=== PATIENT | male | born 1955 | race Caucasian/White ===

== ENCOUNTER 2020-06-18 03:25 | Inpatient (IN) | payer OTHER, MEDICAID, SELFPAY ==
[2020-06-18] VITALS (28 sets, daily range): BP systolic 90–148; BP diastolic 54–86; PULSE 90–121; RESP 13–34; TEMP 36.1–38.8; O2SAT 92–100; BMI 22.6; BMI 20.6
--- NOTE | 2020-06-18 | DI.RAD.S_ITS ---
PROCEDURE: XR HIP W PEL IF DONE RT 2V INDICATIONS: RIGHT ORIF FEMUR NAIL TECHNIQUE: 4 intraoperative views of the hip were acquired. COMPARISON: Located Within [facility], CR, XR HIP W PEL IF DONE RT 2V, 06/18/2020, 3:47. FINDINGS: Right hip intramedullary vivian and dynamic hip screws. Hardware is in the expected position. Right hip intertrochanteric fracture. No dislocation. IMPRESSION: Intraoperative image guidance provided. Dictated by: Aristeo Lam M.D. on 06/18/2020 at 22:13 Approved by: Aristeo Lam M.D. on 06/18/2020 at 22:15
--- NOTE | 2020-06-18 03:39 | DI.RAD.S_ITS ---
PROCEDURE: XR HIP W PEL IF DONE RT 2V INDICATIONS: fall, hip fracture on exam TECHNIQUE: AP pelvis with lateral view(s) of the right hip(s). COMPARISON: None. FINDINGS: Bones: Comminuted, intertrochanteric proximal right femur fracture which is in varus angulation. Postsurgical changes compatible with ORIF left femur fracture. Soft tissues: The visualized bowel gas pattern is normal. No suspicious soft tissue calcifications. IMPRESSION: Acute, comminuted, intertrochanteric right femur fracture. Dictated by: Galilea Patterson MD, PhD on 06/18/2020 at 8:44 Approved by: Galilea Patterson MD, PhD on 06/18/2020 at 8:45
--- NOTE | 2020-06-18 03:57 | ED.LOWEXIN ---
HPI - Extremity Injury (Lower) General Chief Complaint: Extremity Injury, Lower Stated Complaint: Right hip pain Time Seen by Provider: 06/18/20 03:25 Source: patient, family and EMS Mode of arrival: EMS Limitations: no limitations History of Present Illness HPI Narrative: 65M smoker with history of alcohol abuse presents by EMS from [facility] for evaluation of hip injury. He states he fell a few days ago and has had terrible hip pain ever since. He doesn't think he hurt anything else and doesn't really know the specifics. He was in his chair and slid to the ground and has been there for an undetermined length of time. [facility] evaluated him and found him to be hemodynamically stable, but with fever, elevated HR, and Lactate 2.2 He complains of severe right hip pain and denies any other symptoms. He denies any headache, head injury or neck pain. He denies runny nose, sore throat or cough. He denies any chest pain or shortness of breath. He has no abdominal pain, nausea, vomiting or diarrhea. Denies any dysuria, frequency or urgency. He admits to significant right hip pain but denies any numbness, tingling or weakness. MD complaint: hip injury Onset (ago): unknown Injury: Right: hip Place: home Severity: severe Relieving factors: immobilization Exacerbating factors: weight bearing and movement Context: fall Associated symptoms: snap/pop sensation Other symptoms: none Related Data Previous Rx's Medication Instructions Recorded vitamin B complex-folic acid 0.4 mg PO QDAY #120 tab 06/10/16 [Complex B-100] acetaminophen 0 mg PO Q4HP PRN #30 09/07/17 chlordiazepoxide HCl 50 mg PO QID #30 cap 09/07/17 levofloxacin [Levaquin] 500 mg PO 1400 #5 tab 09/07/17 nicotine 7 mg TOPICAL QDAY #30 patch 09/07/17 Review of Systems Constitutional Constitutional: Denies chills, Denies fatigue, Denies fever(s), Denies frequent falls, Denies lethargy and Denies weakness Eyes Eyes: Denies change in vision, Denies eye discharge, Denies irritation and Denies loss of vision ENT Ears, Nose, Mouth, and Throat: Denies change in voice, Denies dizziness, Denies neck pain, Denies sore throat and Denies throat swelling Cardiovascular Cardiovascular: Denies chest pain, Denies irregular heart rhythm, Denies lightheadedness, Denies palpitations, Denies dyspnea, Denies dyspnea on exertion and Denies orthopnea Respiratory Respiratory: Denies cough, Denies dyspnea, Denies dyspnea on exertion and Denies wheezing Gastrointestinal Gastrointestinal: Denies abdominal pain, Denies change in bowel habits, Denies diarrhea, Denies nausea and Denies vomiting Musculoskeletal Musculoskeletal: Reports deformity, Reports arthralgias, Reports joint swelling, Reports limited range of motion, Denies neck pain and Denies numbness Integumentary/Breasts Skin/Breast: Denies pruritus, Denies erythema, Denies rash and Denies wounds Neurologic Neurologic: Denies behavioral changes, Denies confusion, Denies dizziness, Denies frequent falls, Denies loss of vision, Denies numbness and Denies weakness Psychiatric Psychiatric: Denies anxiety, Denies behavioral changes, Denies confusion, Denies depression, Denies homicidal ideation and Denies suicidal ideation Endocrine Endocrine: Denies fatigue, Denies flushing and Denies palpitations Hematologic/Lymphatic Hematologic/Lymphatic: Denies easy bruising Allergic/Immunologic Allergic/Immunologic: Denies urticaria, Denies throat swelling and Denies wheezing Patient History Social History Smoking Status: Current every day smoker Smoking Status: Current every day smoker Substance Use Type: does not use Exam Narrative Exam Narrative: GENERAL: [65] year old patient appears older than stated age. GCS 15. In obvious distress. Smells of urine HEAD: Atraumatic. Normocephalic. Temporal wasting. EYES: Pupils equal round and reactive. Extraocular motions intact. No scleral icterus. No injection or drainage. ENT: Nose without bleeding, purulent drainage. Throat without erythema, tonsillar hypertrophy or exudate. Airway patent. NECK: Trachea midline. Non tender CARDIOVASCULAR: Tachycardic but regular rhythm without murmurs, gallops, or rubs. RESPIRATORY: Clear to auscultation. Breath sounds equal bilaterally. No wheezes, rales, or rhonchi. GASTROINTESTINAL: Abdomen soft, non-tender, nondistended. EXTREMITIES: Significant right hip pain with shortening external rotation. There is a large purple with yellowing area of ecchymosis on the right medial thigh BACK: Nontender without deformity or crepitance. No flank tenderness. NEURO: AOx3. SKIN: No rash or erythema of visible areas Initial Vital Signs Initial Vital Signs: Vital Signs Pulse Rate 118 H 06/18/20 03:33 Blood Pressure 116/69 06/18/20 03:33 Pulse Oximetry 96 06/18/20 03:33 Course Orders Ordered: ED Orders 06/18/20 03:39 XR hip w pel if done RT 2V Stat 06/18/20 04:04 CT cervical spine wo con Stat CT chest abd pel w con Stat CT head/brain wo con Stat 06/18/20 04:06 C-Reactive Protein Quant Stat COVID19 Stat Complete Blood Count AUTO DIFF Stat Comprehensive Metabolic Panel Stat D Dimer Stat Ethanol (ETOH) Stat Ferritin Stat Lactate (Lactic Acid) Stat Lactate Dehydrogenase Stat Procalcitonin Stat Prothrombin Time INR Stat Troponin & CK Cardiac Panel Stat 06/18/20 04:17 Blood Culture Stat 06/18/20 05:15 Urinalysis and Microscopic Stat 06/18/20 06:31 Education, smoking cessation ONGOING 06/18/20 06:37 Phosphorous Stat 06/18/20 06:39 Consult to Dietitian, Adult Routine Consult to Discharge Planning Routine Lactated Ringer's (Lactated Ringers) 1,000 mls @ 100 mls/hr IV CONT SAGRARIO Metoclopramide HCl (Metoclopramide 10 Mg/2 Ml Inj) 10 mg IV Q6H PRN PRN Reason: Nausea Naloxone HCl (Naloxone 0.4 Mg/Ml Vial) 0.2 mg IV Q2MIN PRN PRN Reason: Opiate Reversal Discontinued Medications Hydromorphone HCl (Hydromorphone 0.5 Mg Inj) 0.5 mg IV NOW ONE Stop: 06/18/20 06:36 Last Admin: 06/18/20 06:38 Dose: 0.5 mg Documented by: KEVIN Levofloxacin (Levaquin) 750 mg in 150 mls @ 100 mls/hr IV NOW ONE Stop: 06/18/20 05:08 Last Admin: 06/18/20 04:42 Dose: Not Given Documented by: KEVIN Lactated Ringer's (Lactated Ringers) 1,908 mls @ 636 mls/hr 30 ml/kg infuse over 3 hr (1908 ml) IV NOW ONE Stop: 06/18/20 06:41 Last Admin: 06/18/20 04:55 Dose: 636 mls/hr Documented by: KEVIN Piperacillin Sod/Tazobactam (Sod 4.5 gm/ Sodium Chloride) 100 mls @ 200 mls/hr IV NOW ONE Stop: 06/18/20 04:24 Last Infusion: 06/18/20 05:32 Dose: 0 mls/hr Documented by: Admin: 06/18/20 04:56 Dose: 200 mls/hr Documented by: KEVIN Vancomycin HCl (Vancomycin) 1,250 mg in 250 mls @ 250 mls/hr IV NOW ONE Stop: 06/18/20 05:23 Last Infusion: 06/18/20 06:35 Dose: 0 mls/hr Documented by: Admin: 06/18/20 05:35 Dose: 250 mls/hr Documented by: KEVIN Consultations Consultation #1: Discussion with on-call Orthopedics, he is aware of the case but given the infected tissue in the region of the repair it is likely going to be a surgical debridement by General surgery 1st. Consultation #2: Call to General surgery. We discussed the case and sure the opinion based on the presentation, the exam, the labs and imaging that this is unlikely to be necrotizing fasciitis, she will see the patient early in the morning Consultation #3: Hospitalist to the bedside to perform independent history and physical exam. He will bring the patient on his service and help coordinate consultations appropriately Vital Signs Vital signs: Vital Signs - 8 hr 06/18/20 03:33 06/18/20 03:34 06/18/20 03:46 Temperature 102 F H Pulse Rate 118 H 120 H 118 H Respiratory Rate 20 Blood Pressure 116/69 116/69 122/74 Pulse Oximetry 96 97 98 06/18/20 04:00 06/18/20 04:30 06/18/20 04:32 Temperature Pulse Rate 121 H 119 H 118 H Respiratory Rate 23 Blood Pressure 141/86 H Pulse Oximetry 97 98 98 06/18/20 05:00 06/18/20 05:30 06/18/20 06:00 Temperature Pulse Rate 118 H 111 H 111 H Respiratory Rate 34 H 21 22 Blood Pressure 148/86 H Pulse Oximetry 97 98 97 MDM - Extremity Injury (Lower) Lab Data Result diagrams: 06/18/20 04:06 06/18/20 04:06 Labs: Lab Results 06/18/20 06/18/20 06/18/20 Range/Units 04:06 04:06 04:06 WBC 7.5 (4.5-11.0) X10^3/uL RBC 3.78 L (4.5-5.9) X10^6/uL Hgb 12.6 L (13.5-17.5) g/dL Hct 36.3 L (41-53) % MCV 95.9 (80-100) fL MCH 33.4 (26-34) PG MCHC 34.8 (30-36) % RDW 13.9 (11.6-14.8) % Plt Count 182 (150-400) X10^3/uL Neut % (Auto) 83.6 H (50-75) % Lymph % (Auto) 7.2 L (25-40) % [place] % (Auto) 8.6 (3-14) % Eos % (Auto) 0.2 L (2-4) % Baso % (Auto) 0.4 (0-2) % Neut # (Auto) 6300 (0216-7166) /uL Lymph # (Auto) 500 L (5281-4021) /uL [place] # (Auto) 700 (0-900) /uL Eos # (Auto) 0 (0-450) /uL Baso # (Auto) 0 (0-100) /uL PT (10.1-12.7) SECONDS INR (0.9-1.3) D-Dimer 2001 H (<230) ng/mL Sodium (137-145) mmol/L Potassium (3.4-5.1) mmol/L Chloride (98-107) mmol/L Carbon Dioxide (22-32) mmol/L BUN (9-20) mg/dL Creatinine (0.66-1.25) mg/dL Estimated GFR (>60) mL/min BUN/Creatinine Ratio (6-22) Glucose (80-110) mg/dL Lactate (0.7-2.1) mmol/L Calcium (8.4-10.2) mg/dL Ferritin 263 (18-464) ng/mL Total Bilirubin (0.2-1.3) mg/dL AST (17-59) IU/L ALT (<50) IU/L Alkaline Phosphatase (38-126) U/L Lactate Dehydrogenase 579 (313-618) U/L Total Creatine Kinase (55-170) U/L CK-MB (CK-2) (<2.37) ng/mL CK-MB (CK-2) Rel Index (1.5-5.0) % Troponin I (0.01-0.034) ng/mL C-Reactive Protein 15.2 H (<1.0) mg/dL Total Protein (6.3-8.2) g/dL Albumin (3.5-5.0) g/dL Globulin (1.7-4.1) g/dL Albumin/Globulin Ratio (1.0-2.8) Procalcitonin (<0.5) ng/mL Urine Color Urine Appearance Urine pH (4.5-8.0) Ur Specific [place] (1.000-1.035) Urine Protein (Negative) Urine Glucose (UA) (Negative) g/dL Urine Ketones (NEGATIVE) Urine Occult Blood (Negative) Urine Nitrate (Negative) Urine Bilirubin (NEGATIVE) Urine Urobilinogen (0.2) E.U./dL Ur Leukocyte Esterase (NEGATIVE) Ethyl Alcohol ( - 10) mg/dL COVID-19 PCR (Negative) 06/18/20 06/18/20 06/18/20 Range/Units 04:06 04:06 04:06 WBC (4.5-11.0) X10^3/uL RBC (4.5-5.9) X10^6/uL Hgb (13.5-17.5) g/dL Hct (41-53) % MCV (80-100) fL MCH (26-34) PG MCHC (30-36) % RDW (11.6-14.8) % Plt Count (150-400) X10^3/uL Neut % (Auto) (50-75) % Lymph % (Auto) (25-40) % [place] % (Auto) (3-14) % Eos % (Auto) (2-4) % Baso % (Auto) (0-2) % Neut # (Auto) (8087-5106) /uL Lymph # (Auto) (6695-8684) /uL [place] # (Auto) (0-900) /uL Eos # (Auto) (0-450) /uL Baso # (Auto) (0-100) /uL PT 12.7 (10.1-12.7) SECONDS INR 1.1 (0.9-1.3) D-Dimer (<230) ng/mL Sodium 122 L (137-145) mmol/L Potassium 4.3 (3.4-5.1) mmol/L Chloride 88 L (98-107) mmol/L Carbon Dioxide 25 (22-32) mmol/L BUN 9 (9-20) mg/dL Creatinine 0.59 L (0.66-1.25) mg/dL Estimated GFR > 60.0 (>60) mL/min BUN/Creatinine Ratio 15.3 (6-22) Glucose 92 (80-110) mg/dL Lactate (0.7-2.1) mmol/L Calcium 8.7 (8.4-10.2) mg/dL Ferritin (18-464) ng/mL Total Bilirubin 0.7 (0.2-1.3) mg/dL AST 45 (17-59) IU/L ALT 33 (<50) IU/L Alkaline Phosphatase 81 (38-126) U/L Lactate Dehydrogenase (313-618) U/L Total Creatine Kinase (55-170) U/L CK-MB (CK-2) (<2.37) ng/mL CK-MB (CK-2) Rel Index (1.5-5.0) % Troponin I (0.01-0.034) ng/mL C-Reactive Protein (<1.0) mg/dL Total Protein 6.1 L (6.3-8.2) g/dL Albumin 3.1 L (3.5-5.0) g/dL Globulin 3.0 (1.7-4.1) g/dL Albumin/Globulin Ratio 1.0 (1.0-2.8) Procalcitonin 0.17 (<0.5) ng/mL Urine Color Urine Appearance Urine pH (4.5-8.0) Ur Specific [place] (1.000-1.035) Urine Protein (Negative) Urine Glucose (UA) (Negative) g/dL Urine Ketones (NEGATIVE) Urine Occult Blood (Negative) Urine Nitrate (Negative) Urine Bilirubin (NEGATIVE) Urine Urobilinogen (0.2) E.U./dL Ur Leukocyte Esterase (NEGATIVE) Ethyl Alcohol ( - 10) mg/dL COVID-19 PCR (Negative) 06/18/20 06/18/20 06/18/20 Range/Units 04:06 04:06 04:06 WBC (4.5-11.0) X10^3/uL RBC (4.5-5.9) X10^6/uL Hgb (13.5-17.5) g/dL Hct (41-53) % MCV (80-100) fL MCH (26-34) PG MCHC (30-36) % RDW (11.6-14.8) % Plt Count (150-400) X10^3/uL Neut % (Auto) (50-75) % Lymph % (Auto) (25-40) % [place] % (Auto) (3-14) % Eos % (Auto) (2-4) % Baso % (Auto) (0-2) % Neut # (Auto) (5149-4789) /uL Lymph # (Auto) (4807-2260) /uL [place] # (Auto) (0-900) /uL Eos # (Auto) (0-450) /uL Baso # (Auto) (0-100) /uL PT (10.1-12.7) SECONDS INR (0.9-1.3) D-Dimer (<230) ng/mL Sodium (137-145) mmol/L Potassium (3.4-5.1) mmol/L Chloride (98-107) mmol/L Carbon Dioxide (22-32) mmol/L BUN (9-20) mg/dL Creatinine (0.66-1.25) mg/dL Estimated GFR (>60) mL/min BUN/Creatinine Ratio (6-22) Glucose (80-110) mg/dL Lactate 1.5 (0.7-2.1) mmol/L Calcium (8.4-10.2) mg/dL Ferritin (18-464) ng/mL Total Bilirubin (0.2-1.3) mg/dL AST (17-59) IU/L ALT (<50) IU/L Alkaline Phosphatase (38-126) U/L Lactate Dehydrogenase (313-618) U/L Total Creatine Kinase 385 H (55-170) U/L CK-MB (CK-2) 6.46 H (<2.37) ng/mL CK-MB (CK-2) Rel Index 1.7 (1.5-5.0) % Troponin I < 0.012 (0.01-0.034) ng/mL C-Reactive Protein (<1.0) mg/dL Total Protein (6.3-8.2) g/dL Albumin (3.5-5.0) g/dL Globulin (1.7-4.1) g/dL Albumin/Globulin Ratio (1.0-2.8) Procalcitonin (<0.5) ng/mL Urine Color Urine Appearance Urine pH (4.5-8.0) Ur Specific [place] (1.000-1.035) Urine Protein (Negative) Urine Glucose (UA) (Negative) g/dL Urine Ketones (NEGATIVE) Urine Occult Blood (Negative) Urine Nitrate (Negative) Urine Bilirubin (NEGATIVE) Urine Urobilinogen (0.2) E.U./dL Ur Leukocyte Esterase (NEGATIVE) Ethyl Alcohol < 10 ( - 10) mg/dL COVID-19 PCR (Negative) 06/18/20 06/18/20 Range/Units 04:06 05:15 WBC (4.5-11.0) X10^3/uL RBC (4.5-5.9) X10^6/uL Hgb (13.5-17.5) g/dL Hct (41-53) % MCV (80-100) fL MCH (26-34) PG MCHC (30-36) % RDW (11.6-14.8) % Plt Count (150-400) X10^3/uL Neut % (Auto) (50-75) % Lymph % (Auto) (25-40) % [place] % (Auto) (3-14) % Eos % (Auto) (2-4) % Baso % (Auto) (0-2) % Neut # (Auto) (8692-5321) /uL Lymph # (Auto) (5788-7971) /uL [place] # (Auto) (0-900) /uL Eos # (Auto) (0-450) /uL Baso # (Auto) (0-100) /uL PT (10.1-12.7) SECONDS INR (0.9-1.3) D-Dimer (<230) ng/mL Sodium (137-145) mmol/L Potassium (3.4-5.1) mmol/L Chloride (98-107) mmol/L Carbon Dioxide (22-32) mmol/L BUN (9-20) mg/dL Creatinine (0.66-1.25) mg/dL Estimated GFR (>60) mL/min BUN/Creatinine Ratio (6-22) Glucose (80-110) mg/dL Lactate (0.7-2.1) mmol/L Calcium (8.4-10.2) mg/dL Ferritin (18-464) ng/mL Total Bilirubin (0.2-1.3) mg/dL AST (17-59) IU/L ALT (<50) IU/L Alkaline Phosphatase (38-126) U/L Lactate Dehydrogenase (313-618) U/L Total Creatine Kinase (55-170) U/L CK-MB (CK-2) (<2.37) ng/mL CK-MB (CK-2) Rel Index (1.5-5.0) % Troponin I (0.01-0.034) ng/mL C-Reactive Protein (<1.0) mg/dL Total Protein (6.3-8.2) g/dL Albumin (3.5-5.0) g/dL Globulin (1.7-4.1) g/dL Albumin/Globulin Ratio (1.0-2.8) Procalcitonin (<0.5) ng/mL Urine Color Yellow Urine Appearance Clear Urine pH 6.0 (4.5-8.0) Ur Specific [place] 1.015 (1.000-1.035) Urine Protein Negative (Negative) Urine Glucose (UA) Negative (Negative) g/dL Urine Ketones Negative (NEGATIVE) Urine Occult Blood 1+ H (Negative) Urine Nitrate Negative (Negative) Urine Bilirubin Negative (NEGATIVE) Urine Urobilinogen 0.2 (0.2) E.U./dL Ur Leukocyte Esterase Negative (NEGATIVE) Ethyl Alcohol ( - 10) mg/dL COVID-19 PCR Negative (Negative) Imaging Data CT scan - head: Radiologist's Impression: No bleed CT - cervical spine: Radiologist's Impression: No fracture Pelvis w/R Hip: Attestation: I personally reviewed and interpreted this imaging study as follows: My Impression: R hip fx Radiologist's Impression: Comminuted R intertrochanteric ECG Data Pacemaker function: abnormal sensing function and pacemaker associated dysrhythmia MDM Narrative Medical decision making narrative: Patient is quite ill with sepsis, likely from septic decubitus ulcer with central necrotizing core on the right buttock. He suffered an intertrochanteric fracture which will need repair once patient is medically stable. Necrotizing fasciitis considered, however there is no evidence of rapid onset, there is no pain out of proportion to exam, there is no evidence of subcu air her fascial involvement on CT or exam. Patient has critically elevated D-dimer, but reports no chest pain or shortness of breath nor does he have hypoxia or evidence of hypotension. CT of the chest was done with trauma protocol given the unclear nature of his initial fall, IV contrast seen within pulmonary arteries and no filling defect noted. It is likely the elevated D-dimer is due to evolution of the hematoma in his right medial thigh from fracture Patient will require IV antibiotics, likely surgical debridement and eventual orthopedic repair of his hip. Patient understands the plan and is in full agreement. Critical Care Time Critical Care Time Critical Care Time: Yes Total Critical Care Time: 30 Attestation: The high probability of a clinically significant, sudden or life threatening deterioration of the [CV] system(s) required my full and direct attention, intervention and personal management. The aggregate critical care time was [] minutes. This time is in addition to time spent performing reported procedures but includes the following: [X] Data Review and interpretation [X] Patient assessment and monitoring of vital signs [X] Documentation [X] Medication orders and management Discharge Plan Departure Patient Disposition: Admitted As Inpatient Clinical Impression: Skin necrosis Sepsis Qualifiers: Sepsis type: sepsis due to unspecified organism Sepsis acute organ dysfunction status: without acute organ dysfunction Qualified Code(s): A41.9 - Sepsis, unspecified organism Closed hip fracture Qualifiers: Encounter type: initial encounter Laterality: right Qualified Code(s): S72.001A - Fracture of unspecified part of neck of right femur, initial encounter for closed fracture
--- NOTE | 2020-06-18 04:04 | DI.CT.S_ITS ---
PROCEDURE: CT CERVICAL SPINE WO CON INDICATIONS: trauma, unknown down time TECHNIQUE: Noncontrast 3 mm thick sections acquired from the skull base to the T4 level. Sagittal and coronal reformats were then constructed. For radiation dose reduction, the following was used: automated exposure control, adjustment of mA and/or kV according to patient size. COMPARISON: None. FINDINGS: Image quality: Excellent. Bones: No fractures or dislocations. Visualized superior ribs are intact. Spine degenerative disc disease and facet arthropathy. Soft tissues: Prevertebral soft tissues are normal in thickness. No paravertebral hematomas. No apical pneumothoraces. IMPRESSION: No fracture. No acute osseous lesion. If symptoms and/or clinical suspicion for pathology persists, evaluation with MRI should be considered for further assessment. Dictated by: Galilea Patterson MD, PhD on 06/18/2020 at 8:05 Approved by: Galilea Patterson MD, PhD on 06/18/2020 at 8:08
--- NOTE | 2020-06-18 04:04 | DI.CT.S_ITS ---
PROCEDURE: CT CHEST ABD PEL W CON INDICATIONS: trauma, unknown down time, obvious hip fracture TECHNIQUE: After the administration of intravenous contrast, 5 mm thick sections acquired from the lung apices to the symphysis. 2.5 mm thick coronal and sagittal reformats were acquired. Additional 7 mm thick coronal maximum intensity projection (MIP) reformats acquired through the lungs. Optional 10-minute delayed imaging may be performed from the kidneys to the bladder. For radiation dose reduction, the following was used: automated exposure control, adjustment of mA and/or kV according to patient size. COMPARISON: [facility], CT, CT CHEST ABD PELVIS W CON, 02/01/2017, 22:15. FINDINGS: Image quality: Excellent. CHEST: Lungs: No pulmonary contusions or lacerations. Scattered subsegmental atelectasis and/or scarring. No focal consolidation. No pneumothorax or hemothorax. Airway thickening in keeping with nonspecific bronchitis and/or reactive airways disease. 7 mm focus of nodular consolidation seen in the right posterior sulcus on image 284/12, which is technically nonspecific possibly scarring versus nodule Mediastinum: No mediastinal hematomas. Heart size is normal. Coronary artery calcifications are present. No pericardial effusion. Mild ectasia of the ascending thoracic aorta which is within physiologic limits. No mediastinal or hilar adenopathy. Chest wall: No rib fractures. No subcutaneous emphysema. No axillary or supraclavicular adenopathy. Thyroid is grossly unremarkable ABDOMEN: Hepatic steatosis. Incidentally noted gallbladder sludge and 2 mm gallstone . Presumed vascular calcifications seen in the region of the rocio hepatis. These could also be calcified small lymph nodes. Biliary system is non-dilated. Pancreas enhances normally, without transection. Spleen is normal in size and enhancement, without lacerations. No adrenal hematomas. Both kidneys enhance normally, without hydronephrosis or lacerations. Peritoneum and bowel: No free fluid or air. Colonic diverticulosis is seen without evidence of acute complication. Small hiatal hernia. There is diffuse esophageal mural thickening which is indeterminate although could be due to under distension. Further evaluation with upper endoscopy could be performed if there is suspicion of esophagitis. Possible sigmoid mural thickening although this could be due to under distension. Nodes and vessels: No retroperitoneal or mesenteric adenopathy. Aorta and inferior vena cava are normal in size and enhancement. Miscellaneous: No ventral hernias. PELVIS: Circumferential bladder mural thickening, technically age indeterminate finding and could be correlated with urinalysis data. Miscellaneous: No inguinal hernias or adenopathy. Bones: Diffuse osteopenia. Chronic appearing fractures of the left femur and left superior and inferior pubic ramus. There is an acute comminuted intertrochanteric fracture of the right femur. Postsurgical fixation of the patella and proximal left femur. Minimally displaced probably chronic fractures of the right L2 and L3 transverse processes. IMPRESSION: Acute comminuted intratrochanteric right femur fracture Possible sigmoid wall thickening, age indeterminate and technically nonspecific. If clinically warranted, further evaluation with lower endoscopy or barium enema could be considered. Incidentally noted diffuse esophageal mural thickening, which could be further assessed with upper endoscopy if there is clinical concern . Indeterminate right posterior sulcus subcentimeter pulmonary subpleural focus which could be scarring/atelectasis however cannot exclude pulmonary nodule. Recommend follow-up with noncontrast chest CT in 3 months. Finding and recommendation was personally telephoned and discussed with on 06/18/20 Additional chronic and incidental findings as above. Dictated by: Parviz Ann M.D. on 06/18/2020 at 8:53 Approved by: Parviz Ann M.D. on 06/18/2020 at 9:54
--- NOTE | 2020-06-18 04:04 | DI.CT.S_ITS ---
PROCEDURE: CT HEAD/BRAIN WO CON INDICATIONS: trauma, unknown down time TECHNIQUE: Noncontrast 4.5 mm thick angled axial sections acquired from the foramen magnum to the vertex, with coronal and sagittal reformats. For radiation dose reduction, the following was used: automated exposure control, adjustment of mA and/or kV according to patient size. COMPARISON: None. FINDINGS: Image quality: Excellent. CSF spaces: Basal cisterns are patent. No extra-axial fluid collections. The ventricles are symmetric in size and shape. Brain: No intracranial bleeds or masses. There is cerebral volume loss for age, with resultant ventricular and sulcal prominence. There are periventricular and deep white matter chronic small vessel ischemic changes. There is intracranial internal carotid artery atherosclerosis. Skull and face: Calvarium and visualized facial bones appear intact, without suspicious lesions. Sinuses: Mild mucosal thickening noted in the maxillary sinuses bilaterally. The mastoids are clear. IMPRESSION: No acute intracranial disease process. Final interpretation is concordant with preliminary interpretation. Dictated by: Galilea Patterson MD, PhD on 06/18/2020 at 7:31 Approved by: Galilea Patterson MD, PhD on 06/18/2020 at 7:32
[2020-06-18 04:34] LABS: Add Manual Diff / Slide Review NO; Basophils Absolute Auto 0 /uL (0-100); Basophils Percent Auto 0.4 % (0-2); Eosinophils Absolute Auto 0 /uL (0-450); Eosinophils Percent Auto 0.2 % (2-4); Hematocrit 36.3 % (41-53); Hemoglobin 12.6 g/dL (13.5-17.5); Lymphocytes Absolute Auto 500 /uL (1100-4500); Lymphocytes Percent Auto 7.2 % (25-40); Mean Corpuscular HGB Conc 34.8 % (30-36); Mean Corpuscular Hemoglobin 33.4 PG (26-34); Mean Corpuscular Volume 95.9 fL (80-100); Monocytes Absolute Auto 700 /uL (0-900); Monocytes Percent Auto 8.6 % (3-14); Neutrophils Absolute Auto 6300 /uL (1500-7000); Neutrophils Percent Auto 83.6 % (50-75); Platelet Count 182 X10^3/uL (150-400); Red Blood Cell Count 3.78 X10^6/uL (4.5-5.9); Red Cell Distribution Width 13.9 % (11.6-14.8); White Blood Cell Count 7.5 X10^3/uL (4.5-11.0)
[2020-06-18 04:35] LABS: INR 1.1 (0.9-1.3); Prothrombin Time 12.7 SECONDS (10.1-12.7)
[2020-06-18 04:38] LABS: COVID19 -Nasal RAPID Negative (Negative); Lactate (Lactic Acid) 1.5 mmol/L (0.7-2.1)
[2020-06-18 04:40] LABS: Ethanol (ETOH) < 10 mg/dL
[2020-06-18 04:49] LABS: Creatine Kinase 385 U/L (55-170)
[2020-06-18 04:50] LABS: D Dimer 2001 ng/mL (<230)
[2020-06-18 04:53] LABS: Lactate Dehydrogenase 579 U/L (313-618)
[2020-06-18] MEDS: LACTATED RINGERS 636 ML IV (04:55)
[2020-06-18] MEDS: PIPERACILLIN/TAZO 4.5 GM in SODIUM CHLORIDE 0.9% 100 ML 200 ML IV (04:56)
[2020-06-18 04:59] LABS: Alanine Aminotransferase 33 IU/L (<50); Albumin 3.1 g/dL (3.5-5.0); Alkaline Phosphatase 81 U/L (38-126); Aspartate Aminotransferase 45 IU/L (17-59); BUN Creatinine Ratio 15.3 (6-22); Bilirubin Total 0.7 mg/dL (0.2-1.3); Blood Urea Nitrogen 9 mg/dL (9-20); Calcium 8.7 mg/dL (8.4-10.2); Carbon Dioxide 25 mmol/L (22-32); Chloride 88 mmol/L (98-107); Estimated Glomerular Filt Rate > 60.0 mL/min (>60); Glucose 92 mg/dL (80-110); HEMOLYSIS < 15 (0-50); Potassium 4.3 mmol/L (3.4-5.1); Sodium 122 mmol/L (137-145); Total Protein 6.1 g/dL (6.3-8.2)
[2020-06-18 05:01] LABS: Troponin I < 0.012 ng/mL (0.01-0.034)
[2020-06-18 05:04] LABS: CKMB % Relative Index 1.7 % (1.5-5.0); Creatine Kinase MB 6.46 ng/mL (<2.37)
[2020-06-18 05:05] LABS: C-Reactive Protein Quant 15.2 mg/dL (<1.0); Procalcitonin 0.17 ng/mL (<0.5)
[2020-06-18 05:26] LABS: Ferritin 263 ng/mL (18-464)
[2020-06-18] MEDS: VANCOMYCIN 1,250 MG/250 ML PIGGYBACK 250 MG IV (05:35)
[2020-06-18 06:27] LABS: Bacteria Urine None Seen; WBC Urine None Seen (0-5/HPF)
[2020-06-18 06:30] LABS: Appearance Urine UA CLEAR; Bilirubin Urine UA NEGATIVE (NEGATIVE); Color Urine UA YELLOW; Glucose Urine UA NEGATIVE (Negative); Ketones Urine UA NEGATIVE (NEGATIVE); Leukocyte Esterase Urine UA NEGATIVE (NEGATIVE); Nitrite Urine UA NEGATIVE (Negative); Occult Blood Urine UA 1+ (Negative); Protein Urine UA NEGATIVE (Negative); Specific Gravity Urine UA 1.015 (1.000-1.035); Urobilinogen Urine UA 0.2 E.U./dL (0.2)
[2020-06-18] MEDS: HYDROMORPHONE 0.5 MG INJ IV (06:38)
--- NOTE | 2020-06-18 06:41 | PM.HP.1 ---
History of Present Illness History of Present Illness Date Patient Seen: 06/18/20 Time Patient Seen: 06:15 Chief complaint: Right hip pain Narrative: Mr. Pradip Barron is a 65-year-old male who is a current smoker with a past medical history of hypertension and alcoholism who presents to the ER via EMS with right hip pain. The patient reports that he tripped and fell 10 days ago and had right hip pain and was unable to bear weight. He remained at home and was getting around in his wheelchair. He slid out of his wheelchair who was on the floor for approximately 5 hours until found by his friends who check on him regularly and summon EMS. The patient reports no loss of consciousness, head or neck pain following his fall. The patient denies constitutional symptoms of fevers or chills has had no headaches or dizziness. He endorses continuing to drink 3 beers daily and a pack of cigarettes lasts him approximately 2 days. He denies complaints of chest pain or palpitations. He reports no shortness of breath and has a chronic cough that is productive for milky colored sputum. Reports no complaints of abdominal pain, describes as stomach is tight, and denies nausea vomiting, diarrhea or constipation. The patient indicates that prior to his fall he was ambulatory in used no assistive devices. He has a wheelchair that he is currently using having had a previous left hip fracture. Upon arrival to the ER patient has a temperature of 102? degrees, tachycardic at 120, blood pressure of 116/69 respirations 20 saturating 97% on room air. X-ray of the pelvis and hip finds a right comminuted intertrochanteric fracture. A CT of the chest obtained related to trauma finding no acute intrathoracic process. CT the cervical spine finds no bony abnormalities. CT of the head finds no acute intracranial processes, small-vessel ischemic changes. On laboratory analysis the patient has white count of 7.5, hemoglobin of 12.6, hematocrit of 36.3 and platelets of 182. He has a PT of 12.7, INR 1.1, his D-dimer is 2001. On chemistries he has a sodium of 122, potassium of 4.3, BUN of 9 and creatinine 0.59. His nonfasting glucose is 92. He has a total bilirubin of 0.7, AST of 45, ALT 33 and alkaline phosphatase of 81. His albumin is 3.1. He has an LDH of 579, CRP of 15.2, procalcitonin is 0.17 and a lactate of 1.5 his total CK is 385 with CK-MB of 6.46 for an index of 1.7. His troponin is negative at less than 0.012. His alcohol screening is less than 10. COVID screening is negative. In the ER the patient received to sepsis bolus of lactated Ringer's Zosyn 4.5 g IV, Levaquin 750 mg IV and vancomycin 1250 mg IV. General surgery is contacted related to sacral wound requiring debridement and Dr. Farias agrees to consult. Orthopedics is also contacted and Dr. Betancourt agrees to consult. The patient is admitted to the hospitalist service for sacral unstageable decubitus ulcer and right hip fracture. Patient History Medical History (Updated 06/18/20 @ 07:03 by REDDY Ames) Alcohol abuse History of pneumothorax Hypertension Surgical History (Updated 06/18/20 @ 07:03 by REDDY Ames) History of hip surgery History of knee surgery Family & Social History Family History (Updated 06/18/20 @ 07:04 by REDDY Ames) Brother Cancer Mother Alzheimer's dementia Safety & Behavioral: Feels Safe in Current Yes Environment Tobacco & Substance use: Smoking Status Current every day smoker Substance Use Type does not use Meds Home Medications and Allergies Home Medications Medication Instructions Recorded Confirmed Type vitamin B complex-folic acid 0.4 mg PO QDAY #120 tab 06/10/16 Rx [Complex B-100] acetaminophen 0 mg PO Q4HP PRN #30 09/07/17 Rx chlordiazepoxide HCl 50 mg PO QID #30 cap 09/07/17 Rx levofloxacin [Levaquin] 500 mg PO 1400 #5 tab 09/07/17 Rx nicotine 7 mg TOPICAL QDAY #30 patch 09/07/17 Rx Allergies Allergy/AdvReac Type Severity Reaction Status Date / Time No Known Drug Allergies Allergy Verified 06/18/20 06:57 Review of Systems Review of Systems ROS: Yes All systems reviewed with the patient and are negative except as otherwise documented Exam Vital Signs (past 8 hours): - 06/18/20 03:33 06/18/20 03:34 06/18/20 03:46 Temperature 102 F H Pulse Rate 118 H 120 H 118 H Respiratory Rate 20 Blood Pressure 116/69 116/69 122/74 Pulse Oximetry 96 97 98 06/18/20 04:00 06/18/20 04:30 06/18/20 04:32 Temperature Pulse Rate 121 H 119 H 118 H Respiratory Rate 23 Blood Pressure 141/86 H Pulse Oximetry 97 98 98 06/18/20 05:00 06/18/20 05:30 06/18/20 06:00 Temperature Pulse Rate 118 H 111 H 111 H Respiratory Rate 34 H 21 22 Blood Pressure 148/86 H Pulse Oximetry 97 98 97 Oxygen Delivery Method Room Air Narrative Exam Narrative: GENERAL APPEARANCE: well developed, unkempt male who appears older than his stated age lying left semi lateral on stretcher in pain with movement but no acute distress HEENT: Atraumatic, PERRLA, sclera is anicteric, EOMs intact without nystagmus, no rhinorrhea, mucous membranes are moist and pink. NECK/THYROID: neck supple, nontender to palpation, no step-offs, no JVD, no carotid bruit, no thyromegaly, trachea midline. LYMPH NODES: no cervical or supraclavicular lymphadenopathy. SKIN: Poor skin turgor, pink warm and dry, 7 x 6 cm oval sacral decubitus covered with eschar, mild erythema inferiorly towards the rectum and left lower lateral quadrant that is tender to palpation. HEART: Tachycardic rate and regular rhythm, S1-S2, no murmur, no rubs or gallops, brisk capillary refill, no edema LUNGS: Coarse breath sounds essentially more prominent on the left, no crackles, scattered end-expiratory wheeze, rattling cough. CHEST: Symmetrical movement, no accessory muscle use, good tidal volume, no pain to AP and lateral compression. ABDOMEN: Firm, no ascites appreciated, no distention, no epigastric or abdominal tenderness, no guarding or peritoneal signs, no flank or suprapubic tenderness, active bowel tones. EXTREMITIES: Left leg shortening, pain with movement or palpation, large hematoma medial right thigh firm to palpation with ecchymosis extending from the groin medially down to the sock, pain on palpation, distal CMS is intact NEUROLOGIC: AAO x4, no focal neurologic deficits, cranial nerves II-XII grossly intact, sensation intact to light touch, hearing grossly normal to speech. PSYCH: Com, cooperative, stable behavior Objective Labs Result Diagrams: 06/18/20 04:06 06/18/20 04:06 Labs: Laboratory Results - last 24 hr 06/18/20 06/18/20 06/18/20 04:06 04:06 04:06 WBC 7.5 RBC 3.78 L Hgb 12.6 L Hct 36.3 L MCV 95.9 MCH 33.4 MCHC 34.8 RDW 13.9 Plt Count 182 Neut % (Auto) 83.6 H Lymph % (Auto) 7.2 L Elk % (Auto) 8.6 Eos % (Auto) 0.2 L Baso % (Auto) 0.4 Neut # (Auto) 6300 Lymph # (Auto) 500 L [place] # (Auto) 700 Eos # (Auto) 0 Baso # (Auto) 0 PT INR D-Dimer 2001 H Sodium Potassium Chloride Carbon Dioxide BUN Creatinine Estimated GFR BUN/Creatinine Ratio Glucose Lactate Calcium Ferritin 263 Total Bilirubin AST ALT Alkaline Phosphatase Lactate Dehydrogenase 579 Total Creatine Kinase CK-MB (CK-2) CK-MB (CK-2) Rel Index Troponin I C-Reactive Protein 15.2 H Total Protein Albumin Globulin Albumin/Globulin Ratio Procalcitonin Urine Color Urine Appearance Urine pH Ur Specific [place] Urine Protein Urine Glucose (UA) Urine Ketones Urine Occult Blood Urine Nitrate Urine Bilirubin Urine Urobilinogen Ur Leukocyte Esterase Ethyl Alcohol COVID-19 PCR 06/18/20 06/18/20 06/18/20 04:06 04:06 04:06 WBC RBC Hgb Hct MCV MCH MCHC RDW Plt Count Neut % (Auto) Lymph % (Auto) Elk % (Auto) Eos % (Auto) Baso % (Auto) Neut # (Auto) Lymph # (Auto) Elk # (Auto) Eos # (Auto) Baso # (Auto) PT 12.7 INR 1.1 D-Dimer Sodium 122 L Potassium 4.3 Chloride 88 L Carbon Dioxide 25 BUN 9 Creatinine 0.59 L Estimated GFR > 60.0 BUN/Creatinine Ratio 15.3 Glucose 92 Lactate Calcium 8.7 Ferritin Total Bilirubin 0.7 AST 45 ALT 33 Alkaline Phosphatase 81 Lactate Dehydrogenase Total Creatine Kinase CK-MB (CK-2) CK-MB (CK-2) Rel Index Troponin I C-Reactive Protein Total Protein 6.1 L Albumin 3.1 L Globulin 3.0 Albumin/Globulin Ratio 1.0 Procalcitonin 0.17 Urine Color Urine Appearance Urine pH Ur Specific [place] Urine Protein Urine Glucose (UA) Urine Ketones Urine Occult Blood Urine Nitrate Urine Bilirubin Urine Urobilinogen Ur Leukocyte Esterase Ethyl Alcohol COVID-19 PCR 06/18/20 06/18/20 06/18/20 04:06 04:06 04:06 WBC RBC Hgb Hct MCV MCH MCHC RDW Plt Count Neut % (Auto) Lymph % (Auto) Elk % (Auto) Eos % (Auto) Baso % (Auto) Neut # (Auto) Lymph # (Auto) Elk # (Auto) Eos # (Auto) Baso # (Auto) PT INR D-Dimer Sodium Potassium Chloride Carbon Dioxide BUN Creatinine Estimated GFR BUN/Creatinine Ratio Glucose Lactate 1.5 Calcium Ferritin Total Bilirubin AST ALT Alkaline Phosphatase Lactate Dehydrogenase Total Creatine Kinase 385 H CK-MB (CK-2) 6.46 H CK-MB (CK-2) Rel Index 1.7 Troponin I < 0.012 C-Reactive Protein Total Protein Albumin Globulin Albumin/Globulin Ratio Procalcitonin Urine Color Urine Appearance Urine pH Ur Specific [place] Urine Protein Urine Glucose (UA) Urine Ketones Urine Occult Blood Urine Nitrate Urine Bilirubin Urine Urobilinogen Ur Leukocyte Esterase Ethyl Alcohol < 10 COVID-19 PCR 06/18/20 06/18/20 04:06 05:15 WBC RBC Hgb Hct MCV MCH MCHC RDW Plt Count Neut % (Auto) Lymph % (Auto) Elk % (Auto) Eos % (Auto) Baso % (Auto) Neut # (Auto) Lymph # (Auto) Elk # (Auto) Eos # (Auto) Baso # (Auto) PT INR D-Dimer Sodium Potassium Chloride Carbon Dioxide BUN Creatinine Estimated GFR BUN/Creatinine Ratio Glucose Lactate Calcium Ferritin Total Bilirubin AST ALT Alkaline Phosphatase Lactate Dehydrogenase Total Creatine Kinase CK-MB (CK-2) CK-MB (CK-2) Rel Index Troponin I C-Reactive Protein Total Protein Albumin Globulin Albumin/Globulin Ratio Procalcitonin Urine Color Yellow Urine Appearance Clear Urine pH 6.0 Ur Specific [place] 1.015 Urine Protein Negative Urine Glucose (UA) Negative Urine Ketones Negative Urine Occult Blood 1+ H Urine Nitrate Negative Urine Bilirubin Negative Urine Urobilinogen 0.2 Ur Leukocyte Esterase Negative Ethyl Alcohol COVID-19 PCR Negative Assessment & Plan Assessment & Plan narrative: This is a 65-year-old cachectic-appearing male who presents to the ER via EMS have been found to have a right hip fracture from a fall 10 days ago with a sacral decubitus unstageable covered with eschar. 1. Closed right comminuted intertrochanteric femur fracture, acute, present on admission, active. -the patient has sustained a fall 10 days ago with onset of acute right hip pain. Patient immobilized using wheelchair at home. -patient shortening external rotation of the right hip with large medial hematoma thigh extending down to the ankle. -pelvis and hip x-ray finds a right comminuted intertrochanteric hip fracture. -Dr. Betancourt has been contacted increase to consult. We appreciate his evaluation recommendations. -surgical orders per the orthopedic team. -ordered Dilaudid 0.5-1 mg every 4 hours as needed for pain. -patient is NPO. 2. Sacral decubitus, unstageable with eschar, acute, present on admission, active. -patient with a 7 cm x 6 cm sacral decubitus covered with eschar unstageable. The wound is dry with faint redness inferiorly and over the left lower quadrant and is tender to palpation concerning for sinus tracking. -surface culture has been obtained and blood cultures are obtained. -general surgery has been contacted and Dr. Farias has agreed to consult. We appreciate her evaluation and recommendations. -patient received Levaquin 750 mg in the emergency department. -additionally the patient received vancomycin 1250 mg in the emergency department. Will continue vancomycin 1000 mg every 12 hours with pharmacy to dose. -admission the patient received Zosyn 4.5 g IV x1 in the emergency department, will continue Zosyn 3.75 g IV every 6 hours. 3. Hyponatremia, acute, present on admission, active. -the patient is a sodium of 122 on admission labs. -hyponatremia related to alcoholism as well as dehydration. -will replete sodium with normal saline at 100 cc/hour and monitor sodium levels. 4. Alcohol abuse, chronic, stable. -the patient endorses consuming 3 beers nightly. On tox screening his alcohol level is less than 10. -ordered CIWA protocol. -ordered lorazepam p.o. or IV per CIWA protocol. 5. Hypertension, chronic, stable. -admission to the ER the patient has a blood pressure of 116/69. His receiving sepsis bolus of lactated Ringer's. -the patient is not on blood pressure control medication. -will trend blood pressures treat if indicated. VTE prophylaxis: Contraindicated pending surgery IV fluid: Normal saline 100 cc/hour Diet: NPO Code status: Full code patient designates Alma Iniguez to be his surrogate decision maker. The patient is admitted to the hospital due to the severity of his injuries and complicating factors increasing his risk for complications and adverse events as well as the complexity of the plan of care. The patient is admitted as an inpatient with expected length of stay to be greater than 2 midnights based on surgical evaluation and intervention. COVID-19 COVID-19 status: Negative Result date/Date tested (Pos, Neg/Pending): 06/18/20 Scores GCS [place] coma scale eye opening: Spontaneous [place] coma scale verbal response: Orientated [place] coma scale motor response: Obey commands [place] coma scale total score: 15 SOFA PaO2/FIO2: < 400 mmHg Platelets: >= 150 Bilirubin: < 1.2 mg/dL Hypotension: MAP >= 70 mmHg [place] Coma Scale: 15 Renal: < 1.2 mg/dL SOFA Score: 1
[2020-06-18 06:53] LABS: Culture Indicated Urine Cult Not Indicated; RBC Urine 1-5/HPF (0-5/HPF)
[2020-06-18 06:55] LABS: Phosphorous 3.9 mg/dL (2.3-3.7)
[2020-06-18] MEDS: HYDROMORPHONE 1 MG INJ IV (09:27)
[2020-06-18] MEDS: SODIUM CHLORIDE 0.9% 1,000 ML 100 ML IV (09:28)
--- NOTE | 2020-06-18 10:41 | PC.NURSE ---
Pt to room 212 via stretcher - transferred to bed by slider sheet. Pt awake, alert, and oriented x 3, conversive and calm. Pt states he has pain to his right hip 5/10. Performed skin check, placed new Allevyn dressings to sacral wound, measured wound and took pictures. Dr. Bella here to perform sacral debridement. Eschar removed, wound cleaned, xeroform and Allevyn Gentle border dressings placed over wounds. Heel booties applied to protect heels from further breakdown. Waffle cushion placed under patients bottom to prevent further breakdown. Legs stacked with pillow between to decrease hip movements. Pt oriented to room, call light, tv controls, and bed controls. Pt is NPO for surgery tonight to repair hip fx. Seizure pads placed on rails per CIWA protocol 3+ drinks daily. Pt is an active daily smoker-will speak to MD about nicotine patch. Pt is now sleeping soundly. Bed alarm on for safety. Call light in reach.
--- NOTE | 2020-06-18 10:56 | P.CONS_ITS ---
History of Present Illness Consult details Chief complaint: Right hip pain Reason for consult: Stage I and stage II sacral gluteal decubitus pressure ulcers Narrative: 65-year-old male with past medical history of alcoholism, longstanding smoking, hypertension, prior left hip fracture, whom presented to our ER via EMS with right hip pain. Patient reported that he tripped and fell 10 days ago and was unable to bear weight since, due to the pain, therefore became mostly wheelchair bound to get around. What precipitated this ER visit was because he slid out of his wheelchair until found by his friends who checked on him, who then called EMS. Patient reported no loss of consciousness, denied head or neck pain. Denied fevers or chills, headache or dizziness, chest pain or palpitations, no shortness of breath. He has a chronic cough, no change. Denied abdominal pain, nausea, vomiting, diarrhea, or constipation. He still drinks 3 beers daily and smokes 1/2 pack per day cigarettes. X-ray of the pelvis and hip finds a right comminuted intertrochanteric fracture. CT of the head finds no acute intracranial processes, small-vessel ischemic changes. CT the cervical spine finds no bony abnormalities. CT of the chest finds no acute intrathoracic process. His laboratory showed no leukocytosis, normal procalcitonin, no anemia, no thrombocytopenia, normal coagulation profile, INR 1.1, overall normal liver function tests except for low albumin, with severe hyponatremia Na 122 with hypochloremia. Normal cardiac profile. Alcohol level not elevated. General surgery was asked to evaluate his bilateral gluteal riki sacral pressure decubitus ulcers. He denies having significant pain from these ulcers, he mostly has his right hip fracture pain. Meds Home Medications and Allergies Home Medications Medication Instructions Recorded Confirmed Type vitamin B complex-folic acid 0.4 mg PO QDAY #120 tab 06/10/16 Rx [Complex B-100] acetaminophen 0 mg PO Q4HP PRN #30 09/07/17 Rx chlordiazepoxide HCl 50 mg PO QID #30 cap 09/07/17 Rx levofloxacin [Levaquin] 500 mg PO 1400 #5 tab 09/07/17 Rx nicotine 7 mg TOPICAL QDAY #30 patch 09/07/17 Rx Allergies Allergy/AdvReac Type Severity Reaction Status Date / Time No Known Drug Allergies Allergy Verified 06/18/20 06:57 Review of Systems Review of Systems ROS: Yes All systems reviewed with the patient and are negative except as otherwise documented Exam Vital Signs (past 8 hours): - 06/18/20 03:33 06/18/20 03:34 06/18/20 03:46 Temperature 102 F H Pulse Rate 118 H 120 H 118 H Respiratory Rate 20 Blood Pressure 116/69 116/69 122/74 Blood Pressure [Right Arm] Pulse Oximetry 96 97 98 06/18/20 04:00 06/18/20 04:30 06/18/20 04:32 Temperature Pulse Rate 121 H 119 H 118 H Respiratory Rate 23 Blood Pressure 141/86 H Blood Pressure [Right Arm] Pulse Oximetry 97 98 98 06/18/20 05:00 06/18/20 05:30 06/18/20 06:00 Temperature Pulse Rate 118 H 111 H 111 H Respiratory Rate 34 H 21 22 Blood Pressure 148/86 H Blood Pressure [Right Arm] Pulse Oximetry 97 98 97 06/18/20 06:30 06/18/20 06:40 06/18/20 07:00 Temperature Pulse Rate 109 H 107 H 109 H Respiratory Rate 23 23 18 Blood Pressure 122/85 126/68 Blood Pressure [Right Arm] Pulse Oximetry 100 99 99 06/18/20 08:00 06/18/20 08:55 Temperature 98.2 F Pulse Rate 104 H 107 H Respiratory Rate 16 13 Blood Pressure 108/59 L Blood Pressure [Right Arm] 120/76 Pulse Oximetry 97 97 Oxygen Delivery Method Room Air Oxygen Flow Rate 0 Narrative Exam Narrative: GENERAL APPEARANCE: Thin unkempt male who appears older than his stated, in mild distress when I saw him this morning, not toxic appearing otherwise HEENT: Atraumatic, PERRLA, sclera is anicteric, EOMs intact NECK: neck supple, nontender to palpation, no mass, trachea midline HEART: regular rate rhythml, no extremity edema LUNGS: Clear to auscultation bilaterally, no wheezing, no rales ABDOMEN: no distention, soft, nontender throughout, no palpable masses or appreciable organomegaly EXTREMITIES: R hip pain with movement or palpation, grossly intact motor sensory NEUROLOGIC: no focal neurologic deficits, cranial nerves II-XII grossly intact SKIN: Someone is superficial bruising over the back of both knees GLUTEAL ULCERS: Patient has stage I superficial decubitus ulcer over on the left gluteal fold measuring approximately 6 cm diameter, no debridement needed After superficial debridement of the overlying black leathery eschar over on the right gluteal fold, he has stage II decubitus ulcer to the level of the subcutaneous fat which measured approximately also 6 cm in diameter with the less than 0.5 cm depth Both of these pressure ulcers are not grossly infected, no associated cellulitis, no evidence of necrotizing soft tissue infection Objective Labs Result Diagrams: 06/18/20 04:06 06/18/20 04:06 Labs: Laboratory Results - last 24 hr 06/18/20 06/18/20 06/18/20 04:06 04:06 04:06 WBC 7.5 RBC 3.78 L Hgb 12.6 L Hct 36.3 L MCV 95.9 MCH 33.4 MCHC 34.8 RDW 13.9 Plt Count 182 Neut % (Auto) 83.6 H Lymph % (Auto) 7.2 L [place] % (Auto) 8.6 Eos % (Auto) 0.2 L Baso % (Auto) 0.4 Neut # (Auto) 6300 Lymph # (Auto) 500 L [place] # (Auto) 700 Eos # (Auto) 0 Baso # (Auto) 0 PT INR D-Dimer 2001 H Sodium Potassium Chloride Carbon Dioxide BUN Creatinine Estimated GFR BUN/Creatinine Ratio Glucose Lactate Calcium Phosphorus Ferritin 263 Total Bilirubin AST ALT Alkaline Phosphatase Lactate Dehydrogenase 579 Total Creatine Kinase CK-MB (CK-2) CK-MB (CK-2) Rel Index Troponin I C-Reactive Protein 15.2 H Total Protein Albumin Globulin Albumin/Globulin Ratio Procalcitonin Urine Color Urine Appearance Urine pH Ur Specific [place] Urine Protein Urine Glucose (UA) Urine Ketones Urine Occult Blood Urine Nitrate Urine Bilirubin Urine Urobilinogen Ur Leukocyte Esterase Urine RBC Urine WBC Urine Bacteria Ur Culture Indicated? Ethyl Alcohol COVID-19 PCR 06/18/20 06/18/20 06/18/20 04:06 04:06 04:06 WBC RBC Hgb Hct MCV MCH MCHC RDW Plt Count Neut % (Auto) Lymph % (Auto) [place] % (Auto) Eos % (Auto) Baso % (Auto) Neut # (Auto) Lymph # (Auto) [place] # (Auto) Eos # (Auto) Baso # (Auto) PT 12.7 INR 1.1 D-Dimer Sodium 122 L Potassium 4.3 Chloride 88 L Carbon Dioxide 25 BUN 9 Creatinine 0.59 L Estimated GFR > 60.0 BUN/Creatinine Ratio 15.3 Glucose 92 Lactate Calcium 8.7 Phosphorus Ferritin Total Bilirubin 0.7 AST 45 ALT 33 Alkaline Phosphatase 81 Lactate Dehydrogenase Total Creatine Kinase CK-MB (CK-2) CK-MB (CK-2) Rel Index Troponin I C-Reactive Protein Total Protein 6.1 L Albumin 3.1 L Globulin 3.0 Albumin/Globulin Ratio 1.0 Procalcitonin 0.17 Urine Color Urine Appearance Urine pH Ur Specific [place] Urine Protein Urine Glucose (UA) Urine Ketones Urine Occult Blood Urine Nitrate Urine Bilirubin Urine Urobilinogen Ur Leukocyte Esterase Urine RBC Urine WBC Urine Bacteria Ur Culture Indicated? Ethyl Alcohol COVID- PCR 06/18/20 06/18/20 06/18/20 04:06 04:06 04:06 WBC RBC Hgb Hct MCV MCH MCHC RDW Plt Count Neut % (Auto) Lymph % (Auto) [place] % (Auto) Eos % (Auto) Baso % (Auto) Neut # (Auto) Lymph # (Auto) [place] # (Auto) Eos # (Auto) Baso # (Auto) PT INR D-Dimer Sodium Potassium Chloride Carbon Dioxide BUN Creatinine Estimated GFR BUN/Creatinine Ratio Glucose Lactate 1.5 Calcium Phosphorus Ferritin Total Bilirubin AST ALT Alkaline Phosphatase Lactate Dehydrogenase Total Creatine Kinase 385 H CK-MB (CK-2) 6.46 H CK-MB (CK-2) Rel Index 1.7 Troponin I < 0.012 C-Reactive Protein Total Protein Albumin Globulin Albumin/Globulin Ratio Procalcitonin Urine Color Urine Appearance Urine pH Ur Specific [place] Urine Protein Urine Glucose (UA) Urine Ketones Urine Occult Blood Urine Nitrate Urine Bilirubin Urine Urobilinogen Ur Leukocyte Esterase Urine RBC Urine WBC Urine Bacteria Ur Culture Indicated? Ethyl Alcohol < 10 COVID-19 PCR 06/18/20 06/18/20 06/18/20 04:06 04:06 05:15 WBC RBC Hgb Hct MCV MCH MCHC RDW Plt Count Neut % (Auto) Lymph % (Auto) [place] % (Auto) Eos % (Auto) Baso % (Auto) Neut # (Auto) Lymph # (Auto) [place] # (Auto) Eos # (Auto) Baso # (Auto) PT INR D-Dimer Sodium Potassium Chloride Carbon Dioxide BUN Creatinine Estimated GFR BUN/Creatinine Ratio Glucose Lactate Calcium Phosphorus 3.9 H Ferritin Total Bilirubin AST ALT Alkaline Phosphatase Lactate Dehydrogenase Total Creatine Kinase CK-MB (CK-2) CK-MB (CK-2) Rel Index Troponin I C-Reactive Protein Total Protein Albumin Globulin Albumin/Globulin Ratio Procalcitonin Urine Color Yellow Urine Appearance Clear Urine pH 6.0 Ur Specific [place] 1.015 Urine Protein Negative Urine Glucose (UA) Negative Urine Ketones Negative Urine Occult Blood 1+ H Urine Nitrate Negative Urine Bilirubin Negative Urine Urobilinogen 0.2 Ur Leukocyte Esterase Negative Urine RBC 1-5/hpf Urine WBC None seen Urine Bacteria None seen Ur Culture Indicated? Cult not indicated Ethyl Alcohol COVID-19 PCR Negative Assessment & Plan Assessment & Plan narrative: Patient with has stage I superficial decubitus ulcer over on the left gluteal fold not needing debridement, and stage II decubi tus ulcer to the level of the subcutaneous fat which was superficially debrided at the bedside Both of these pressure ulcers are not grossly infected, no associated cellulitis, no evidence of necrotizing soft tissue infection, therefore antibiotic therapy not recommended or indicated Recommend local wound care with Santyl chemical debridement daily dressing changes and taking pressure off these areas to prevent the ulcers from becoming worse
[2020-06-18] MEDS: PIPERACILLIN-TAZO 3.375 GM/50 ML FROZ.PIGGY IV ×2 (11:13→16:49)
[2020-06-18] MEDS: NICOTINE 7 MG PATCH TOP (12:30)
[2020-06-18] MEDS: SODIUM CHLORIDE 0.9% 1,000 ML 75 ML IV (13:00)
[2020-06-18 13:28] LABS: BUN Creatinine Ratio 18.2 (6-22); Blood Urea Nitrogen 8 mg/dL (9-20); Calcium 8.2 mg/dL (8.4-10.2); Carbon Dioxide 26 mmol/L (22-32); Chloride 93 mmol/L (98-107); Estimated Glomerular Filt Rate > 60.0 mL/min (>60); Glucose 100 mg/dL (80-110); HEMOLYSIS < 15 (0-50); Magnesium 1.7 mg/dL (1.6-2.3); Potassium 3.8 mmol/L (3.4-5.1); Sodium 124 mmol/L (137-145)
--- NOTE | 2020-06-18 17:47 | PC.NURSE ---
discharge planning Gm Means called this RN to express concerns for pt's DC. Gm states he is pt's social work specialist and himself and some others check on Gm frequently but state pt seems to be having difficulty with self care and has had frequent falls. Gm states it seems pt's only caloric intake is beer and he is concerned he will decline, have further falls if continues to live by himself. This RN relayed concerns to NABILA Winn.
--- NOTE | 2020-06-18 17:59 | PM.HP.1 ---
History of Present Illness History of Present Illness Date Patient Seen: 06/18/20 Time Patient Seen: 18:00 Chief complaint: Right hip pain Narrative: Patient is a 65-year-old male who is a current smoker with a past medical history of hypertension and alcoholism who presents to the ER via EMS with right hip pain. The patient reports that he tripped and fell 10 days ago and had right hip pain and was unable to bear weight. He remained at home and was getting around in his wheelchair. He slid out of his wheelchair onto the floor for approximately 5 hours yesterday until found by his friends who check on him regularly and summon EMS. The patient reports no loss of consciousness, head or neck pain following his fall. The patient denies constitutional symptoms of fevers or chills has had no headaches or dizziness. He endorses continuing to drink 3 beers daily and a pack of cigarettes lasts him approximately 2 days. He denies complaints of chest pain or palpitations. He reports no shortness of breath and has a chronic cough that is productive for milky colored sputum. Reports no complaints of abdominal pain, describes as stomach is tight, and denies nausea vomiting, diarrhea or constipation. The patient indicates that prior to his fall he was ambulatory in used no assistive devices. He has a wheelchair that he is currently using having had a previous left hip fracture treated with CMN. Patient History Medical History Alcohol abuse History of pneumothorax Hypertension Surgical History History of hip surgery History of knee surgery Family & Social History Family History Brother Cancer Mother Alzheimer's dementia Social History: household members none Prior Living Arrangements Apartment/Condo Safety & Behavioral: Feels Safe in Current Yes Environment Been Physically Hurt or No Threatened By a Person Suicidal Ideation Description None Suicide Plan Description No Plan Tobacco & Substance use: Tobacco type cigarettes Smoking Status Current every day smoker alcohol intake current alcohol intake frequency 3 or more drinks per day Substance Use Type does not use Meds Home Medications and Allergies Home Medications Medication Instructions Recorded Confirmed Type No Known Home Medications 06/18/20 06/18/20 History Allergies Allergy/AdvReac Type Severity Reaction Status Date / Time No Known Drug Allergies Allergy Verified 06/18/20 17:51 Exam Vital Signs (past 8 hours): - 06/18/20 13:15 06/18/20 15:51 Temperature 98.2 F 97.2 F L Pulse Rate 108 H 96 H Respiratory Rate 14 18 Blood Pressure 100/61 116/64 Pulse Oximetry 94 93 Oxygen Delivery Method Room Air Oxygen Flow Rate 0 Narrative Exam Narrative: Neurovascularly intact to the right lower extremity. No skin breaks or about the right hip. Right lower extremity is shortened. He has large ecchymosis over the posterolateral and the medial aspect of the thigh. Of note he does have a large decubitus ulcer over the sacrum. This was debrided at bedside by surgical team. Const General: cooperative, comfortable and disheveled Objective Labs Result Diagrams: 06/18/20 04:06 06/18/20 13:06 Labs: Laboratory Results - last 24 hr 06/18/20 06/18/20 06/18/20 04:06 04:06 04:06 WBC 7.5 RBC 3.78 L Hgb 12.6 L Hct 36.3 L MCV 95.9 MCH 33.4 MCHC 34.8 RDW 13.9 Plt Count 182 Neut % (Auto) 83.6 H Lymph % (Auto) 7.2 L [place] % (Auto) 8.6 Eos % (Auto) 0.2 L Baso % (Auto) 0.4 Neut # (Auto) 6300 Lymph # (Auto) 500 L [place] # (Auto) 700 Eos # (Auto) 0 Baso # (Auto) 0 PT INR D-Dimer 2001 H Sodium Potassium Chloride Carbon Dioxide BUN Creatinine Estimated GFR BUN/Creatinine Ratio Glucose Lactate Calcium Phosphorus Magnesium Ferritin 263 Total Bilirubin AST ALT Alkaline Phosphatase Lactate Dehydrogenase 579 Total Creatine Kinase CK-MB (CK-2) CK-MB (CK-2) Rel Index Troponin I C-Reactive Protein 15.2 H Total Protein Albumin Globulin Albumin/Globulin Ratio Procalcitonin Urine Color Urine Appearance Urine pH Ur Specific [place] Urine Protein Urine Glucose (UA) Urine Ketones Urine Occult Blood Urine Nitrate Urine Bilirubin Urine Urobilinogen Ur Leukocyte Esterase Urine RBC Urine WBC Urine Bacteria Ur Culture Indicated? Ethyl Alcohol COVID-19 PCR 06/18/20 06/18/20 06/18/20 04:06 04:06 04:06 WBC RBC Hgb Hct MCV MCH MCHC RDW Plt Count Neut % (Auto) Lymph % (Auto) [place] % (Auto) Eos % (Auto) Baso % (Auto) Neut # (Auto) Lymph # (Auto) [place] # (Auto) Eos # (Auto) Baso # (Auto) PT 12.7 INR 1.1 D-Dimer Sodium 122 L Potassium 4.3 Chloride 88 L Carbon Dioxide 25 BUN 9 Creatinine 0.59 L Estimated GFR > 60.0 BUN/Creatinine Ratio 15.3 Glucose 92 Lactate Calcium 8.7 Phosphorus Magnesium Ferritin Total Bilirubin 0.7 AST 45 ALT 33 Alkaline Phosphatase 81 Lactate Dehydrogenase Total Creatine Kinase CK-MB (CK-2) CK-MB (CK-2) Rel Index Troponin I C-Reactive Protein Total Protein 6.1 L Albumin 3.1 L Globulin 3.0 Albumin/Globulin Ratio 1.0 Procalcitonin 0.17 Urine Color Urine Appearance Urine pH Ur Specific [place] Urine Protein Urine Glucose (UA) Urine Ketones Urine Occult Blood Urine Nitrate Urine Bilirubin Urine Urobilinogen Ur Leukocyte Esterase Urine RBC Urine WBC Urine Bacteria Ur Culture Indicated? Ethyl Alcohol COVID- PCR 06/18/20 06/18/20 06/18/20 04:06 04:06 04:06 WBC RBC Hgb Hct MCV MCH MCHC RDW Plt Count Neut % (Auto) Lymph % (Auto) [place] % (Auto) Eos % (Auto) Baso % (Auto) Neut # (Auto) Lymph # (Auto) [place] # (Auto) Eos # (Auto) Baso # (Auto) PT INR D-Dimer Sodium Potassium Chloride Carbon Dioxide BUN Creatinine Estimated GFR BUN/Creatinine Ratio Glucose Lactate 1.5 Calcium Phosphorus Magnesium Ferritin Total Bilirubin AST ALT Alkaline Phosphatase Lactate Dehydrogenase Total Creatine Kinase 385 H CK-MB (CK-2) 6.46 H CK-MB (CK-2) Rel Index 1.7 Troponin I < 0.012 C-Reactive Protein Total Protein Albumin Globulin Albumin/Globulin Ratio Procalcitonin Urine Color Urine Appearance Urine pH Ur Specific [place] Urine Protein Urine Glucose (UA) Urine Ketones Urine Occult Blood Urine Nitrate Urine Bilirubin Urine Urobilinogen Ur Leukocyte Esterase Urine RBC Urine WBC Urine Bacteria Ur Culture Indicated? Ethyl Alcohol < 10 COVID-19 PCR 06/18/20 06/18/20 06/18/20 04:06 04:06 05:15 WBC RBC Hgb Hct MCV MCH MCHC RDW Plt Count Neut % (Auto) Lymph % (Auto) [place] % (Auto) Eos % (Auto) Baso % (Auto) Neut # (Auto) Lymph # (Auto) [place] # (Auto) Eos # (Auto) Baso # (Auto) PT INR D-Dimer Sodium Potassium Chloride Carbon Dioxide BUN Creatinine Estimated GFR BUN/Creatinine Ratio Glucose Lactate Calcium Phosphorus 3.9 H Magnesium Ferritin Total Bilirubin AST ALT Alkaline Phosphatase Lactate Dehydrogenase Total Creatine Kinase CK-MB (CK-2) CK-MB (CK-2) Rel Index Troponin I C-Reactive Protein Total Protein Albumin Globulin Albumin/Globulin Ratio Procalcitonin Urine Color Yellow Urine Appearance Clear Urine pH 6.0 Ur Specific [place] 1.015 Urine Protein Negative Urine Glucose (UA) Negative Urine Ketones Negative Urine Occult Blood 1+ H Urine Nitrate Negative Urine Bilirubin Negative Urine Urobilinogen 0.2 Ur Leukocyte Esterase Negative Urine RBC 1-5/hpf Urine WBC None seen Urine Bacteria None seen Ur Culture Indicated? Cult not indicated Ethyl Alcohol COVID-19 PCR Negative 06/18/20 06/18/20 06/18/20 11:54 13:06 13:06 WBC RBC Hgb Hct MCV MCH MCHC RDW Plt Count Neut % (Auto) Lymph % (Auto) [place] % (Auto) Eos % (Auto) Baso % (Auto) Neut # (Auto) Lymph # (Auto) [place] # (Auto) Eos # (Auto) Baso # (Auto) PT INR D-Dimer Sodium 124 L Potassium 3.8 Chloride 93 L Carbon Dioxide 26 BUN 8 L Creatinine 0.44 L Estimated GFR > 60.0 BUN/Creatinine Ratio 18.2 Glucose 100 Lactate Calcium 8.2 L Phosphorus Magnesium 2.0 1.7 Ferritin Total Bilirubin AST ALT Alkaline Phosphatase Lactate Dehydrogenase Total Creatine Kinase CK-MB (CK-2) CK-MB (CK-2) Rel Index Troponin I C-Reactive Protein Total Protein Albumin Globulin Albumin/Globulin Ratio Procalcitonin Urine Color Urine Appearance Urine pH Ur Specific [place] Urine Protein Urine Glucose (UA) Urine Ketones Urine Occult Blood Urine Nitrate Urine Bilirubin Urine Urobilinogen Ur Leukocyte Esterase Urine RBC Urine WBC Urine Bacteria Ur Culture Indicated? Ethyl Alcohol COVID-19 PCR Assessment & Plan Assessment & Plan narrative: Patient is a 65-year-old male who had a ground level fall approximately 11 days ago onto his right hip. He was unable to ambulate afterward. He did not contact emergency medical services. He had a wheelchair from her prior left hip fracture and he has been getting around in a wheelchair since the time of this fall. Yesterday he slid out of his wheelchair onto the ground was unable to return to his chair. He was checked on by his friends who called EMS. He is brought on hospital ordered x-ray diagnosed a right displaced intertrochanteric femur fracture. In addition a large decubitus sacral ulcer was found and this was debrided at bedside by the surgical team. Patient is at increased risk of infection due to this decubitus ulcer. Although I think the benefits outweigh the risks as continued immobilization will likely to cardiopulmonary and vascular complications. Plan is for right cephalomedullary nail for a displaced intertrochanteric femur fracture. - NPO - OCTOR for right CMN - NWB RLE COVID-19 COVID-19 status: Negative Result date/Date tested (Pos, Neg/Pending): 06/18/20 Time Spent With Patient Time with patient: 15-24 minutes Quality VTE Deep Vein Thrombosis/Pulmonary Embolism Present on Admission: No
--- NOTE | 2020-06-18 18:04 | PM.PREOP ---
Pre-operative Note COVID-19 COVID-19 status: Negative Result date/Date tested (Pos, Neg/Pending): 06/18/20 Interval Note History & Physical reviewed/Exam performed by Physician: Yes Changes to H&P: No H&P completed within 30 days and has changed as indicated here:: Plan for right cephalomedullary nail for a displaced intertrochanteric femur fracture. Risks and benefits of surgery were discussed the patient including the risk of infection, malunion, nonunion, need for future surgeries, damage to local structures such as vessels and nerves, iatrogenic fracture, DVT, PE, etc.. Patient demonstrates understanding of the risks and benefits and wishes to proceed with a right hip cephalomedullary nail.
[2020-06-18] MEDS: LACTATED RINGERS 1,000 ML 42 ML IV ×2 (18:21→20:13)
[2020-06-18] MEDS: ALBUTEROL/IPRATROPIUM 3 ML AMPUL INH (18:57)
--- NOTE | 2020-06-18 20:01 | SUR.OPER ---
Head on pillow. Supine on fracture table with operative leg secured in traction. Other leg secured in padded stirrup. Arms across chest, secured with sheet.
--- NOTE | 2020-06-18 20:55 | P.OP_ITS ---
Operative Date/Time/Diagnoses Date of procedure: 06/18/20 Time of procedure: 20:55 Pre-op diagnosis: R IT hip fracture Post-op diagnosis: same Procedure & Clinicians Procedure: Right long CMN Same procedure as scheduled: Yes Indications: Dispalced IT hip fracture with long lesser trochanteric fracture segment Surgeon: Carlitos Betancourt Click Yes if Unassisted: Yes Anesthesia Type: General Operative Notes Findings: Dispalced IT hip fracture Closure Type: primary Specimen(s): none sent Prosthetic devices, grafts, tissues, transplants, or devices: Isabel and nephew intertan nail 38 cm x 11.5 mm 90 mm head screw, 85 mm compression screw Distal interlocking bolt 37.5 mm Estimated Blood Loss (mL): 100 Procedure in detail: Patient was met in the preoperative holding area where the site and side of surgery were marked by . Informed consent was reviewed including the risks and benefits of surgery including the risks of infection, malunion, nonunion, need for future surgeries, DVT, PE, iatrogenic fracture, damage to local structures such as vessels and nerves, , etc.. Patient demonstrates understanding of the risks and benefits of surgery and wishes to proceed with a right hip cephalomedullary nail. Patient is brought back in the operating room where he was induced under general anesthesia on gureastman. He was then transferred onto the Oakwood table and the right foot was placed in a well-padded Oakwood table boot and the left hip was placed in a well leg villatoro. This point fluoroscopy was brought in for reduction of his intertrochanteric hip fracture. Once the reduction was able to be achieved by straight traction and fine adjustment in varus valgus. Once were satisfied with initial reduction as well as our tangential views the right hip was then prepped and draped in normal sterile fashion. A 3 cm long incision was made proximal to the greater trochanter in line with the long axis the femur. Skin incision was made with a 10. Blade followed by Collins scissors to split the fascia. A threaded tip wire was then placed at the tip of the greater trochanter and verified on AP and lateral views. This was then driven into the bone. The opening Reamer was then placed over this guidewire down the level of the lesser troch. The guidewire and the Reamer were then removed and a ball-tipped guidewire was placed down to the level of the physeal scar of the femur. X-ray was brought down to the level of the knee to verify positioning. We then began reaming with a 9 mm Reamer and up sizing until we got to a 13 mm Reamer for an 11.5 mm nail. We measured off the ball- tipped guidewire for a 38 cm nail. A 30 cm x 11.5 mm nail was then passed over the ball-tipped guidewire and fluoroscopy was used to determine how deep the nail was placed for the head screw. The jig was then used to place the threaded tip guidewire and tangential views were verified that we were center center in the head on AP and lateral views. We then measured off this threaded tip guidewire for a 90 mm head screw. We then drilled for the compression screw to 85 mm of depth followed by placement of the anti rotation bar. We then drilled for the 90 mm head screw. The head screw was then placed under fluoroscopic guidance followed by placement of the 85 mm compression screw. The threaded tip guidewire was then removed as well as the proximal jig was removed. We then moved down to the knee for perfect circles for placement of interlock bolt. This was then drilled and a 37.5 mm interlock bolt was placed again verifying position on AP and lateral views. Final films were obtained. All the incisions were then copiously irrigated with normal saline. A number 0 Vicryl was then used to close the fascia at the proximal and mid thigh incision. And 2 Vicryl were then used in the subcutaneous tissue at all 3 incision sites and nora on skin. Locules cell dressings were placed on the superior 2 incisions and the distal incision had a Tegaderm placed. Complications: none Post-operative Condition: stable Disposition: PACU Plan for aftercare: WBAT RLE, 24 hours post-op abx, 6 weeks DVT prophylaxis
[2020-06-18] MEDS: HYDROMORPHONE 2 MG INJ IV (21:09)
--- NOTE | 2020-06-18 21:37 | RT ---
Went to assess per MD order pt at 2123. Pt not in room.
[2020-06-18] MEDS: OXYCODONE IR 5 MG TABLET PO (21:42)
[2020-06-18] MEDS: ACETAMINOPHEN 325 MG TABLET 650 MG PO (21:43)
[2020-06-18 22:53] LABS: Hematocrit 29.1 % (41-53)
[2020-06-18] MEDS: ASPIRIN EC 81 MG TABLET PO (23:55)
[2020-06-18] MEDS: guaiFENesin ER 600 MG TAB PO (23:55)
[2020-06-18] MEDS: SODIUM CHLORIDE 0.9% 1,000 ML 125 ML IV (23:55)
[2020-06-18] MEDS: CEFAZOLIN 2 GM/100 ML FROZ.PIGGY IV (23:56)
[2020-06-19] VITALS (7 sets, daily range): BP systolic 98–117; BP diastolic 61–81; PULSE 102–135; RESP 16–20; TEMP 36.2–37.2; O2SAT 94–100
[2020-06-19 00:10] LABS: Enterococcus species Not Detected (Not Detect); Listeria monocytogenes Not Detected (Not Detect)
[2020-06-19 00:11] LABS: Staphylococcus species Detected (Not Detect)
[2020-06-19 00:12] LABS: Acinetobacter baumannii Not Detected (Not Detect); Candida albicans Not Detected (Not Detect); Candida glabrata Not Detected (Not Detect); Candida krusei Not Detected (Not Detect); Candida parapsilosis Not Detected (Not Detect); Candida tropicalis Not Detected (Not Detect); E. coli Not Detected (Not Detect); Enterobacter cloacae complex Not Detected (Not Detect); Enterobacteriaceae species Not Detected (Not Detect); Haemophilus influenzae Not Detected (Not Detect); Methicillin-resistant gene Detected (Not Detect); Neisseria meningitidis Not Detected (Not Detect); Proteus species Not Detected (Not Detect); Pseudomonas aeruginosa Not Detected (Not Detect); Serratia marcescens Not Detected (Not Detect); Streptococcus agalactiae (Gr B Not Detected (Not Detect); Streptococcus pneumonia Not Detected (Not Detect); Streptococcus pyogenes (Gr A) Not Detected (Not Detect); Streptococcus species Not Detected (Not Detect)
[2020-06-19] MEDS: VANCOMYCIN 1,000 MG/200 ML PIGGYBACK 200 MG IV ×2 (02:09→09:05)
[2020-06-19] MEDS: HYDROMORPHONE 0.5 MG INJ IV (05:13)
[2020-06-19 05:28] LABS: Add Manual Diff / Slide Review NO; Basophils Absolute Auto 0 /uL (0-100); Basophils Percent Auto 0.4 % (0-2); Eosinophils Absolute Auto 100 /uL (0-450); Eosinophils Percent Auto 1.4 % (2-4); Hematocrit 26.3 % (41-53); Lymphocytes Absolute Auto 600 /uL (1100-4500); Lymphocytes Percent Auto 10.2 % (25-40); Mean Corpuscular HGB Conc 34.2 % (30-36); Mean Corpuscular Hemoglobin 33.1 PG (26-34); Mean Corpuscular Volume 96.7 fL (80-100); Monocytes Absolute Auto 200 /uL (0-900); Monocytes Percent Auto 4.4 % (3-14); Neutrophils Absolute Auto 4700 /uL (1500-7000); Neutrophils Percent Auto 83.6 % (50-75); Platelet Count 128 X10^3/uL (150-400); Red Blood Cell Count 2.72 X10^6/uL (4.5-5.9); Red Cell Distribution Width 13.8 % (11.6-14.8); White Blood Cell Count 5.6 X10^3/uL (4.5-11.0)
[2020-06-19 05:36] LABS: BUN Creatinine Ratio 13.2 (6-22); Blood Urea Nitrogen 5 mg/dL (9-20); Calcium 7.7 mg/dL (8.4-10.2); Carbon Dioxide 29 mmol/L (22-32); Chloride 93 mmol/L (98-107); Estimated Glomerular Filt Rate > 60.0 mL/min (>60); Glucose 139 mg/dL (80-110); HEMOLYSIS < 15 (0-50); Magnesium 1.6 mg/dL (1.6-2.3); Potassium 3.8 mmol/L (3.4-5.1); Sodium 123 mmol/L (137-145)
[2020-06-19] MEDS: CEFAZOLIN 2 GM/100 ML FROZ.PIGGY IV (06:42)
[2020-06-19 08:16] LABS: Procalcitonin 0.13 ng/mL (<0.5)
[2020-06-19] MEDS: NICOTINE 7 MG PATCH TOP (09:05)
[2020-06-19] MEDS: CALCIUM CARB/VIT D3 500/200 TABLET 1 EACH PO ×2 (09:05→16:52)
[2020-06-19] MEDS: FOLIC ACID 1 MG TABLET PO (09:05)
[2020-06-19] MEDS: guaiFENesin ER 600 MG TAB PO (09:05)
[2020-06-19] MEDS: ASPIRIN EC 81 MG TABLET PO ×2 (09:06→19:58)
[2020-06-19] MEDS: MULTIVITAMIN 1 TABLET 1 TAB PO (09:06)
[2020-06-19] MEDS: THIAMINE 100 MG TABLET PO (09:06)
[2020-06-19] MEDS: OXYCODONE IR 5 MG TABLET PO ×2 (09:09→12:29)
--- NOTE | 2020-06-19 09:17 | P.PN_ITS ---
Subjective Subjective Date Patient Seen: 06/19/20 Time Patient Seen: 09:17 Interval history: POD #1 s/p IM nail of dispalced IT hip fracture with long lesser trochanteric fracture segment with Dr. Betancourt. Patient doing well this morning. No complaints. Exam Vital Signs (past 8 hours): - 06/19/20 03:00 06/19/20 07:57 Temperature 97.2 F L 98.8 F Pulse Rate 102 H 109 H Respiratory Rate 16 18 Blood Pressure 112/69 110/68 Pulse Oximetry 100 100 Oxygen Delivery Method Nasal Cannula Oxygen Flow Rate 0 Narrative Exam Narrative: Patient is sitting up in bed no acute distress. Alert and or iented x3. Calves are soft, compressible, nontender bilaterally. Pulses are symmetrical. He is able to actively dorsiflex and plantar flex. Dressing on right hip is CDI. Objective Labs Result Diagrams: 06/19/20 05:00 06/19/20 05:00 Labs: Laboratory Results - last 24 hr 06/18/20 06/18/20 06/18/20 04:06 11:54 13:06 WBC RBC Hgb Hct MCV MCH MCHC RDW Plt Count Neut % (Auto) Lymph % (Auto) [place] % (Auto) Eos % (Auto) Baso % (Auto) Neut # (Auto) Lymph # (Auto) [place] # (Auto) Eos # (Auto) Baso # (Auto) Sodium 124 L Potassium 3.8 Chloride 93 L Carbon Dioxide 26 BUN 8 L Creatinine 0.44 L Estimated GFR > 60.0 BUN/Creatinine Ratio 18.2 Glucose 100 Hemoglobin A1c Calcium 8.2 L Magnesium 2.0 Procalcitonin A. baumannii (PCR) Not detected Pretty albicans (PCR) Not detected C. glabrata (PCR) Not detected C. krusei (PCR) Not detected C. parapsilosis (PCR) Not detected C. tropicalis (PCR) Not detected Enterobacteriac sp PCR Not detected E. cloacae complex PCR Not detected Enterococcus sp PCR Not detected E. coli (PCR) Not detected H. influenzae (PCR) Not detected Klebsiella oxytoca PCR Not detected Klebsiella pneumoniae Not detected List. monocytogenes PCR Not detected N. meningitidis (PCR) Not detected Proteus species (PCR) Not detected Serratia marcescens PCR Not detected Staphylococcus sp PCR Detected H Staph aureus (PCR) Not detected mecA-Methicil Res Gene Detected H Streptococcus sp PCR Not detected Group A Strep (PCR) Not detected Strep agalactiae (PCR) Not detected Strep pneumoniae (PCR) Not detected P. aeruginosa (PCR) Not detected Fabiola/B-Vanco Res Genes Not Reportable KPC-Carbap Res Gene PCR Not Reportable 06/18/20 06/18/20 06/19/20 13:06 22:35 05:00 WBC RBC Hgb 10.0 L Hct 29.1 L MCV MCH MCHC RDW Plt Count Neut % (Auto) Lymph % (Auto) [place] % (Auto) Eos % (Auto) Baso % (Auto) Neut # (Auto) Lymph # (Auto) [place] # (Auto) Eos # (Auto) Baso # (Auto) Sodium 123 L Potassium 3.8 Chloride 93 L Carbon Dioxide 29 BUN 5 L Creatinine 0.38 L Estimated GFR > 60.0 BUN/Creatinine Ratio 13.2 Glucose 139 H Hemoglobin A1c Calcium 7.7 L Magnesium 1.7 1.6 Procalcitonin A. baumannii (PCR) Pretty albicans (PCR) C. glabrata (PCR) C. krusei (PCR) C. parapsilosis (PCR) C. tropicalis (PCR) Enterobacteriac sp PCR E. cloacae complex PCR Enterococcus sp PCR E. coli (PCR) H. influenzae (PCR) Klebsiella oxytoca PCR Klebsiella pneumoniae List. monocytogenes PCR N. meningitidis (PCR) Proteus species (PCR) Serratia marcescens PCR Staphylococcus sp PCR Staph aureus (PCR) mecA-Methicil Res Gene Streptococcus sp PCR Group A Strep (PCR) Strep agalactiae (PCR) Strep pneumoniae (PCR) P. aeruginosa (PCR) Fabiola/B-Vanco Res Genes KPC-Carbap Res Gene PCR 06/19/20 06/19/20 06/19/20 05:00 07:47 07:47 WBC 5.6 RBC 2.72 L Hgb 9.0 L Hct 26.3 L MCV 96.7 MCH 33.1 MCHC 34.2 RDW 13.8 Plt Count 128 L Neut % (Auto) 83.6 H Lymph % (Auto) 10.2 L [place] % (Auto) 4.4 Eos % (Auto) 1.4 L Baso % (Auto) 0.4 Neut # (Auto) 4700 Lymph # (Auto) 600 L [place] # (Auto) 200 Eos # (Auto) 100 Baso # (Auto) 0 Sodium Potassium Chloride Carbon Dioxide BUN Creatinine Estimated GFR BUN/Creatinine Ratio Glucose Hemoglobin A1c 5.0 Calcium Magnesium Procalcitonin 0.13 A. baumannii (PCR) Pretty albicans (PCR) C. glabrata (PCR) C. krusei (PCR) C. parapsilosis (PCR) C. tropicalis (PCR) Enterobacteriac sp PCR E. cloacae complex PCR Enterococcus sp PCR E. coli (PCR) H. influenzae (PCR) Klebsiella oxytoca PCR Klebsiella pneumoniae List. monocytogenes PCR N. meningitidis (PCR) Proteus species (PCR) Serratia marcescens PCR Staphylococcus sp PCR Staph aureus (PCR) mecA-Methicil Res Gene Streptococcus sp PCR Group A Strep (PCR) Strep agalactiae (PCR) Strep pneumoniae (PCR) P. aeruginosa (PCR) Fabiola/B-Vanco Res Genes KPC-Carbap Res Gene PCR PFSH Medical History Alcohol abuse History of pneumothorax Hypertension Surgical History History of hip surgery History of knee surgery Family History Brother Cancer Mother Alzheimer's dementia Social History household members: none Smoking Status: Current every day smoker alcohol intake: current Assessment & Plan Post-op Postoperative Procedures: Procedures Operation Date: 06/18/20 17:00 Actual Procedures Side Surgeon p Intramedullary Nailing Femur Right Carlitos Betancourt MD Patient will continue to mobilize with physical therapy. Will be WBAT RLE. Plan for 6 weeks DVT prophylaxis. Hospitalist is managing patient's multiple comorbidities, and coordinating discharge. Quality VTE Deep Vein Thrombosis/Pulmonary Embolism Present on Admission: No
--- NOTE | 2020-06-19 09:34 | DI.ECHO.S_ITS ---
[facility]---------+ [facility] +---------+ : : [address] [place] : : : : [id number] : : : : Phone: [phone]+ Echocardiogram Report + + :Name: LUZMA FLETCHER Study Date: 06/19/2020 Height: 66 in : :[facility] Weight: 127 lb : : Gender: Male BSA: 1.6 m2 : :: 1955 Age: 65 yrs BP: 112/69 mmHg: :Reason For Study: LOWER EXTREMITY EDEMA, ETOH DEPENDENCE : :Ordering Physician: SANKET, : :CHARLIE Performed By: Ramonita Hilliard : :Referring: CHARLIE COLES : + + Interpretation Summary The left ventricle appears normal in size and systolic function without any obvious focal wall motion abnormality with an estimated ejection fraction of 65 to 70%. Diastolic function cannot be accurately assessed because of tachycardia but there is no evidence for elevated filling pressures. The right ventricle appears normal. Right ventricular systolic pressure cannot be estimated but CVP is likely around 3 mmHg. The left atrium is borderline enlarged. The cardiac valves grossly appear normal without any significant functional abnormality. The patient was in sinus tachycardia at 110 to 120 bpm. Procedure: A two-dimensional transthoracic echocardiogram with color flow and Doppler was performed. The study quality was technically difficult. There is no prior echocardiogram noted for this patient. A contrast injection of Definity was performed to improve assessment of LV function. Contrast was injected into an intravenous site in the left arm. The patient was in sinus tachycardia with heart rates between 107-122 bpm during the exam. Left Ventricle: The left ventricle appears normal in size, wall thickness, and systolic function without any focal wall motion abnormalities. The estimated left ventricular end diastolic volume is 114 ml. The ejection fraction is estimated to be 65-70%. Diastolic function could not be accurately assessed due to tachycardia. Right Ventricle: The right ventricle is normal in size and function. Atria: The left atrium is borderline dilated. Right atrial size is normal. There is no Doppler evidence for an interatrial shunt. Mitral Valve: The mitral valve is grossly normal. There is no mitral regurgitation noted. Aortic Valve: The aortic valve is grossly normal. The aortic valve is not well visualized. The aortic valve opens well. There is no aortic valve stenosis. No aortic regurgitation is present. Tricuspid Valve: The tricuspid valve is not well visualized, but is grossly normal. There is trace tricuspid regurgitation. Pulmonary artery pressures cannot be estimated because of the lack of a measurable TR jet velocity but the IVC suggests a CVP of around 3 mmHg. Pulmonic Valve: The pulmonic valve leaflets are thin and pliable; valve motion is normal. There is no pulmonic valvular regurgitation. There is no significant valvular heart disease. Great Vessels: The aortic root is normal size. The ascending aorta could not be visualized. The IVC is of normal diameter and collapses greater than 50% with a sniff. This suggests a low right atrial pressure of 3 mm Hg. Pericardium/ Pleura There is no pericardial effusion. There is no pleural effusion. MMode/2D Measurements & Calculations LVIDd: 4.4 cm LVOT diam: 2.1 cm LVIDs: 3.0 cm Ao root diam: 3.0 cm FS: 31.4 % IVSd: 0.73 cm LVPWd: 0.83 cm LV quintanilla. diameter/BSA (cm/m^2): 2.6 LV sys. diameter/BSA (cm/m^2): 1.8 LA A2 area: 21.3 cm2 RA long axis: 3.4 cm LA A4 area: 12.7 cm2 RA area: 10.2 cm2 LA length (vol): 4.0 cm RA vol: 26.4 ml LA vol: 57.3 ml RA : 16.0 ml/m2 LA vol index: 34.7 ml/m2 IVC diam: 0.87 cm RVD1 (basal): 2.8 cm TAPSE: 2.4 cm Doppler Measurements & Calculations Ao V2 max: 145.4 cm/sec LVOT Max Willy: 91.4 cm/sec Ao V2 mean: 94.2 cm/sec LV V1 max P.3 mmHg Ao max P.5 mmHg LV V1 VTI: 16.5 cm Ao mean P.3 mmHg GIRISH(I,D): 2.5 cm2 Ao V2 VTI: 22.3 cm GIRISH(V,D): 2.2 cm2 sev ratio: 0.74 GIRISH indexed to BSA (cm^2/m^2): 1.5 MV E max willy: 96.6 cm/sec PA V2 max: 69.9 cm/sec MV A max willy: 79.4 cm/sec PA V2 mean: 51.3 cm/sec MV E/A: 1.2 PA mean P.2 mmHg Med Peak E' Willy: 7.2 cm/sec PA pr(Accel): 39.6 mmHg E/E' med: 13.4 Lat Peak E' Willy: 17.5 cm/sec E/E' lat: 5.5 E/e' average: 9.5 MV dec time: 0.18 sec SV(ALONSO): 56.8 ml Reading Physician:12:52 PM
--- NOTE | 2020-06-19 10:50 | CM.DPNOTE ---
Faxed FS and clinicals to [facility]- per T[place]. Will send therapy notes when available. Alyssa Anderson CM Asst.
--- NOTE | 2020-06-19 11:26 | DIET.PN ---
Dietary Progress Note Assessment: 65y M admitted for displaced IT hip fracture found down by friend at home referred to nutrition for loss of muscle mass, etoh, and Stage 1 and 2 sacral decubitus ulcers. HT: 167.6cm WT: 58kg (-12.2% unintentional) UBW: 66kg BMI: 20.6 (low for age) Labs: Cr 0.38 L, A1c 5.0, CRP 15.2 H MNA: 7 malnourished Dion: 11 poor skin integrity (stage 1&2 ulcers) Pt lives alone in an apartment on [address]. Pt has been getting progressively weaker relying on wheelchair to move around apt. Imaging shows diffuse osteopenia c evidence of old chronic fractures in spine, pelvis. 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 Pt receives Meals on Wheels 3x/w and usually eats half of each meal. Pt used to eat breakfast cereal in the morning but cannot reach it on the top of his refrigerator. Pt sometimes eats breaded chicken mila on bread c welch. Pt UBW 145# most of adult life. Pt receives EBT benefits and laments he can buy cooking wine which is 14% etoh but cannot buy nutrition supplement drinks c benefits card. Pt generally goes to bed at 5am and wakes up and finishes his beer from the night before around lunch time. Pt pleasant, CIWA 0 during whole of hospital stay thus far. Per nursing pt wearing same socks for 1mo, has stage 1 and 2 sacral decubitus ulcers on buttocks, one requiring bedside debridement. 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 Interventions: 1. Educated pt on importance of etoh cessation and implications for nutrient malabsorption. 2. Encouraged pt to consume three meals per day to support LBM. Recc pt request ONS Ensure c MOW deliveries to support kcal and protein needs at home. 3. Recc ONS Morteza bid and Ensure Enlive once daily to support kcal and pro needs for PCM and post-surgical healing. Diet Order: general EER: 2,030kcal (35kcal/kg per PCM), 81g PRO (1.4g/kg per PCM and post surgical healing) Monitoring/Evaluations: ONS tolerance, daily weights
--- NOTE | 2020-06-19 12:30 | OT.IP.EVAL ---
Current Diagnoses Gangrene, not elsewhere classified (06/18/20) Displaced intertrochanteric fracture of right femur, initial encounter for closed fracture (06/18/20) Surgery Performed Operation Date: 06/18/20 17:00 Actual Procedures p Intramedullary Nailing Femur(Right) - Carlitos Betancourt MD Past Medical History (Last Reviewed 06/19/20 @ 09:19 by Sangeeta Morales PA-C) Alcohol abuse History of pneumothorax Hypertension Surgical History (Last Reviewed 06/19/20 @ 09:19 by Sangeeta Morales PA-C) History of hip surgery History of knee surgery Occupational Therapy Inpatient Evaluation/Re-Eval M1 PT/OT-IP Prior Functional Status Start: 06/19/20 08:21 Freq: NEEDED Status: Active Protocol: Document 06/19/20 12:34 CGR (Rec: 06/19/20 12:51 CGR [id number]) Medical Review Prior Functional Status Medical History Reviewed Yes Communication Pt is an effective verbal communicator. Mobility and Gait Pt prior to fall was mobilizing with crutches. Since fall, pt has been using his w/c. Activities of Daily Living and IADL's Pt performs all ADLs without assist but does hav esome DME in place. Social History Household Members none Living Arrangements Apartment/Condo Number of Floors (Floors) One Floor Number of Stairs To Enter/Railing? One step into front door and back porch. Back porch has a railing on the L assending. Home Environment Standard Height Toilet,Tub/ Shower Home Equipment Crutches,Manual Wheelchair, Shower Seat without Backrest, Hand Held Shower,Grab Bars Near Toilet,Grab Bars In Shower Employment Status Retired Additional Social History Comment Pt lives alone, gets meals on wheels 3 times a week and otherwise is able to cook for himself. Pt has a elementary school social worker [employer] and a friend that check in on him regularly. M2 OT-IP Current Condition Start: 06/19/20 12:33 Freq: Status: Active Protocol: Document 06/19/20 12:34 CGR (Rec: 06/19/20 12:51 CGR [id number]) Occupational Therapy Current Condition Current Condition Evaluation Date 06/19/20 Treatment Diagnosis R hip fx s/p R cepalomedullary nailing Diagnosis Onset Date 06/18/20 Weight Bearing Status Weight Bearing Status Weight Bear as Tolerated M3 OT- IP Subjective and Pain Start: 06/19/20 12:33 Freq: Status: Active Protocol: Document 06/19/20 12:34 CGR (Rec: 06/19/20 12:51 CGR [id number]) OT- Subjective Occupational Therapy Visit Type Type Initial Evaluation Visit Start Time 12:03 Visit Stop Time 12:30 Total Visit Minutes 27 Notes Co-treat with P.T. OT Pain Assessment Pain When Pain Assessed After Treatment Pain Present Pain Present Pain Reported Location Right Hip Intensity 9 Scale Used Numeric (0 - 10) Management Techniques Distraction,Modification of Treatment,Re-positioning, Timing of Activity with Medications M4 OT- IP ADL's Start: 06/19/20 12:33 Freq: Status: Active Protocol: Document 06/19/20 12:34 CGR (Rec: 06/19/20 12:51 CGR [id number]) OT DUP-Acer-Hvwrkjl Comments OT Self-Feeding Comments Not meal time but pt is able to drink water without difficulty OT ADL-Grooming General Evaluation Grooming Ability Standby Assistance Areas Needing Assistance Combing/Brushing Hair,Face Washing Comments OT Grooming Comments Pt washed face and brushed hair and hawley seated in chair . OT ADL-Oral Care Comments Oral Care Comments Not performed OT ADL-Dressing General Eval Lower Body Dressing Ability Total Assistance Areas Needing Assistance Socks Comments OT Dressing Comments supine in bed OT ADL-Toileting General Evaluation Toileting Ability Total Assistance Comments OT Toileting Comments Pt with rodriguez OT ADL-Bathing Comments OT Bathing Comments Not performed M5 OT- IP IADL's Start: 06/19/20 12:33 Freq: Status: Active Protocol: Document 06/19/20 12:34 CGR (Rec: 06/19/20 12:51 CGR [id number]) OT-Instrumental Activities of Daily Living Deficits IADL Deficits Identified Deficits Home Safety Awareness Awareness of Need for Assistance at Home Decreased Awareness Ability to Problem Solve Emergency Able to Problem Solve Situations M6 OT- IP Functional Cognition Start: 06/19/20 12:33 Freq: Status: Active Protocol: Document 06/19/20 12:34 CGR (Rec: 06/19/20 12:51 CGR [id number]) Cognitive Factors Limiting Selfcare Function Cognitive Ability Level of Alertness Alert Patient Orientation Name,Place,Situation Attention Span Ability Capable of Focused Attention, Capable of Sustained Attention Ability to Follow Commands Able to Follow One Step Commands with Increased Time, Able to Follow One Step Commands with Repetition Cognitive Comments Cognitive Assessment Comments Pt appears to need extra vc d/ t pain. OT- Vision and Hearing OT- Hearing Assessment OT- Hearing Assessment WFL OT- Vision Assessment Visual Acuity WFL Visual Attentiveness WFL Occular Pursuits WFL M7 OT- IP Mobility and Balance Start: 06/19/20 12:33 Freq: Status: Active Protocol: Document 06/19/20 12:34 CGR (Rec: 06/19/20 12:51 CGR [id number]) OT- Bed Mobility Assessment Supine to Sit Supine to Sit Assist Maximum Assistance,2 Person Assistance,Bedrails Scooting Scooting to Edge of Bed Maximum Assistance,2 Person Assistance,Bedrails OT-Transfer Assessment Sit to and From Stand Sit to and from Stand Maximum Assistance,2 Person Assistance Transfers Transfer Ability Moderate Assistance,1 Person Assistance Technique Transfer Destination Bed,Chair Transfer Technique Stand Step Pivot Devices Transfer Assistive Devices Gait Belt,Front Wheeled Walker Comments Mobility Comments Pt needed max x 2 for sit to stand and stand to sit but was MOD x1 for steps to chair. OT- Balance Assessment Sitting Balance and Reactions Static Sitting Balance Ability Good Dynamic Sitting Balance Ability Fair M8 OT- IP Objective Assessments Start: 06/19/20 12:33 Freq: Status: Active Protocol: Document 06/19/20 12:34 CGR (Rec: 06/19/20 12:51 CGR [id number]) OT Gross Range of Motion Upper Extremity Range of Motion Assessment Within Functional Limits OT Strength Upper Extremity Strength Assessment Within Functional Limits Comments Strength Comments grossly 4/5 OT- Coordination Assessment Upper Extremity Finger to Nose Test Within Functional Limits Finger Tapping Test Within Functional Limits OT-Muscle Tone Assessment Muscle Tone WNL Yes OT Sensation Assessment Edema Edema Present Edema Comments Noted swelling to the RLE M9 OT- IP Assessment and Plan Start: 06/19/20 12:33 Freq: Status: Active Protocol: Document 06/19/20 12:34 CGR (Rec: 06/19/20 12:51 CGR [id number]) OT Summary Assessment and Plan Potential Rehabilitation Potential Good Analytic Complexity at Evaluation Moderate Summary OT Impairments Pain,Strength,Balance, Functional Mobility,Grooming, Dressing,Toileting,Bathing, Toilet Transfers,Shower Transfers,Activity Tolerance Progress Towards Goals Slow Progress due to Pain Assessment Summary Pt presents as a moderate complexity evaluation s/p admit with R hip fx. Pt is WBAT and was able to ambulate to the chair on this date with 2 person assist. Pt will continue to benefit from therapy services and will likely need SNF upon discharge . Goals Grooming Goal Independent Dressing Goal Independent Toileting Goal Independent Bathing Goal Independent Toilet Transfer Goal Independent Shower Transfer Goal Independent Days to Meet Goals 20 Frequency of Treatment Frequency Of Treatment Once a Day Treatment Plan OT Treatment Plan ADL Training,Functional Mobility,Patient/Family Education,Discharge Planning Other Treatment Recommendations and Next ADLs seated, bsc or toilet Treatment Focus transfer. Discharge Recommendations OT Discharge Recommendations SNF Rehab Home Equipment Needs TBD Transportation Needs at Discharge Wheelchair/Cabulance
--- NOTE | 2020-06-19 13:03 | PT.IIE ---
Current Diagnoses Gangrene, not elsewhere classified (06/18/20) Displaced intertrochanteric fracture of right femur, initial encounter for closed fracture (06/18/20) Surgery Performed Operation Date: 06/18/20 17:00 Actual Procedures p Intramedullary Nailing Femur(Right) - Carlitos Betancourt MD Surgical History (Last Reviewed 06/19/20 @ 09:19 by Sangeeta Morales PA-C) History of hip surgery History of knee surgery Medical History (Last Reviewed 06/19/20 @ 09:19 by Sangeeta Morales PA-C) Alcohol abuse History of pneumothorax Hypertension Physical Therapy Inpatient Evaluation/Re-Eval M1 PT/OT-IP Prior Functional Status Start: 06/19/20 08:21 Freq: NEEDED Status: Active Protocol: Document 06/19/20 12:34 CGR (Rec: 06/19/20 12:51 CGR [id number]) Medical Review Prior Functional Status Medical History Reviewed Yes Communication Pt is an effective verbal communicator. Mobility and Gait Pt prior to fall was mobilizing with crutches. Since fall, pt has been using his w/c. Activities of Daily Living and IADL's Pt performs all ADLs without assist but does hav esome DME in place. Social History Household Members none Living Arrangements Apartment/Condo Number of Floors (Floors) One Floor Number of Stairs To Enter/Railing? One step into front door and back porch. Back porch has a railing on the L assending. Home Environment Standard Height Toilet,Tub/ Shower Home Equipment Crutches,Manual Wheelchair, Shower Seat without Backrest, Hand Held Shower,Grab Bars Near Toilet,Grab Bars In Shower Employment Status Retired Additional Social History Comment Pt lives alone, gets meals on wheels 3 times a week and otherwise is able to cook for himself. Pt has a high school social studies tutor Gm Means and a friend that check in on him regularly. M2 PT-IP Current Condition Start: 06/19/20 08:21 Freq: NEEDED Status: Active Protocol: Document 06/19/20 12:30 AW (Rec: 06/19/20 13:03 AW [id number]) Physical Therapy Current Condition Current Condition Evaluation Date 06/19/20 Treatment Diagnosis R displaced IT fracture s/p CMN; sacral PI; difficulty in walking Onset Date 06/07/20 Precautions Other Precautions caution with sacral PI to avoid shear forces Weight Bearing Status Weight Bearing Status Weight Bear as Tolerated M3 PT-IP Subjective Start: 06/19/20 08:21 Freq: NEEDED Status: Active Protocol: Document 06/19/20 12:30 AW (Rec: 06/19/20 13:03 AW [id number]) Subjective Physical Therapy Visit Type Type Initial Evaluation Visit Start Time 12:03 Visit Stop Time 12:30 Total Visit Minutes 27 Notes Co-eval with OT Number of CURB BUILDER Visits 0 Physical Therapy Visit Comments Patient Comments Do we really have to do this now? Therapy Pain Assessment Pain When Pain Assessed During Mobility Pain Present Pain Present Pain Reported Location Right Hip Intensity 9 Scale Used 5/10 at rest Pain Behaviors Calling Out,Facial Grimacing, Restlessness,Wincing Pain Management Techniques Re-positioning,Timing of Activity with Medications M4 PT-IP Mobility and Gait Start: 06/19/20 08:21 Freq: NEEDED Status: Active Protocol: Document 06/19/20 12:30 AW (Rec: 06/19/20 13:03 AW [id number]) PT-Bed Mobility Assessment Supine to Sit Supine to Sit Maximum Assistance,2 Person Assistance,Bedrails Scooting Scooting to Edge of Bed Maximum Assistance PT-Transfer Assessment Sit to and From Stand Sit to and from Stand Maximum Assistance,2 Person Assistance,Use of Upper Extremities Equipment Transfer Assistive Device Gait Belt,Front Wheeled Walker Orthotic/Prosthetic Devices or Brace: No Transfers Transfer Destination Chair Transfer Technique Stand Step Pivot Transfer Ability Level of Assist Maximum Assistance,2 Person Assistance Comments Mobility Comments Pt was reclined in the bed after echocardiogram as PT and OT arrived. BP was 113/64 HR 121. He transitioned supine to long-sitting with max 2PA and continued to require max 2PA to rotate his hips toward left EOB using draw sheet with waffle cushion in place in order to avoid shear forces across sacrum. At EOB, pt was able to place his feet on the floor. PT instructed pt to place his right foot out in front and to pull his left foot back and to lean forward for weight acceptance on LLE. With max 2PA, pt was able to stand and to shift his weight side to side with heavy UE weightbearing on the FWW. Pt responded well to cues for hip extension before pushing the walker forward and ambulating a total of 3 feet to the bedside chair using FWW mod A x 1. Pt then required max 2PA to guide his hands back to the chair arms and to control descent to the chair. He was positioned with call light and all needs within reach. Gait Assessment Gait Gait Assistance Required: Moderate Assistance,1 Person Assist Distance (Feet) 3 Able to Maintain Weight Bearing Status Yes During Gait Assistive Devices Assistive Device Gait Belt,Front Wheeled Walker Orthotic/Prosthetic Devices or Brace: No Gait Deviations General Gait Pattern Antalgic,Decreased Stride Length,Decreased Feet Clearance,Flexed Trunk,Lateral Trunk Lean,Step-to Gait Factors Limiting Gait Function Factors Limiting Gait Function Decreased Activity Tolerance, Decreased Sensation,Decreased Strength,Difficulty Following Directions,Limited Range of Motion,Pain,Poor Balance,Poor Safety Awareness Comments Gait Comments Pt able to take steps during SPT. See mobility comments for details. Stair Climbing Assessment Comments Stair Climbing Comments Not assessed. PT-Balance Assessment Sitting Balance and Reactions Static Sitting Balance Ability Good Dynamic Sitting Balance Ability Good Standing Balance and Reactions Static Standing Balance Ability Poor Dynamic Standing Balance Ability Poor Device Used FWW M5 PT-IP Objective Assessments Start: 06/19/20 08:21 Freq: NEEDED Status: Active Protocol: Document 06/19/20 12:30 AW (Rec: 06/19/20 13:03 AW [id number]) Orientation Orientation/Cognition Level of Alertness Confusional State Orientation Name,Month,Place,Situation Language Function Ability No Deficits Noted Safety Awareness Decreased Safety Awareness Memory Description Short Term Impaired Gross Range of Motion Lower Extremity ROM Assessment Right Impaired Strength Lower Extremity Strength Assessment Bilaterally Impaired Hip L 4/5; R 3-/5 Knee L 4/5; R 3/5 Ankle B 4-/5 Sensation Assessment Sensation Gross Sensation Right LE Impaired Proprioception (Position) Impaired Muscle Tone Muscle Tone WNL Yes M6 PT-IP Treatment Start: 06/19/20 08:21 Freq: NEEDED Status: Active Protocol: Document 06/19/20 12:30 AW (Rec: 06/19/20 13:03 AW [id number]) Physical Therapy Treatment Exercises Exercises Ankle Pumps,Quad Sets,Heel Slides Education Education Provided Weight Bearing Status,Safety Other Treatments Other Treatment Performed Provided education on role of PT, plan of care, importance of early and continued mobility, weightbearing status , and safe use of FWW. M7 PT-IP Assessment and Plan Start: 06/19/20 08:21 Freq: NEEDED Status: Active Protocol: Document 06/19/20 12:30 AW (Rec: 06/19/20 13:03 AW [id number]) PT Summary Assessment and Plan Potential Rehabilitation Potential Good Status of Condition at Evaluation Evolving Summary Impairments Pain,ROM,Strength,Balance, Sensation,Cognition,Bed Mobility,Transfers,Gait, Activity Tolerance Assessment Summary Pradip is a 65 yo resident of [facility] who fell on 06/07, was unable to walk, and used a wheelchair to mobilize until falling out of his w/c 2 days ago. He sustained a R intertrochanteric fracture and is now POD1 following CMN. He is modified independent at baseline with use of bilateral axillary crutches. On evaluation, he required max 2- person assist for bed mobility and transfers. Once he was up with the walker, he was able to ambulate briefly with mod one-person assist using FWW. Pt will require SNF rehab to improve strength and functional mobility. Goals Bed Mobility Goal Standby Assistance Transfer Goal Contact Guard Assistance,Front Wheeled Walker Gait Goal Standby Assistance,Front Wheel Walker Gait Distance 75 Other Goals up/down one step with L rail CGA (ONLY if going home) Days to Meet Goals 10 Frequency of Treatment Frequency Of Treatment Twice a Day Treatment Plan Physical Therapy Treatment Plan Bed Mobility Training,Transfer Training,Gait Training, Therapeutic Exercise,Balance Retraining,Post Op Education, Discharge Planning,Hot or Cold Pack,Neuromuscular Re-ed Other Recommendations and Next Treatment bed mobility, transfers, Focus ambulation with FWW as able Recommendations To Nursing Amount of Assist Needed 2 Person Assist Discharge Recommendations PT Discharge Recommendations SNF Rehab Equipment Needed for Home Before defer to subacute rehab Discharge setting Transportation Needs at Discharge Wheelchair/Cabulance
--- NOTE | 2020-06-19 13:15 | CM.IDA ---
Initial DCP Assessment Note Patient is a 65 yo male, resident of [facility]. Patient presents after GLF, subsequent fx and hip repair by Dr Betancourt, POD#1 today. Patient also found to have Stage II gluteal ulcer that required debridement by Dr Ying Farias. PCP: Not listed Payer: [facility] Reviewed chart. Met w/patient to introduce role and discuss DCP options. Patient is POD#1 from hip repair surgery and ulcer debridement, therapy team recommending SNF stay for rehab recovery. Patient explains he lives alone in a subsidized housing apt for seniors on [facility], gets meals on wheels and is connected w/the [facility]. Patient has no local family and listed contact is Gm Means who works at the [employer], patient states he's a good man and great advocate. Patient states he didn't know his bottom had gotten that bad states he had been mostly chair bound for the last two weeks since his hip pain had become too debilitating to move well. Patient states he has no HH or FERMIN cgs at this time. Patient admits to drinking 1-2 beers daily, maybe less because they're expensive. Patient states overall things had been going well at home, states he has good friends that visit and assist w/meal prep. Discussed recommendation for SNF and patient agreeable, states that sounds like the best plan patient has no SNF preference, this DANCE CRITIC explained that SNF bed availability is limited d/t COVID-19 pandemic and patient understood. Also explained process through [facility], that SNF auth would need to be requested. Attempted [facility] and [facility] today- [facility] full at this time, Jason at [facility] states the combination of care needs and [facility] insurance are barriers to acceptance. Requested [facility] Alyssa fax addtl. SNF facilities today. As we head into the Holiday w/e, patient may remain admitted until either 1. [facility] back open Tuesday and SNF accepts for admission or 2. Patient progresses enough to return home w/ [facility] (?) and resumption of community services through [facility]. If DCP team and patient preparing for home; contact community relations police lieutenant/friend Gm Means P# [phone] to coordinate plan. KATT Trinh Discharge Planning/Care Management CM Discharge Assessment Start: 06/19/20 13:11 Freq: Status: Active Protocol: Document 06/19/20 13:13 [id number] (Rec: 06/19/20 13:15 [id number] [id number]) Discharge Planning Assessment Assigned Blow Molder KATT Khan DPOA/Assigned Designee Name Gm Means, friend, foster care social worker ([place]) Contact Information [phone] Advance Directives? No History Provided By Patient Prior Living Arrangements Apartment/Condo Household Members none Willing to Return to Facility? Yes Independent with ADL's No Is patient alert and oriented? Yes Patient/Family Preference [facility] Facility Barriers to Discharge Yes Discharge Plan [facility] Facility Transportation Arrangement Wheelchair if patient can tolerate Referrals Initiated Prison
--- NOTE | 2020-06-19 13:26 | PC.NURSE ---
Assuming care of patient for day shift. Patient was moved into room 207 with all belongings. Patient currently up in chair, had fallen asleep on and off, now states he thinks oxycodone is helping for his discomfort. rodriguez intact and draining. Dressings intact at this time. Call light within reach. Continue to monitor.
--- NOTE | 2020-06-19 13:53 | PM.PN.1 ---
Subjective Subjective Date Patient Seen: 06/19/20 Interval history: Pradip Barron is a 65-year-old male with a past medical history significant for hypertension, tobacco dependence, and alcohol dependence with history of alcohol withdrawal and DTs who presented to the ED via EMS with right hip pain. Patient is resting in bed comfortably. He has mild right hip pain which is controlled. He endorses chronic cough and congestion likely related to COPD with chronic bronchitis. He denies symptoms of alcohol withdrawal. He has no other complaints and denies headache, chest pain, shortness of breath, abdominal pain, nausea, vomiting, fever, chills, dysuria, diarrhea or constipation. He is voiding via Rodriguez catheter without difficulty. He has not had a bowel movement since admission and a bowel regimen has been implemented. Plan for PT and OT today. Exam Vital Signs (past 8 hours): - 06/19/20 07:57 06/19/20 12:30 Temperature 98.8 F 98.9 F Pulse Rate 109 H 112 H Respiratory Rate 18 20 Blood Pressure 110/68 113/64 Pulse Oximetry 100 94 Oxygen Delivery Method Nasal Cannula Oxygen Flow Rate 0 Narrative Exam Narrative: General: Older thin male lying in bed and in no acute distress, appears significantly older than stated age, poor hygiene, appropriately interactive. HEENT: Normocephalic, atraumatic. External ears without defect. Pupils equal, round, and reactive to light. Anicteric sclerae, moist conjunctivae, and no lid lag. Oropharynx free of erythema and cobble stoning with moist mucosa. Poor dentition. Neck: Supple with full range of motion. No jugular venous distension. No lymphadenopathy or thyromegaly. Cardiovascular: Regular rhythm, mild tachycardia without murmurs, rubs, or gallops appreciated. Pulmonary: Clear to auscultation bilaterally without crackles, wheezes, or rhonchi. Normal respiratory effort with no use of accessory muscles. Abdomen: Soft, bowel sounds present, nontender, nondistended. No hepatosplenomegaly or masses appreciated. Buttocks: Large sacral decubitus ulcers with Alevyn dressing in place. Extremities: No clubbing or cyanosis. Moderate bilateral pitting edema to pretibial area R>L. Significant bruising down right lower extremity. Brown discoloration of distal tip of 3rd digit possibly due to Buerger's disease. Right hip with dressing in place C/D/I. Distal pulses in ROM intact. Skin: Normal temperature, turgor, and texture; no rash, ulcers, or subcutaneous nodules appreciated. Neurological: Cranial nerves grossly intact. Psychiatric: Normal mood and affect. Alert and oriented to person, place, and time. Mild cognitive impairment with short-term memory recall deficit. Objective Labs Result Diagrams: 06/19/20 05:00 06/19/20 05:00 Labs: Laboratory Results - last 24 hr 06/18/20 06/18/20 06/19/20 04:06 22:35 05:00 WBC RBC Hgb 10.0 L Hct 29.1 L MCV MCH MCHC RDW Plt Count Neut % (Auto) Lymph % (Auto) [place] % (Auto) Eos % (Auto) Baso % (Auto) Neut # (Auto) Lymph # (Auto) [place] # (Auto) Eos # (Auto) Baso # (Auto) Sodium 123 L Potassium 3.8 Chloride 93 L Carbon Dioxide 29 BUN 5 L Creatinine 0.38 L Estimated GFR > 60.0 BUN/Creatinine Ratio 13.2 Glucose 139 H Hemoglobin A1c Calcium 7.7 L Magnesium 1.6 Procalcitonin A. baumannii (PCR) Not detected Pretty albicans (PCR) Not detected C. glabrata (PCR) Not detected C. krusei (PCR) Not detected C. parapsilosis (PCR) Not detected C. tropicalis (PCR) Not detected Enterobacteriac sp PCR Not detected E. cloacae complex PCR Not detected Enterococcus sp PCR Not detected E. coli (PCR) Not detected H. influenzae (PCR) Not detected Klebsiella oxytoca PCR Not detected Klebsiella pneumoniae Not detected List. monocytogenes PCR Not detected N. meningitidis (PCR) Not detected Proteus species (PCR) Not detected Serratia marcescens PCR Not detected Staphylococcus sp PCR Detected H Staph aureus (PCR) Not detected mecA-Methicil Res Gene Detected H Streptococcus sp PCR Not detected Group A Strep (PCR) Not detected Strep agalactiae (PCR) Not detected Strep pneumoniae (PCR) Not detected P. aeruginosa (PCR) Not detected Fabiola/B-Vanco Res Genes Not Reportable KPC-Carbap Res Gene PCR Not Reportable 06/19/20 06/19/20 06/19/20 05:00 07:47 07:47 WBC 5.6 RBC 2.72 L Hgb 9.0 L Hct 26.3 L MCV 96.7 MCH 33.1 MCHC 34.2 RDW 13.8 Plt Count 128 L Neut % (Auto) 83.6 H Lymph % (Auto) 10.2 L [place] % (Auto) 4.4 Eos % (Auto) 1.4 L Baso % (Auto) 0.4 Neut # (Auto) 4700 Lymph # (Auto) 600 L [place] # (Auto) 200 Eos # (Auto) 100 Baso # (Auto) 0 Sodium Potassium Chloride Carbon Dioxide BUN Creatinine Estimated GFR BUN/Creatinine Ratio Glucose Hemoglobin A1c 5.0 Calcium Magnesium Procalcitonin 0.13 A. baumannii (PCR) Pretty albicans (PCR) C. glabrata (PCR) C. krusei (PCR) C. parapsilosis (PCR) C. tropicalis (PCR) Enterobacteriac sp PCR E. cloacae complex PCR Enterococcus sp PCR E. coli (PCR) H. influenzae (PCR) Klebsiella oxytoca PCR Klebsiella pneumoniae List. monocytogenes PCR N. meningitidis (PCR) Proteus species (PCR) Serratia marcescens PCR Staphylococcus sp PCR Staph aureus (PCR) mecA-Methicil Res Gene Streptococcus sp PCR Group A Strep (PCR) Strep agalactiae (PCR) Strep pneumoniae (PCR) P. aeruginosa (PCR) Fabiola/B-Vanco Res Genes KPC-Carbap Res Gene PCR PFSH Medical History Alcohol abuse History of pneumothorax Hypertension Surgical History History of hip surgery History of knee surgery Family History Brother Cancer Mother Alzheimer's dementia Social History household members: none Smoking Status: Current every day smoker alcohol intake: current Assessment & Plan Assessment & Plan narrative: Pradip Barron is a 65-year-old male with a past medical history significant for hypertension, tobacco dependence, and alcohol dependence with history of alcohol withdrawal and DTs who presented to the ED via EMS with right hip pain. 1. Acute pathological right comminuted intertrochanteric femur fracture, acute, present on admission, active. -Patient presented after sustaining a ground level fall 10 days prior to admission with abrupt onset right hip pain and inability to ambulate. Patient was mobilizing using wheelchair at home. -Hip x-ray demonstrated comminuted right intertrochanteric femur fracture. -Consulted Orthopedic surgery, Dr. Betancourt, who performed. Continue postoperative management, pain control and VTE prophylaxis per Orthopedic surgery. -Continue aspirin 81 mg twice daily for VTE prophylaxis and famotidine 20 mg twice daily for GI prophylaxis. -Continue calcium and vitamin-D3 supplementation. Patient will need to be treated for osteoporosis by orthopedic surgery or PCP. 2. Acute blood loss anemia on anemia of chronic disease, present on admission. Stable. -Initial hemoglobin 12.6. Baseline hemoglobin 12-13. Hemoglobin trending down now 9.0 secondary to acute blood loss and hemodilution from IV fluids. Transfusion goal hemoglobin < 7.0. -ordered iron profile, B12 and folate levels. -Continue to monitor H&H daily. 3. Sacral decubitus ulcers with eschar, acute, present on admission. Active. -Patient presented with 7 cm x 6 cm sacral decubitus covered with black eschar and is unstageable. -Blood cultures x2 have no growth to date other than 1 bottle with coag-negative staph which represents skin contamination. -Consulted general surgery, Dr. Farias, who performed bedside debridement. Continue wound care per nursing. General surgery does not feel that sacral decubitus pressure ulcer is infected and have discontinued antibiotics (received vancomycin per pharmacist, levofloxacin and Zosyn). -Continue frequent turning, repositioning and offloading. 4. Hyponatremia, acuity unclear, present on admission. Active. -Secondary to chronic alcohol use, dehydration and poor nutritional intake. -Initial sodium 122. Sodium level slightly improved with IV fluid hydration now 123. -Continue normal saline at 100 mL/hr. -Continue to monitor sodium level daily. 5. Alcohol dependence, chronic, present on admission. Stable. -Patient reports consuming 3 beers a day. Patient has history of alcohol withdrawal with delirium tremens but denies history of alcohol withdrawal seizure. -Alcohol level < 10 on admission. -Continue CIWA protocol with seizure precautions and lorazepam p.o. or IV per CIWA protocol. Patient's CIWA score has remained low. -Continue folic acid 1 mg daily, thiamine 100 mg daily and multivitamin daily. -Counseled the patient on alcohol use and recommended cutting back or abstaining from alcohol. -Obtained echocardiogram which was unremarkable and did not demonstrate alcohol-induced cardiomyopathy. 6. Hypertension, chronic, present on admission. Stable. -Patient is not medically treated. Patient has history of hypertension is likely secondary to alcohol use. -Continue to monitor blood pressure and treat if elevated. 7. Tobacco dependence, chronic, present on admission. Stable. -Patient reports he smokes 0.5 ppd every 3 days. -Continue Nicoderm patch daily to prevent nicotine withdrawal. -Counseled patient extensively and recommended indefinite smoking cessation. 8. Severe chronic protein calorie malnutrition, present on admission. Stable. -BMI 20.6. Secondary due to physical immobility and chronic alcohol use as evidence by 12.2% unintentional weight loss in 3 months, meeting <50% EER in past 3 months, patient found on floor by EMS after suffering hip fracture and had been using wheelchair for weeks prior due to weakness, imaging showing diffuse osteopenia, and sacral decubitus ulcers with eschar. -Consulted dietitian appreciate her time and recommendations. -Patient is high risk of infection, surgical complication, morbidity and mortality due to poor nutritional status with poor ability to heal. Code status: Full code, patient designates Krupa Iniguez to be his surrogate decision maker. VTE prophylaxis: ASA, compression stockings Disposition: Patient remains hospitalized and will undoubtedly need group home facility for continued rehabilitation and wound care. Quality VTE Deep Vein Thrombosis/Pulmonary Embolism Present on Admission: No
[2020-06-19] MEDS: MAGNESIUM CHLORIDE 64 MG TABLET PO (14:04)
--- NOTE | 2020-06-19 14:06 | PT.IPTN ---
Current Diagnoses Gangrene, not elsewhere classified (06/18/20) Displaced intertrochanteric fracture of right femur, initial encounter for closed fracture (06/18/20) Surgery Performed Operation Date: 06/18/20 17:00 Actual Procedures p Intramedullary Nailing Femur(Right) - Carlitos Betancourt MD Physical Therapy Treatment Note M2 PT-IP Current Condition Start: 06/19/20 08:21 Freq: NEEDED Status: Active Protocol: Document 06/19/20 12:30 AW (Rec: 06/19/20 13:03 AW [id number]) Physical Therapy Current Condition Current Condition Evaluation Date 06/19/20 Treatment Diagnosis R displaced IT fracture s/p CMN; sacral PI; difficulty in walking Onset Date 06/07/20 Precautions Other Precautions caution with sacral PI to avoid shear forces Weight Bearing Status Weight Bearing Status Weight Bear as Tolerated M3 PT-IP Subjective Start: 06/19/20 08:21 Freq: NEEDED Status: Active Protocol: Document 06/19/20 13:47 SP (Rec: 06/19/20 14:21 SP [email or web address]) Subjective Physical Therapy Visit Type Type Treatment Note Visit Start Time 13:47 Visit Stop Time 14:06 Total Visit Minutes 19 Number of CARTON CATCHER Visits 1 Physical Therapy Visit Comments Patient Comments I don't want to get up out of the chair, the girls earlier really worked me out. Pt agreeable to instruction on ther ex while sitting up in chair. Therapy Pain Assessment Pain When Pain Assessed At Rest Pain Present Pain Present Pain Reported Location Right Hip Intensity 6 Scale Used 6/10 at rest Pain Behaviors Facial Grimacing,Moaning, Restlessness Pain Management Techniques Apply Cold,Modification of Treatment,Re-positioning, Timing of Activity with Medications M4 PT-IP Mobility and Gait Start: 06/19/20 08:21 Freq: NEEDED Status: Active Protocol: Document 06/19/20 13:47 SP (Rec: 06/19/20 14:21 SP [email or web address]) PT-Transfer Assessment Comments Mobility Comments Did not assess due to refused mobility. Gait Assessment Comments Gait Comments Did not assess due to pain seated in chair and refused mobitity. May need FWW for mobility, has crutches and w/c for home use. Stair Climbing Assessment Comments Stair Climbing Comments Not assessed. Need to assess 1 step mgt for home enterance. M5 PT-IP Objective Assessments Start: 06/19/20 08:21 Freq: NEEDED Status: Active Protocol: Document 06/19/20 12:30 AW (Rec: 06/19/20 13:03 AW [id number]) Orientation Orientation/Cognition Level of Alertness Confusional State Orientation Name,Month,Place,Situation Language Function Ability No Deficits Noted Safety Awareness Decreased Safety Awareness Memory Description Short Term Impaired Gross Range of Motion Lower Extremity ROM Assessment Right Impaired Strength Lower Extremity Strength Assessment Bilaterally Impaired Hip L 4/5; R 3-/5 Knee L 4/5; R 3/5 Ankle B 4-/5 Sensation Assessment Sensation Gross Sensation Right LE Impaired Proprioception (Position) Impaired Muscle Tone Muscle Tone WNL Yes M6 PT-IP Treatment Start: 06/19/20 08:21 Freq: NEEDED Status: Active Protocol: Document 06/19/20 13:47 SP (Rec: 06/19/20 14:21 SP [email or web address]) Physical Therapy Treatment Exercises Exercises Ankle Pumps,Gluteal Sets,Quad Sets,Heel Slides Knee ROM Measurement 30 deg knee flexion AAROM Other Treatments Other Treatment Performed Provided education on role of PT, plan of care, importance of early and continued mobility, weightbearing status , and safe mobiltiy use of FWW . M7 PT-IP Assessment and Plan Start: 06/19/20 08:21 Freq: NEEDED Status: Active Protocol: Document 06/19/20 13:47 SP (Rec: 06/19/20 14:21 SP [email or web address]) PT Summary Assessment and Plan Potential Rehabilitation Potential Good Status of Condition at Evaluation Evolving Summary Impairments Pain,ROM,Strength,Balance, Sensation,Cognition,Bed Mobility,Transfers,Gait, Activity Tolerance Progress Towards Goals Slow Progress due to Pain,Slow Progress due to Medical Issues,Slow Progress due to Activity Tolerance Assessment Summary Extra time spent to educate patient importance of mobilizing with therapy to increase strength and functional mobiltiy. Pt refused out of chair activity this pm tx due to R hip pain, premedicated when arrived. Pt agreeable so instructed and Max LLE assist during RLE ther ex seated in chair to allow circulation, muscle activitation LE ROM for mobiltiy, understood benefit of working with therapy but didn't want to at this time. Therapy is recommending SNF rehab at this time for DC. Will continue to work with PT and progress as tolerated. Goals Bed Mobility Goal Standby Assistance Transfer Goal Contact Guard Assistance,Front Wheeled Walker Gait Goal Standby Assistance,Front Wheel Walker Gait Distance 75 Other Goals up/down one step with L rail CGA (ONLY if going home) Days to Meet Goals 10 Frequency of Treatment Frequency Of Treatment Twice a Day Treatment Plan Physical Therapy Treatment Plan Bed Mobility Training,Transfer Training,Gait Training, Therapeutic Exercise,Balance Retraining,Post Op Education, Discharge Planning,Hot or Cold Pack,Neuromuscular Re-ed Other Recommendations and Next Treatment bed mobility, transfers, Focus ambulation with FWW as able Recommendations To Nursing Amount of Assist Needed 2 Person Assist Discharge Recommendations PT Discharge Recommendations SNF Rehab Equipment Needed for Home Before defer to subacute rehab Discharge setting Transportation Needs at Discharge Wheelchair/Cabulance
[2020-06-19] MEDS: SODIUM CHLORIDE 0.9% 1,000 ML 100 ML IV (14:47)
--- NOTE | 2020-06-19 14:56 | CM.DPNOTE ---
Addendum entered by Racquel Hendricks LPN 06/20/20 15:17: DCP: continued: UR AUBREY Osorio left note this morning saying that [facility] cannot accept pt for admission. Original Note: Faxed clinicals to [facility], [facility], [facility] [place] and [facility] for referral. Alyssa Anderson CM Asst.
[2020-06-19 15:22] LABS: HEMOLYSIS < 15 (0-50); Iron 23 ug/dL (49-181)
[2020-06-19 15:32] LABS: Percent Iron Saturation 11 % (20-50); Total Iron Binding Capacity 206 ug/dL (261-462); Transferrin 137 mg/dL (206-381)
[2020-06-19] MEDS: ACETAMINOPHEN 325 MG TABLET 650 MG PO (15:51)
[2020-06-19] MEDS: OXYCODONE IR 10 MG TABLET PO ×2 (15:51→19:58)
[2020-06-19] MEDS: polyethylene glycoL 3350 17 GM POWD.PACK PO (15:51)
[2020-06-19 16:32] LABS: Folate 3.8 ng/mL (2.76-20.0); Vitamin B12 670 pg/mL (239-931)
--- NOTE | 2020-06-19 17:14 | PC.NURSE ---
Addendum entered by Debby Cespedes R.N. 06/19/20 23:36: Pt's HR reported to be in 130's as shift draws to a close. Hospitalist Jim informed by PRODUCTION LABORER, Diya, who is monitoring telemetry. Pt denies any concerns or complaints. Addendum entered by Debby Cespedes R.N. 06/19/20 22:08: Pt has loose, soft bowel movement on bedpan. Dressings changed once again to buttocks BL. Careful cleansing was performed following BM. Addendum entered by Debby Cespedes R.N. 06/19/20 21:36: Pt is able to turn in bed onto right side well. Removed saturated allevyn dressings to BL buttocks leaving sacral dressing (which is dry) intact. Cleansed buttocks with normal saline and 4 x 4's, applied Santyl equivalent as per surgeon's prog note and placed folded 4 x 4 into deepest wound bed and then applied large allevyn dressings to BL buttocks covering ulcers entirely. Pt tolerated well. Pt agreeable to remaining on right side to keep pressure off of buttocks. Has waffle cushion in place in bed. BL calf scd's replaced. Addendum entered by Debby Cespedes R.N. 06/19/20 20:31: Agreeable now to transfer into bed from recliner. Assisted by three staff members and pt does quite well utilizing walker and gait belt. Allevyn gentle border dressings x 3 to sacrum intact but left lateral gluteal dressing is saturated. Pt was medicated for right hip pain and will change dressings when pain meds become effective. Pt in agreement. Addendum entered by Debby Cespedes R.N. 06/19/20 18:48: Pt remains in recliner. Rouses easily to voice, but states sleeping. Instructed pt in rationale for returning to bed to alleviate pressure off of buttocks/sacral ulcers. Informed pt can utilize as many staff members as needed to assist pt to transfer. Requested pt give this verse writer timeline for mobilizing and returning to bed. Pt states tomorrow. Reapproached pt again with discussion of repositioning in bed to relieve pressure off of buttocks. Pt admits, that is probably a good idea. Further states, It's going to be alot of work. Informed pt can summon multiple staff members to assist. Pt refuses stating wants to remain in recliner. Discussed with pt then at the very least reclining chair even further to offload and relieve pressure to buttocks. Pt in agreement and allows staff to lie recliner nearly flat. Pericare completed by this verse writer. Noted area of serosang drainage on green pad under pt between pt legs. Informed pt not ideal to sit in/on soiled pad. Discussed with pt at the very last standing to allow staff to change pad. Pt resistant to this intervention. Pt was informed this scenario is not good for sacral wounds. Discussion with pt re alcohol use/withdrawal. Pt denies any withdrawal symptoms. No objective withdrawal symptoms noted. Aquacel dressing to right hip inspected and is dry and intact. Ice remains to site over gown. Pt limits and directs own care. Dinner tray remains @ bedside per pt request. I.S. and acapella are on bedside table within pt's reach. Plan to reapproach pt again this evening shift to discuss importance of changing soiled pad and changing positions to allow for sacral ulcers to heal. Does state right hip pain 5/10 s/p medication administration. Original Note: Pt up in recliner watching television. Admits to right hip pain 7/10. Administered oxycodone and tylenol as ordered. Pt has ice to right hip. Rodriguez to gravity with dark justine colored urine. Oral fluids provided and available @ bedside. Pt calls this verse writer into room @ 1710 and is holding iv catheter with tip intact in hand, stating, it came out. Bleeding easily stopped to left hand iv site and pt's hand washed with soap and water and dried. Left antecubital iv site flushed and normal saline now infusing into this site. Pt has occasional moist cough and cannot state color of sputum as states, I swallow it. Has acapella @ chairside. States prefers to remain up in recliner at this time.
[2020-06-19] MEDS: FAMOTIDINE 20 MG TABLET PO (19:58)
[2020-06-19] MEDS: DOCUSATE 100 MG CAPSULE PO (19:58)
[2020-06-19] MEDS: guaiFENesin ER 600 MG TAB 1200 MG PO (19:59)
[2020-06-20] VITALS (12 sets, daily range): BP systolic 102–144; BP diastolic 61–88; PULSE 104–123; RESP 16–18; TEMP 35.6–37.3; O2SAT 94–96
[2020-06-20] MEDS: SODIUM CHLORIDE 0.9% 1,000 ML 100 ML IV (00:47)
--- NOTE | 2020-06-20 04:04 | PC.NURSE ---
Pt tachy at start of shift, in low 130s, monitored by telemetry. Pt dropped through shift to a range of 110s to 130s bpm. Pt's SPO2 lowers when asleep. Pt awoke and was instructed to cough and breathe deep. Cough produced sputum that was white-murtaza in color. Pt was instructed to use IS, and had to be educated on proper use of equipment, as pt was exhaling into the mouthpiece instead of inhaling.
[2020-06-20 05:23] LABS: Add Manual Diff / Slide Review NO; Basophils Absolute Auto 100 /uL (0-100); Basophils Percent Auto 2.4 % (0-2); Eosinophils Absolute Auto 100 /uL (0-450); Eosinophils Percent Auto 2.4 % (2-4); Hematocrit 23.7 % (41-53); Hemoglobin 8.1 g/dL (13.5-17.5); Lymphocytes Absolute Auto 500 /uL (1100-4500); Mean Corpuscular HGB Conc 34.1 % (30-36); Mean Corpuscular Hemoglobin 32.9 PG (26-34); Mean Corpuscular Volume 96.4 fL (80-100); Monocytes Absolute Auto 200 /uL (0-900); Monocytes Percent Auto 5.3 % (3-14); Neutrophils Absolute Auto 3400 /uL (1500-7000); Neutrophils Percent Auto 77.9 % (50-75); Platelet Count 112 X10^3/uL (150-400); Red Blood Cell Count 2.46 X10^6/uL (4.5-5.9); White Blood Cell Count 4.4 X10^3/uL (4.5-11.0)
[2020-06-20 05:27] LABS: Blood Urea Nitrogen 4 mg/dL (9-20); Calcium 7.7 mg/dL (8.4-10.2); Carbon Dioxide 35 mmol/L (22-32); Chloride 94 mmol/L (98-107); Estimated Glomerular Filt Rate > 60.0 mL/min (>60); Glucose 108 mg/dL (80-110); HEMOLYSIS < 15 (0-50); Magnesium 1.5 mg/dL (1.6-2.3); Potassium 3.9 mmol/L (3.4-5.1); Sodium 124 mmol/L (137-145)
[2020-06-20 06:03] LABS: TSH w/ Reflex to FT4 1.86 uIU/mL (0.47-4.68)
[2020-06-20] MEDS: ACETAMINOPHEN 325 MG TABLET 650 MG PO (06:17)
[2020-06-20] MEDS: MAGNESIUM SULFATE 1 GM in DEXTROSE 5 % IN WATER 100 ML 102 ML IV (06:48)
--- NOTE | 2020-06-20 08:23 | PM.PNPO.1 ---
Subjective Subjective Date Patient Seen: 06/20/20 Time Patient Seen: 08:24 Interval history: He is doing well. Pain is managed with oral medication. He was up and walking to a chair yesterday with PT. Exam Vital Signs (past 8 hours): - 06/20/20 03:30 Temperature 98.9 F Pulse Rate 123 H Respiratory Rate 18 Blood Pressure 107/66 Pulse Oximetry 96 Oxygen Delivery Method Room Air Oxygen Flow Rate 0 Const Orientation: alert and oriented x3 Extrem Other: Right leg -dressings CDI. Soft calf, easily wiggles toes up and down and ankle up and down without difficulty. Moderate nontender normal postoperative swelling in the right thigh Objective Labs Result Diagrams: 06/20/20 04:50 06/20/20 04:50 Labs: Laboratory Results - last 24 hr 06/18/20 06/18/20 06/20/20 04:06 04:06 04:50 WBC 4.4 L RBC 2.46 L Hgb 8.1 L Hct 23.7 L MCV 96.4 MCH 32.9 MCHC 34.1 RDW 14.0 Plt Count 112 L Neut % (Auto) 77.9 H Lymph % (Auto) 12.0 L [place] % (Auto) 5.3 Eos % (Auto) 2.4 Baso % (Auto) 2.4 H Neut # (Auto) 3400 Lymph # (Auto) 500 L [place] # (Auto) 200 Eos # (Auto) 100 Baso # (Auto) 100 Sodium Potassium Chloride Carbon Dioxide BUN Creatinine Estimated GFR BUN/Creatinine Ratio Glucose Calcium Magnesium Iron 23 L TIBC 206 L % Saturation 11 L Transferrin 137 L Vitamin B12 670 Folate 3.8 TSH 06/20/20 06/20/20 04:50 04:50 WBC RBC Hgb Hct MCV MCH MCHC RDW Plt Count Neut % (Auto) Lymph % (Auto) [place] % (Auto) Eos % (Auto) Baso % (Auto) Neut # (Auto) Lymph # (Auto) [place] # (Auto) Eos # (Auto) Baso # (Auto) Sodium 124 L Potassium 3.9 Chloride 94 L Carbon Dioxide 35 H BUN 4 L Creatinine 0.40 L Estimated GFR > 60.0 BUN/Creatinine Ratio 10.0 Glucose 108 Calcium 7.7 L Magnesium 1.5 L Iron TIBC % Saturation Transferrin Vitamin B12 Folate TSH 1.86 [facility] Medical History Alcohol abuse History of pneumothorax Hypertension Surgical History History of hip surgery History of knee surgery Family History Brother Cancer Mother Alzheimer's dementia Social History household members: none Smoking Status: Current every day smoker alcohol intake: current Assessment & Plan Post-op Postoperative Procedures: Procedures Operation Date: 06/18/20 17:00 Actual Procedures Side Surgeon p Intramedullary Nailing Femur Right Carlitos Betancourt MD He has acute blood loss anemia most likely a combination of the fracture as well as a little bit of bleeding at the time of surgery. I have explained that femur fractures like this complete several units into the thigh itself and people tend to have much more anemia then would be expected than just surgical blood loss as the bone marrow still continues to bleed. This will stabilize. He is getting 2 units of packed red blood cells today for his symptomatic tachycardic blood loss. He is stable from an orthopedic standpoint. Continue to mobilize with physical therapy and discharged to rehab. Quality VTE Deep Vein Thrombosis/Pulmonary Embolism Present on Admission: No
[2020-06-20] MEDS: ASPIRIN EC 81 MG TABLET PO ×2 (08:35→20:40)
[2020-06-20] MEDS: MULTIVITAMIN 1 TABLET 1 TAB PO (08:35)
[2020-06-20] MEDS: FAMOTIDINE 20 MG TABLET PO ×2 (08:35→20:40)
[2020-06-20] MEDS: polyethylene glycoL 3350 17 GM POWD.PACK PO (08:35)
[2020-06-20] MEDS: guaiFENesin ER 600 MG TAB 1200 MG PO ×2 (08:35→20:40)
[2020-06-20] MEDS: THIAMINE 100 MG TABLET PO (08:35)
[2020-06-20] MEDS: DOCUSATE 100 MG CAPSULE PO ×2 (08:35→20:40)
[2020-06-20] MEDS: CALCIUM CARB/VIT D3 500/200 TABLET 1 EACH PO ×2 (08:35→17:02)
[2020-06-20] MEDS: NICOTINE 7 MG PATCH TOP (08:35)
[2020-06-20] MEDS: FOLIC ACID 1 MG TABLET PO (08:36)
--- NOTE | 2020-06-20 09:06 | PM.PN.1 ---
Subjective Subjective Date Patient Seen: 06/20/20 Interval history: Pradip Barron is a 65-year-old male with a past medical history significant for hypertension, tobacco dependence, and alcohol dependence with history of alcohol withdrawal and DTs who presented to the ED via EMS with right hip pain due to intertrochanteric fracture. Patient is day 2. Status post ORIF. He has significant pain with PT getting him from bed to chair. He has been persistently tachycardic in sinus rhythm with significant drop in his hematocrit. Exam Vital Signs (past 8 hours): - 06/20/20 03:30 Temperature 98.9 F Pulse Rate 123 H Respiratory Rate 18 Blood Pressure 107/66 Pulse Oximetry 96 Oxygen Delivery Method Room Air Oxygen Flow Rate 0 Narrative Exam Narrative: General: Alert and cooperative male lying in bed in no acute distress Lungs: Coarse bilateral breath sounds Heart: Regular rhythm with tachycardia Abdomen: Soft Extremities: Right thigh swelling, wiggles toes to command Neurological: Affect normal, speech normal Objective Labs Result Diagrams: 06/20/20 04:50 06/20/20 04:50 Labs: Laboratory Results - last 24 hr 06/18/20 06/18/20 06/20/20 04:06 04:06 04:50 WBC 4.4 L RBC 2.46 L Hgb 8.1 L Hct 23.7 L MCV 96.4 MCH 32.9 MCHC 34.1 RDW 14.0 Plt Count 112 L Neut % (Auto) 77.9 H Lymph % (Auto) 12.0 L [place] % (Auto) 5.3 Eos % (Auto) 2.4 Baso % (Auto) 2.4 H Neut # (Auto) 3400 Lymph # (Auto) 500 L [place] # (Auto) 200 Eos # (Auto) 100 Baso # (Auto) 100 Sodium Potassium Chloride Carbon Dioxide BUN Creatinine Estimated GFR BUN/Creatinine Ratio Glucose Calcium Magnesium Iron 23 L TIBC 206 L % Saturation 11 L Transferrin 137 L Vitamin B12 670 Folate 3.8 TSH Crossmatch 06/20/20 06/20/20 06/20/20 04:50 04:50 08:32 WBC RBC Hgb Hct MCV MCH MCHC RDW Plt Count Neut % (Auto) Lymph % (Auto) [place] % (Auto) Eos % (Auto) Baso % (Auto) Neut # (Auto) Lymph # (Auto) [place] # (Auto) Eos # (Auto) Baso # (Auto) Sodium 124 L Potassium 3.9 Chloride 94 L Carbon Dioxide 35 H BUN 4 L Creatinine 0.40 L Estimated GFR > 60.0 BUN/Creatinine Ratio 10.0 Glucose 108 Calcium 7.7 L Magnesium 1.5 L Iron TIBC % Saturation Transferrin Vitamin B12 Folate TSH 1.86 Crossmatch See Detail [facility] Medical History Alcohol abuse History of pneumothorax Hypertension Surgical History History of hip surgery History of knee surgery Family History Brother Cancer Mother Alzheimer's dementia Social History household members: none Smoking Status: Current every day smoker alcohol intake: current Assessment & Plan Assessment & Plan narrative: Pradip Barron is a 65-year-old male with a past medical history significant for hypertension, tobacco dependence, and alcohol dependence with history of alcohol withdrawal and DTs who presented to the ED via EMS with right hip pain. 1. Acute pathological right comminuted intertrochanteric femur fracture, acute, present on admission, active. -Patient presented after sustaining a ground level fall 10 days prior to admission with abrupt onset right hip pain and inability to ambulate. Patient was mobilizing using wheelchair at home. -Hip x-ray demonstrated comminuted right intertrochanteric femur fracture. -Consulted Orthopedic surgery, Dr. Betancourt, who performed ORIF. Continue postoperative management, pain control and VTE prophylaxis per Orthopedic surgery. -Continue aspirin 81 mg twice daily for VTE prophylaxis and famotidine 20 mg twice daily for GI prophylaxis. -Continue calcium and vitamin-D3 supplementation. Patient will need to be treated for osteoporosis by orthopedic surgery or PCP. 2. Acute blood loss anemia on anemia of chronic iron deficiency, present on admission. Stable. -Initial hemoglobin 12.6. Baseline hemoglobin 12-13. Hemoglobin trending down now 8.1 secondary to acute blood loss -he has chronic iron deficiency documented as far back as 2015, currently transferrin saturation 11, ferritin 263, previous workup unknown -patient has been tachycardic with rate 120-130 in sinus rhythm likely due to blood loss -transfuse 2 units PRBC and revaluate anemia tomorrow a.m. -consider outpatient upper and lower endoscopies for chronic anemia evaluation 3. Sacral decubitus ulcers with eschar, acute, present on admission. Active. -Patient presented with 7 cm x 6 cm sacral decubitus covered with black eschar and is unstageable. -Blood cultures x2 have no growth to date other than 1 bottle with coag-negative staph which represents skin contamination. -Consulted general surgery, Dr. Farias, who performed bedside debridement. Continue wound care per nursing. General surgery does not feel that sacral decubitus pressure ulcer is infected and have discontinued antibiotics (received vancomycin per pharmacist, levofloxacin and Zosyn). -Continue frequent turning, repositioning and offloading. 4. Hyponatremia, acute on chronic, present on admission. Active. -Secondary to chronic alcohol use, dehydration and poor nutritional intake. -Initial sodium 122. Sodium level slightly improved with IV fluid hydration now 124. -discontinue normal saline with initiating transfusions 5. Alcohol dependence, chronic, present on admission. Stable. -Patient reports consuming 3 beers a day. Patient has history of alcohol withdrawal with delirium tremens but denies history of alcohol withdrawal seizure. -Alcohol level < 10 on admission. -Continue CIWA protocol with seizure precautions and lorazepam p.o. or IV per CIWA protocol. Patient's CIWA score has remained low. -Continue folic acid 1 mg daily, thiamine 100 mg daily and multivitamin daily. -Counseled the patient on alcohol use and recommended cutting back or abstaining from alcohol. -Obtained echocardiogram which was unremarkable and did not demonstrate alcohol-induced cardiomyopathy. 6. Hypertension, chronic, present on admission. Stable. -Patient is not medically treated. -blood pressures have been normal since admission 7. Tobacco dependence, chronic, present on admission. Stable. -Patient reports he smokes 0.5 ppd every 3 days. -Continue Nicoderm patch daily to prevent nicotine withdrawal. -Counseled patient extensively and recommended indefinite smoking cessation. 8. Severe chronic protein calorie malnutrition, present on admission. Stable. -BMI 20.6. Secondary due to physical immobility and chronic alcohol use as evidence by 12.2% unintentional weight loss in 3 months, meeting <50% EER in past 3 months, patient found on floor by EMS after suffering hip fracture and had been using wheelchair for weeks prior due to weakness, imaging showing diffuse osteopenia, and sacral decubitus ulcers with eschar. -Consulted dietitian appreciate her time and recommendations. -Patient is high risk of infection, surgical complication, morbidity and mortality due to poor nutritional status with poor ability to heal. -received 1 g IV magnesium for serum magnesium level 1.5 Code status: Full code, patient designates Krupa Iniguez to be his surrogate decision maker. VTE prophylaxis: ASA, compression stockings Disposition: Patient remains hospitalized and will need alf facility for continued rehabilitation and wound care. Likely discharge tomorrow, Tuesday. Quality VTE Deep Vein Thrombosis/Pulmonary Embolism Present on Admission: No
--- NOTE | 2020-06-20 09:32 | PT.IPTN ---
Current Diagnoses Gangrene, not elsewhere classified (06/18/20) Displaced intertrochanteric fracture of right femur, initial encounter for closed fracture (06/18/20) Surgery Performed Operation Date: 06/18/20 17:00 Actual Procedures p Intramedullary Nailing Femur(Right) - Carlitos Betancourt MD Physical Therapy Treatment Note M2 PT-IP Current Condition Start: 06/19/20 08:21 Freq: NEEDED Status: Active Protocol: Document 06/19/20 12:30 AW (Rec: 06/19/20 13:03 AW [id number]) Physical Therapy Current Condition Current Condition Evaluation Date 06/19/20 Treatment Diagnosis R displaced IT fracture s/p CMN; sacral PI; difficulty in walking Onset Date 06/07/20 Precautions Other Precautions caution with sacral PI to avoid shear forces Weight Bearing Status Weight Bearing Status Weight Bear as Tolerated M3 PT-IP Subjective Start: 06/19/20 08:21 Freq: NEEDED Status: Active Protocol: Document 06/20/20 09:05 SP (Rec: 06/20/20 11:44 SP [id number]) Subjective Physical Therapy Visit Type Type Treatment Note Visit Start Time 09:05 Visit Stop Time 09:32 Total Visit Minutes 27 Notes MITTEN STITCHER assisted hygiene needs during tx while in standing and SBA for sit>supine for trunk guidence as needed. VItals taken during tx: supine: BP 108/69 HR 109 94% on RA, seated at EOB: BP 112/ 63 HR 116, Standin/60 HR 124. Number of CORK SLABS SAWYER Visits 2 Physical Therapy Visit Comments Patient Comments I am anemic and unsure if should be getting up with therapy but if ok with doctor I will do what I can. Therapy Pain Assessment Pain When Pain Assessed During Mobility Pain Present Pain Present Pain Reported Location Right Hip Scale Used pain scale not identified Description With Movement Pain Behaviors Facial Grimacing,Guarding, Moaning,Wincing Pain Management Techniques Re-positioning,Timing of Activity with Medications M4 PT-IP Mobility and Gait Start: 06/19/20 08:21 Freq: NEEDED Status: Active Protocol: Document 06/20/20 09:05 SP (Rec: 06/20/20 11:44 SP [id number]) PT-Bed Mobility Assessment Supine to Sit Supine to Sit Maximum Assistance,1 Person Assistance,Head of Bed Elevated,Bedrails Sit to Supine Sit to Supine Moderate Assistance,1 Person Assistance,Bedrails Scooting Scooting to Edge of Bed Minimal Assistance PT-Transfer Assessment Sit to and From Stand Sit to and from Stand Maximum Assistance,1 Person Assistance,Use of Upper Extremities Equipment Transfer Assistive Device Gait Belt,Front Wheeled Walker Orthotic/Prosthetic Devices or Brace: No Transfers Transfer Destination Bed Transfer Technique sit to stand only at EOB w/ FWW Comments Mobility Comments CORK SLABS SAWYER got feedback from hospitalist for ability to mobilize pt but be cautious of low H& H. Physician stated ordered 2 units blood transfusion for assist. CORK SLABS SAWYER reported to nurse and patient ok to mobilize if tolerated and assessment of vitals for safety awareness. See vital above. Elevated supine> sitting Max A of 1 for RLE repositioning and pulling from therapist hand to assist trunk transition to sitting, scoot to EOB support from upper back due to leaning retro, self scooting using BUE on bed. Sit>stand Max A of 1 and very heavy use of BUE off bed then transition to stand, stood for 2-3 min while MITTEN STITCHER changed bedding and assist hygiene BM noted on sheets. Lateral side stepping at EOB R Mod A of 1 with self repositioning fWW, stand > sit Max A x1 with cuing for reaching back for safety. sit> supine Mod A of 1 for LE assist into bed and CGA of MITTEN STITCHER for safety trunk guidence, LE and pelvis repositioning self with cuing for centering in bed. Pt supine in bed, left with MITTEN STITCHER and nurse to assist dressing reapplication due to fell off buttocks during scoot forward at EOB. In future cautious of sacral shearing and bandaging awareness. Pt declined cold pack for assist pain control. Gait Assessment Gait Gait Assistance Required: Moderate Assistance,1 Person Assist Distance (Feet) 2 Able to Maintain Weight Bearing Status Yes During Gait Assistive Devices Assistive Device Gait Belt,Front Wheeled Walker Orthotic/Prosthetic Devices or Brace: No Gait Deviations General Gait Pattern Antalgic,Decreased Stride Length,Decreased Feet Clearance,Flexed Trunk,Lateral Trunk Lean,Step-to Gait Factors Limiting Gait Function Factors Limiting Gait Function Decreased Activity Tolerance, Decreased Sensation,Decreased Strength,Difficulty Following Directions,Limited Range of Motion,Pain,Poor Balance,Poor Safety Awareness Comments Gait Comments Side step 2 ft at bed side using FWW Mod A x1. May need FWW for mobility, has crutches and w/c for home use when safe to DC home but will defer to subacute rehab. Stair Climbing Assessment Comments Stair Climbing Comments Not assessed. Need to assess 1 step mgt for home enterance. PT-Balance Assessment Sitting Balance and Reactions Static Sitting Balance Ability Good Dynamic Sitting Balance Ability Fair Standing Balance and Reactions Static Standing Balance Ability Poor Dynamic Standing Balance Ability Poor Device Used FWW M5 PT-IP Objective Assessments Start: 06/19/20 08:21 Freq: NEEDED Status: Active Protocol: Document 06/19/20 12:30 AW (Rec: 06/19/20 13:03 AW [id number]) Orientation Orientation/Cognition Level of Alertness Confusional State Orientation Name,Month,Place,Situation Language Function Ability No Deficits Noted Safety Awareness Decreased Safety Awareness Memory Description Short Term Impaired Gross Range of Motion Lower Extremity ROM Assessment Right Impaired Strength Lower Extremity Strength Assessment Bilaterally Impaired Hip L 4/5; R 3-/5 Knee L 4/5; R 3/5 Ankle B 4-/5 Sensation Assessment Sensation Gross Sensation Right LE Impaired Proprioception (Position) Impaired Muscle Tone Muscle Tone WNL Yes M6 PT-IP Treatment Start: 06/19/20 08:21 Freq: NEEDED Status: Active Protocol: Document 06/20/20 09:05 SP (Rec: 06/20/20 11:44 SP [id number]) Physical Therapy Treatment Education Education Provided Weight Bearing Status,Safety M7 PT-IP Assessment and Plan Start: 06/19/20 08:21 Freq: NEEDED Status: Active Protocol: Document 06/20/20 09:05 SP (Rec: 06/20/20 11:44 SP [id number]) PT Summary Assessment and Plan Potential Rehabilitation Potential Good Status of Condition at Evaluation Evolving Summary Impairments Pain,ROM,Strength,Balance, Sensation,Cognition,Bed Mobility,Transfers,Gait, Activity Tolerance Progress Towards Goals Slow Progress due to Pain,Slow Progress due to Medical Issues,Slow Progress due to Activity Tolerance Assessment Summary Pt require Max A of 1 for all mobility and 2nd assist for standing hygiene using fWW. Therapy is recommending SNF rehab at this time for DC. Will continue to work with PT and progress as tolerated. Goals Bed Mobility Goal Standby Assistance Transfer Goal Contact Guard Assistance,Front Wheeled Walker Gait Goal Standby Assistance,Front Wheel Walker Gait Distance 75 Other Goals up/down one step with L rail CGA (ONLY if going home) Days to Meet Goals 10 Frequency of Treatment Frequency Of Treatment Twice a Day Treatment Plan Physical Therapy Treatment Plan Bed Mobility Training,Transfer Training,Gait Training, Therapeutic Exercise,Balance Retraining,Post Op Education, Discharge Planning,Hot or Cold Pack,Neuromuscular Re-ed Other Recommendations and Next Treatment bed mobility, transfers, Focus ambulation with FWW as able Recommendations To Nursing Amount of Assist Needed 2 Person Assist Discharge Recommendations PT Discharge Recommendations SNF Rehab Equipment Needed for Home Before defer to subacute rehab Discharge setting, may need FWW prior to DC home. Transportation Needs at Discharge Wheelchair/Cabulance
--- NOTE | 2020-06-20 13:22 | PC.NURSE ---
Day shift note: Patient awake, alert, and pleasantly cooperative. Skin warm and pale. S/P 1 unit of PRBCs, ended at 1230, no s/sx of transfusion reaction, afebrile, VSS. 2nd Unit initiated at 1310. Up OOB with PT this afternoon. Large BM this shift. Dressings to buttocks changed this shift with Allevyn. Waffle cushion in place. Aquacel dressings to right lateral hip/thigh, CDI. Excellent appetite. SCDs in place continuously while in bed. Prior to PRBC, HR 113-120 at rest. Post 1Unit of PRBCs HR 100-106. No C/O dizziness or SOB.
--- NOTE | 2020-06-20 14:56 | PT-IP ANOTE ---
Pt still received 2nd unit of blood and RN noted will probably be about 1 more hour until complete. Hold PT until tomorrow AM.
[2020-06-20] MEDS: OXYCODONE IR 5 MG TABLET PO ×2 (15:33→19:42)
--- NOTE | 2020-06-20 16:15 | OT.IP.TRT ---
Current Diagnoses Gangrene, not elsewhere classified (06/18/20) Displaced intertrochanteric fracture of right femur, initial encounter for closed fracture (06/18/20) Surgery Performed Operation Date: 06/18/20 17:00 Actual Procedures p Intramedullary Nailing Femur(Right) - Carlitos Betancourt MD Occupational Therapy Treatment Note M2 OT-IP Current Condition Start: 06/19/20 12:33 Freq: Status: Active Protocol: Document 06/19/20 12:34 CGR (Rec: 06/19/20 12:51 CGR [id number]) Occupational Therapy Current Condition Current Condition Evaluation Date 06/19/20 Treatment Diagnosis R hip fx s/p R cepalomedullary nailing Diagnosis Onset Date 06/18/20 Weight Bearing Status Weight Bearing Status Weight Bear as Tolerated M3 OT- IP Subjective and Pain Start: 06/19/20 12:33 Freq: Status: Active Protocol: Document 06/20/20 16:14 CGR (Rec: 06/20/20 16:15 CGR [id number]) OT- Subjective Occupational Therapy Visit Type Type Administrative Note Notes Attempted to see pt for OT services. Per nursing, pt likely to be complete on 2 units of blood around 3pm. Pt still receiving blood at 4pm. Discussed with patient and he is requesting to hold on OT services today. Will continue to follow.
[2020-06-20] MEDS: HYDROMORPHONE 0.5 MG INJ IV (20:40)
[2020-06-20] MEDS: SODIUM CHLORIDE 0.9% FLUSH 10 ML IV (20:41)
[2020-06-20] MEDS: OXYCODONE IR 10 MG TABLET PO (23:36)
[2020-06-21] VITALS (7 sets, daily range): BP systolic 121–153; BP diastolic 74–98; PULSE 88–105; RESP 16–19; TEMP 36.4–37.3; O2SAT 95–97
--- NOTE | 2020-06-21 01:03 | PC.NURSE ---
Addendum entered by Linda Perez R.N. 06/21/20 06:40: CIWA remains 0. Pt allowed several position changes thru the night. Addendum entered by Linda Perez R.N. 06/21/20 04:23: dressing on R hip intact w/small amount of shadow drainage. Dressing on sacral area w/moderate amount of serous drainage. Original Note: Pt agreeable to position changes. Reports he is using his IS and flutter device frequently although this RN has not witnessed such use. Pt awoke at 0100 after receiving 10mg oxycodone and was briefly disoriented. He was easily reoriented and when asked if he felt he was detoxing from ETOH he stated, No, I've done that before and I think I'm fine, I could just really use a beer. Pt was informed that medication was available to help him with detox symptoms if needed, he stated understanding. Current CIWA = 0. Will reassess frequently.
[2020-06-21 05:24] LABS: BUN Creatinine Ratio 18.4 (6-22); Blood Urea Nitrogen 7 mg/dL (9-20); Calcium 8.2 mg/dL (8.4-10.2); Carbon Dioxide 30 mmol/L (22-32); Chloride 93 mmol/L (98-107); Estimated Glomerular Filt Rate > 60.0 mL/min (>60); Glucose 114 mg/dL (80-110); HEMOLYSIS < 15 (0-50); Potassium 4.1 mmol/L (3.4-5.1); Sodium 125 mmol/L (137-145)
[2020-06-21 05:28] LABS: Add Manual Diff / Slide Review NO; Basophils Absolute Auto 0 /uL (0-100); Basophils Percent Auto 0.6 % (0-2); Eosinophils Absolute Auto 100 /uL (0-450); Eosinophils Percent Auto 2.4 % (2-4); Lymphocytes Absolute Auto 1000 /uL (1100-4500); Lymphocytes Percent Auto 19.3 % (25-40); Mean Corpuscular HGB Conc 34.6 % (30-36); Mean Corpuscular Hemoglobin 31.6 PG (26-34); Mean Corpuscular Volume 91.3 fL (80-100); Monocytes Absolute Auto 400 /uL (0-900); Monocytes Percent Auto 8.7 % (3-14); Neutrophils Absolute Auto 3500 /uL (1500-7000); Platelet Count 119 X10^3/uL (150-400); Red Cell Distribution Width 16.6 % (11.6-14.8); White Blood Cell Count 5.1 X10^3/uL (4.5-11.0)
--- NOTE | 2020-06-21 08:15 | P.PN_ITS ---
Subjective Subjective Date Patient Seen: 06/21/20 Time Patient Seen: 08:16 Interval history: POD#3 after ORIF of right hip fracture. He received 2 units of packed red blood cells yesterday for symptomatic acute blood loss anemia. His heart rate has dropped from 130s down to about 105, but is still elevated. Pain is manageable for him. He just got up to the side of the bed yesterday but nothing more. Exam Vital Signs (past 8 hours): - 06/21/20 03:00 06/21/20 07:55 Temperature 99.1 F 98.3 F Pulse Rate 105 H 101 H Respiratory Rate 18 16 Blood Pressure 153/98 H 145/83 H Pulse Oximetry 97 95 Oxygen Delivery Method Room Air Oxygen Flow Rate 0 Const Orientation: alert and oriented x3 Back/Spine/Pelvis Other: Mild drainage on top dressing. Remainder clear. Swelling going down the leg. Soft calf, easily wiggles toes. Objective Labs Result Diagrams: 06/21/20 05:05 06/21/20 05:05 Labs: Laboratory Results - last 24 hr 06/20/20 06/21/20 06/21/20 08:32 05:05 05:05 WBC 5.1 RBC 3.50 L Hgb 11.0 L Hct 32.0 L MCV 91.3 D MCH 31.6 MCHC 34.6 RDW 16.6 H Plt Count 119 L Neut % (Auto) 69.0 Lymph % (Auto) 19.3 L [place] % (Auto) 8.7 Eos % (Auto) 2.4 Baso % (Auto) 0.6 Neut # (Auto) 3500 Lymph # (Auto) 1000 L [place] # (Auto) 400 Eos # (Auto) 100 Baso # (Auto) 0 Sodium 125 L Potassium 4.1 Chloride 93 L Carbon Dioxide 30 BUN 7 L Creatinine 0.38 L Estimated GFR > 60.0 BUN/Creatinine Ratio 18.4 Glucose 114 H Calcium 8.2 L Blood Type O Positive Antibody Screen Negative Crossmatch See Detail [facility] Medical History Alcohol abuse History of pneumothorax Hypertension Surgical History History of hip surgery History of knee surgery Family History Brother Cancer Mother Alzheimer's dementia Social History household members: none Smoking Status: Current every day smoker alcohol intake: current Assessment & Plan Post-op Postoperative Procedures: Procedures Operation Date: 06/18/20 17:00 Actual Procedures Side Surgeon p Intramedullary Nailing Femur Right Carlitos Betancourt MD Status post ORIF of right hip. H&H improved after his transfusion although he still a little bit tachycardic. At this point he just needs ongoing mobilization with physical therapy Quality VTE Deep Vein Thrombosis/Pulmonary Embolism Present on Admission: No
[2020-06-21] MEDS: NICOTINE 7 MG PATCH TOP (09:12)
[2020-06-21] MEDS: guaiFENesin ER 600 MG TAB 1200 MG PO ×2 (09:13→20:39)
[2020-06-21] MEDS: MULTIVITAMIN 1 TABLET 1 TAB PO (09:13)
[2020-06-21] MEDS: ASPIRIN EC 81 MG TABLET PO ×2 (09:13→20:39)
[2020-06-21] MEDS: CALCIUM CARB/VIT D3 500/200 TABLET 1 EACH PO ×2 (09:13→16:54)
[2020-06-21] MEDS: FAMOTIDINE 20 MG TABLET PO ×2 (09:13→20:39)
[2020-06-21] MEDS: THIAMINE 100 MG TABLET PO (09:13)
[2020-06-21] MEDS: FOLIC ACID 1 MG TABLET PO (09:13)
[2020-06-21] MEDS: SODIUM CHLORIDE 0.9% FLUSH 10 ML IV ×2 (09:14→20:40)
[2020-06-21] MEDS: OXYCODONE IR 5 MG TABLET PO ×2 (09:30→15:35)
--- NOTE | 2020-06-21 11:07 | P.PN_ITS ---
Subjective Subjective Date Patient Seen: 06/21/20 Interval history: Pradip Barron is a 65-year-old male with a past medical history significant for hypertension, tobacco dependence, and alcohol dependence who presented to the ED via EMS with right hip pain due to intertrochanteric fracture. Patient is postop day 3. Right hip ORIF. He got transfused 2 units PRBC yesterday for symptomatic acute anemia related to hip fracture. Tachycardia has improved from 130 to low 100s. Pain is controlled with oral medications. He remains maximal assist with PT getting him out of bed. There has not been any signs of ETOH withdrawal. Exam Vital Signs (past 8 hours): - 06/21/20 07:55 06/21/20 09:24 Temperature 98.3 F Pulse Rate 101 H Respiratory Rate 16 Blood Pressure 145/83 H Pulse Oximetry 95 97 Oxygen Delivery Method Room Air Oxygen Flow Rate 0 Narrative Exam Narrative: General: Alert and cooperative male no acute distress Lungs: Coarse bilateral breath sounds, likely chronic associated with smoking Abdomen: Soft Extremities: Right thigh edema, hip dressing intact Neurological: Affect normal, speech normal Objective Labs Result Diagrams: 06/21/20 05:05 06/21/20 05:05 Labs: Laboratory Results - last 24 hr 06/20/20 06/21/20 06/21/20 08:32 05:05 05:05 WBC 5.1 RBC 3.50 L Hgb 11.0 L Hct 32.0 L MCV 91.3 D MCH 31.6 MCHC 34.6 RDW 16.6 H Plt Count 119 L Neut % (Auto) 69.0 Lymph % (Auto) 19.3 L [place] % (Auto) 8.7 Eos % (Auto) 2.4 Baso % (Auto) 0.6 Neut # (Auto) 3500 Lymph # (Auto) 1000 L [place] # (Auto) 400 Eos # (Auto) 100 Baso # (Auto) 0 Sodium 125 L Potassium 4.1 Chloride 93 L Carbon Dioxide 30 BUN 7 L Creatinine 0.38 L Estimated GFR > 60.0 BUN/Creatinine Ratio 18.4 Glucose 114 H Calcium 8.2 L Blood Type O Positive Antibody Screen Negative Crossmatch See Detail [facility] Medical History Alcohol abuse History of pneumothorax Hypertension Surgical History History of hip surgery History of knee surgery Family History Brother Cancer Mother Alzheimer's dementia Social History household members: none Smoking Status: Current every day smoker alcohol intake: current Assessment & Plan Assessment & Plan narrative: Pradip Barron is a 65-year-old male with a past medical history significant for hypertension, tobacco dependence, and alcohol dependence who presented to the ED via EMS with right hip pain due to intertrochanteric fracture. 1. Acute pathological right comminuted intertrochanteric femur fracture, acute, present on admission, active. -Patient presented after sustaining a ground level fall 10 days prior to admission with abrupt onset right hip pain and inability to ambulate. Patient was mobilizing using wheelchair at home. -Hip x-ray demonstrated comminuted right intertrochanteric femur fracture. -Consulted Orthopedic surgery, Dr. Betancourt, who performed ORIF. -Continue aspirin 81 mg twice daily for VTE prophylaxis and famotidine 20 mg twice daily for GI prophylaxis. -Continue calcium and vitamin-D3 supplementation. Patient will need to be treated for osteoporosis by orthopedic surgery or PCP. -continue PT and OT 2. Acute on chronic blood loss anemia, present on admit -patient has chronic iron deficiency anemia documented as far back as 2016 with unknown prior workup -transfuse 2 units PRBC for symptomatic anemia related to hip fracture, with improvement in tachycardia -consider outpatient upper and lower endoscopies for chronic anemia evaluation 3. Sacral decubitus ulcers with eschar, acute, present on admission. Active. -Patient presented with 7 cm x 6 cm sacral decubitus covered with black eschar and is unstageable. -Blood cultures x2 have no growth to date other than 1 bottle with coag-negative staph which represents skin contamination. -Consulted general surgery, Dr. Farias, who performed bedside debridement. Continue wound care per nursing. General surgery does not feel that sacral decubitus pressure ulcer is infected and have discontinued antibiotics (received vancomycin per pharmacist, levofloxacin and Zosyn). -Continue frequent turning, repositioning and offloading. 4. Hyponatremia, acute on chronic, present on admission. Active. -Secondary to chronic alcohol use, dehydration and poor nutritional intake. -Initial sodium 122. Sodium level slightly improved with IV fluid hydration and stable at 125 -NS discontinued 06/20 5. Alcohol dependence, chronic, present on admission. Stable. -Patient reports consuming 3 beers a day. Patient has history of alcohol withdrawal with delirium tremens but denies history of alcohol withdrawal s nelsonzure. -Alcohol level < 10 on admission. -Patient's CIWA score has remained low without evidence of acute withdrawal. -Continue folic acid 1 mg daily, thiamine 100 mg daily and multivitamin daily. -Counseled the patient on alcohol use and recommended cutting back or abstaining from alcohol. -Obtained echocardiogram which was unremarkable and did not demonstrate alcohol- induced cardiomyopathy. 6. Hypertension, chronic, present on admission. Stable. -Patient is not medically treated. -blood pressures have been normal since admission 7. Tobacco dependence, chronic, present on admission. Stable. -Patient reports he smokes 0.5 ppd every 3 days. -Continue Nicoderm patch daily to prevent nicotine withdrawal. -Counseled patient and recommended indefinite smoking cessation. 8. Severe chronic protein calorie malnutrition, present on admission. Stable. -BMI 20.6. Secondary due to physical immobility and chronic alcohol use as evidence by 12.2% unintentional weight loss in 3 months, meeting <50% EER in past 3 months, patient found on floor by EMS after suffering hip fracture and had been using wheelchair for weeks prior due to weakness, imaging showing diffuse osteopenia, and sacral decubitus ulcers with eschar. -Consulted dietitian appreciate her time and recommendations. -Patient is high risk of infection, surgical complication, morbidity and mortality due to poor nutritional status with poor ability to heal. -received 1 g IV magnesium for serum magnesium level 1.5 Code status: Full code, patient designates Krupa Iniguez to be his surrogate decision maker. VTE prophylaxis: ASA, compression stockings Disposition: Patient is stable to discharge to senior living for rehab. Awaiting insurance authorization. Quality VTE Deep Vein Thrombosis/Pulmonary Embolism Present on Admission: No
--- NOTE | 2020-06-21 11:12 | PT.IPTN ---
Current Diagnoses Gangrene, not elsewhere classified (06/18/20) Displaced intertrochanteric fracture of right femur, initial encounter for closed fracture (06/18/20) Surgery Performed Operation Date: 06/18/20 17:00 Actual Procedures p Intramedullary Nailing Femur(Right) - Carlitos Betancourt MD Physical Therapy Treatment Note M2 PT-IP Current Condition Start: 06/19/20 08:21 Freq: NEEDED Status: Active Protocol: Document 06/21/20 10:47 MA (Rec: 06/21/20 11:48 MA [id number]) Physical Therapy Current Condition Current Condition Evaluation Date 06/19/20 Treatment Diagnosis R displaced IT fracture s/p CMN; sacral PI; difficulty in walking Onset Date 06/07/20 Precautions Other Precautions caution with sacral PI to avoid shear forces Weight Bearing Status Weight Bearing Status Weight Bear as Tolerated M3 PT-IP Subjective Start: 06/19/20 08:21 Freq: NEEDED Status: Active Protocol: Document 06/21/20 10:47 MA (Rec: 06/21/20 11:48 MA [id number]) Subjective Physical Therapy Visit Type Type Treatment Note Visit Start Time 10:47 Visit Stop Time 11:12 Total Visit Minutes 25 Notes INDUCTION MACHINE SETTER and nurse changing sacral bandage upon standing Physical Therapy Visit Comments Patient Comments I'm not so sure I can stand, but if I need to I can try Therapy Pain Assessment Pain When Pain Assessed During Mobility Pain Present Pain Present Pain Reported Location Right Hip Intensity 6 Scale Used Numeric (0 - 10) Description With Movement Pain Behaviors Calling Out,Facial Grimacing, Moaning,Wincing Pain Management Techniques Re-positioning,Timing of Activity with Medications M4 PT-IP Mobility and Gait Start: 06/19/20 08:21 Freq: NEEDED Status: Active Protocol: Document 06/21/20 10:47 MA (Rec: 06/21/20 11:48 MA [id number]) PT-Bed Mobility Assessment Supine to Sit Supine to Sit Minimal Assistance,1 Person Assistance,Head of Bed Elevated PT-Transfer Assessment Sit to and From Stand Sit to and from Stand Minimal Assistance,1 Person Assistance,Use of Upper Extremities Equipment Transfer Assistive Device Gait Belt,Front Wheeled Walker Orthotic/Prosthetic Devices or Brace: No Transfers Transfer Destination Bed,Chair Transfer Technique Stand Step Pivot Transfer Ability Level of Assist Minimal Assistance,1 Person Assistance Comments Mobility Comments Pt able to go from supine<>sit with HOB elevated MinAx1 pulling up on therapists hand and then Min Ax1 for RLE management. Used urinal while seated EOB, CGA. Pt able to clean himself off and had good dynamic seated balance. Sit<> stand with FWW Min Ax1 with 6/ 10 pain noted in R hip upon standing. Gait Assessment Gait Gait Assistance Required: Minimum Assistance,1 Person Assist Distance (Feet) 20 Able to Maintain Weight Bearing Status Yes During Gait Assistive Devices Assistive Device Gait Belt,Front Wheeled Walker Orthotic/Prosthetic Devices or Brace: No Gait Deviations General Gait Pattern Antalgic,Decreased Stride Length,Decreased Feet Clearance,Flexed Trunk,Step-to Gait Factors Limiting Gait Function Factors Limiting Gait Function Decreased Activity Tolerance, Decreased Sensation,Decreased Strength,Difficulty Following Directions,Limited Range of Motion,Pain,Poor Balance,Poor Safety Awareness Comments Gait Comments Pt was able to balance in stationary standing CGA while nursing changed sacral bandages. Pt then walked with FWW to window 5 feet, working on [employer] standing balance CGA at window while pt rummaged through his stuff to find his wallet. Pt then ambulated to door and back to room chair 15 feet CGA with bouts of Min A for walker control. Educated pt on turning toward L side for safety. Mod A for stand>sit in room chair due to pain in R hip when flexing to 90 degrees , pt throwing himself retroly and calling out in pain. After brief rest break, Pt able to perform 10 heel raises. Pt can complete full LAQ on LLE but unable to fully extend RLE due to pain. Pt requested rest and TRACER BULLET CHARGING MACHINE OPERATOR left pt with INDUCTION MACHINE SETTER for sponge bath. Stair Climbing Assessment Comments Stair Climbing Comments Not assessed. At this time, pt will d/c to SNF tomorrow. If d/c is changed, will need to complete 1 step with L rail for home mgt. PT-Balance Assessment Sitting Balance and Reactions Static Sitting Balance Ability Good Dynamic Sitting Balance Ability Good Standing Balance and Reactions Static Standing Balance Ability Good Dynamic Standing Balance Ability Fair Device Used FWW M5 PT-IP Objective Assessments Start: 06/19/20 08:21 Freq: NEEDED Status: Active Protocol: Document 06/19/20 12:30 AW (Rec: 06/19/20 13:03 AW [id number]) Orientation Orientation/Cognition Level of Alertness Confusional State Orientation Name,Month,Place,Situation Language Function Ability No Deficits Noted Safety Awareness Decreased Safety Awareness Memory Description Short Term Impaired Gross Range of Motion Lower Extremity ROM Assessment Right Impaired Strength Lower Extremity Strength Assessment Bilaterally Impaired Hip L 4/5; R 3-/5 Knee L 4/5; R 3/5 Ankle B 4-/5 Sensation Assessment Sensation Gross Sensation Right LE Impaired Proprioception (Position) Impaired Muscle Tone Muscle Tone WNL Yes M6 PT-IP Treatment Start: 06/19/20 08:21 Freq: NEEDED Status: Active Protocol: Document 06/21/20 10:47 MA (Rec: 06/21/20 11:48 MA [id number]) Physical Therapy Treatment Exercises Exercises Heel Slides Education Education Provided Weight Bearing Status,Safety Other Treatments Other Treatment Performed Educated pt on turning toward LLE for safety. Pt then showed carryover, turning toward L to sit in chair M7 PT-IP Assessment and Plan Start: 06/19/20 08:21 Freq: NEEDED Status: Active Protocol: Document 06/21/20 10:47 MA (Rec: 06/21/20 11:48 MA [id number]) PT Summary Assessment and Plan Potential Rehabilitation Potential Good Status of Condition at Evaluation Evolving Summary Impairments Pain,ROM,Strength,Balance, Sensation,Cognition,Bed Mobility,Transfers,Gait, Activity Tolerance Progress Towards Goals Slow Progress due to Pain,Slow Progress due to Medical Issues,Slow Progress due to Activity Tolerance Assessment Summary Pt requiring Min A or CGA for all mobility today showing great improvement from previous session. He is A&Ox3, but is unable to correctly state where he is currently. Throughout session, pt makes statements that are incorrect or seemingly random with nurse stating he often does not make much sense. Nures present for dressing changes, INDUCTION MACHINE SETTER present throughout session changing bed sheets. Discussed safety of turing toward stronger side-LLE. Pt showing good carryover and turning toward LLE when sitting down. Pt needed Mod A while going from standing>seated in chair due to pain and LOB throwing weight backwards into chair. In chair, pt states he has been doing his ankle pumps in bed but he has trouble with RLE for quad sets. Performed seated heel raises x10, pt unable to count up to 10 skipping several numbers and then starting to count backwards. Pt requested break so TRACER BULLET CHARGING MACHINE OPERATOR left pt in chair with INDUCTION MACHINE SETTER for sponge bath and gown change. Goals Bed Mobility Goal Standby Assistance Transfer Goal Contact Guard Assistance,Front Wheeled Walker Gait Goal Standby Assistance,Front Wheel Walker Gait Distance 75 Other Goals up/down one step with L rail CGA (ONLY if going home) Days to Meet Goals 10 Frequency of Treatment Frequency Of Treatment Twice a Day Treatment Plan Physical Therapy Treatment Plan Bed Mobility Training,Transfer Training,Gait Training, Therapeutic Exercise,Balance Retraining,Post Op Education, Discharge Planning,Hot or Cold Pack,Neuromuscular Re-ed Other Recommendations and Next Treatment bed mobility, transfers, Focus ambulation with FWW as able. check carryover of training turning on LLE for safety. Recommendations To Nursing Amount of Assist Needed 2 Person Assist Discharge Recommendations PT Discharge Recommendations SNF Rehab Equipment Needed for Home Before defer to subacute rehab Discharge setting, may need FWW prior to DC home. Transportation Needs at Discharge Wheelchair/Cabulance
--- NOTE | 2020-06-21 13:09 | PC.NURSE ---
Patient is a&ox3, he has multiple skin issues, please see under physical assessment. Dressings changed to decub ulcers to buttocks x2. 2x2 [address] under larger dressing, both allevyns applied. Patient has not had a stool yet this shift, he has been having some loose stool and did refuse his stool softners. Aquacel dressings to r.hip both cdi. Patient does have dry and flakey skin. Given a bed bath. He worked with physical therapy and was able to walk to the window. He is a 1-2 pa with walker and gaitbelt. Given 1 oxycodone with good pain control. Patient sat up in the chair for a couple of hours and is now going to be put back to bed.
--- NOTE | 2020-06-21 13:34 | PT.IPTN ---
Current Diagnoses Gangrene, not elsewhere classified (06/18/20) Displaced intertrochanteric fracture of right femur, initial encounter for closed fracture (06/18/20) Surgery Performed Operation Date: 06/18/20 17:00 Actual Procedures p Intramedullary Nailing Femur(Right) - Carlitos Betancourt MD Physical Therapy Treatment Note M2 PT-IP Current Condition Start: 06/19/20 08:21 Freq: NEEDED Status: Active Protocol: Document 06/21/20 14:12 MA (Rec: 06/21/20 14:12 MA [id number]) Physical Therapy Current Condition Current Condition Evaluation Date 06/19/20 Treatment Diagnosis R displaced IT fracture s/p CMN; sacral PI; difficulty in walking Onset Date 06/07/20 Precautions Other Precautions caution with sacral PI to avoid shear forces Weight Bearing Status Weight Bearing Status Weight Bear as Tolerated M3 PT-IP Subjective Start: 06/19/20 08:21 Freq: NEEDED Status: Active Protocol: Document 06/21/20 14:00 MA (Rec: 06/21/20 14:11 MA [id number]) Subjective Physical Therapy Visit Type Type Treatment Note Visit Start Time 13:20 Visit Stop Time 13:34 Total Visit Minutes 14 Notes OT requesting therapy keep pt in chair so he is more motivated to work today Physical Therapy Visit Comments Patient Comments Pt willing to walk in hallway this afternoon Therapy Pain Assessment Pain When Pain Assessed During Mobility Pain Present Pain Present Pain Reported Location Right Hip Intensity 7 Scale Used Numeric (0 - 10) Description With Movement Pain Behaviors Calling Out,Facial Grimacing, Moaning,Wincing Pain Management Techniques Re-positioning,Timing of Activity with Medications M4 PT-IP Mobility and Gait Start: 06/19/20 08:21 Freq: NEEDED Status: Active Protocol: Document 06/21/20 14:00 MA (Rec: 06/21/20 14:11 MA [id number]) PT-Transfer Assessment Sit to and From Stand Sit to and from Stand Minimal Assistance,1 Person Assistance Equipment Transfer Assistive Device Gait Belt,Front Wheeled Walker Orthotic/Prosthetic Devices or Brace: No Transfers Transfer Destination Chair Transfer Technique Stand Step Pivot Transfer Ability Level of Assist Minimal Assistance,1 Person Assistance Comments Mobility Comments Pt able to sit<>stand from chair Min A with FWW. Upon standing, pt ambulated 80 feet from room chair out into hallway and back to chair CGA. Gait Assessment Gait Gait Assistance Required: Contact Guard Assist,1 Person Assist Distance (Feet) 80 Able to Maintain Weight Bearing Status Yes During Gait Assistive Devices Assistive Device Gait Belt,Front Wheeled Walker Orthotic/Prosthetic Devices or Brace: No Gait Deviations General Gait Pattern Antalgic,Decreased Stride Length,Decreased Feet Clearance,Flexed Trunk,Step-to Gait Factors Limiting Gait Function Factors Limiting Gait Function Decreased Activity Tolerance, Decreased Sensation,Decreased Strength,Difficulty Following Directions,Limited Range of Motion,Pain,Poor Balance,Poor Safety Awareness Comments Gait Comments [facility] F[facility]. He was able to remember to turn toward LLE from this mornings therapy session. Stair Climbing Assessment Comments Stair Climbing Comments Not assessed. At this time, pt will d/c to SNF tomorrow. If d/c is changed, will need to complete 1 step with L rail for home mgt. PT-Balance Assessment Sitting Balance and Reactions Static Sitting Balance Ability Good Dynamic Sitting Balance Ability Good Standing Balance and Reactions Static Standing Balance Ability Good Dynamic Standing Balance Ability Fair Device Used FWW M5 PT-IP Objective Assessments Start: 06/19/20 08:21 Freq: NEEDED Status: Active Protocol: Document 06/19/20 12:30 AW (Rec: 06/19/20 13:03 AW [id number]) Orientation Orientation/Cognition Level of Alertness Confusional State Orientation Name,Month,Place,Situation Language Function Ability No Deficits Noted Safety Awareness Decreased Safety Awareness Memory Description Short Term Impaired Gross Range of Motion Lower Extremity ROM Assessment Right Impaired Strength Lower Extremity Strength Assessment Bilaterally Impaired Hip L 4/5; R 3-/5 Knee L 4/5; R 3/5 Ankle B 4-/5 Sensation Assessment Sensation Gross Sensation Right LE Impaired Proprioception (Position) Impaired Muscle Tone Muscle Tone WNL Yes M6 PT-IP Treatment Start: 06/19/20 08:21 Freq: NEEDED Status: Active Protocol: Document 06/21/20 10:47 MA (Rec: 06/21/20 11:48 MA [id number]) Physical Therapy Treatment Exercises Exercises Heel Slides Education Education Provided Weight Bearing Status,Safety Other Treatments Other Treatment Performed Educated pt on turning toward LLE for safety. Pt then showed carryover, turning toward L to sit in chair M7 PT-IP Assessment and Plan Start: 12/24/20 08:21 Freq: NEEDED Status: Active Protocol: Document 06/21/20 14:00 MA (Rec: 06/21/20 14:11 MA [id number]) PT Summary Assessment and Plan Potential Rehabilitation Potential Good Status of Condition at Evaluation Evolving Summary Impairments Pain,ROM,Strength,Balance, Sensation,Cognition,Bed Mobility,Transfers,Gait, Activity Tolerance Progress Towards Goals Slow Progress due to Pain,Slow Progress due to Medical Issues,Slow Progress due to Activity Tolerance Assessment Summary Pt requiring only CGA this afternoon and was able to walk increased distance of 80 feet out into hallway. He turned to the correct side during gait stating, always turn to the L, I remember from this morning. Pt returned to chair with all needs in reach. OT to work with pt upon completion of PT this afternoon. Goals Bed Mobility Goal Standby Assistance Transfer Goal Contact Guard Assistance,Front Wheeled Walker Gait Goal Standby Assistance,Front Wheel Walker Gait Distance 75 Other Goals up/down one step with L rail CGA (ONLY if going home) Days to Meet Goals 10 Frequency of Treatment Frequency Of Treatment Twice a Day Treatment Plan Physical Therapy Treatment Plan Bed Mobility Training,Transfer Training,Gait Training, Therapeutic Exercise,Balance Retraining,Post Op Education, Discharge Planning,Hot or Cold Pack,Neuromuscular Re-ed Other Recommendations and Next Treatment bed mobility, transfers, Focus ambulation with FWW Recommendations To Nursing Amount of Assist Needed 2 Person Assist Discharge Recommendations PT Discharge Recommendations SNF Rehab Equipment Needed for Home Before defer to subacute rehab Discharge setting, may need FWW prior to DC home. Transportation Needs at Discharge Wheelchair/Cabulance
--- NOTE | 2020-06-21 14:15 | OT.IP.TRT ---
Current Diagnoses Gangrene, not elsewhere classified (06/18/20) Displaced intertrochanteric fracture of right femur, initial encounter for closed fracture (06/18/20) Surgery Performed Operation Date: 06/18/20 17:00 Actual Procedures p Intramedullary Nailing Femur(Right) - Carlitos Betancourt MD Occupational Therapy Treatment Note M2 OT-IP Current Condition Start: 06/19/20 12:33 Freq: Status: Active Protocol: Document 06/19/20 12:34 CGR (Rec: 06/19/20 12:51 CGR [id number]) Occupational Therapy Current Condition Current Condition Evaluation Date 06/19/20 Treatment Diagnosis R hip fx s/p R cepalomedullary nailing Diagnosis Onset Date 06/18/20 Weight Bearing Status Weight Bearing Status Weight Bear as Tolerated M3 OT- IP Subjective and Pain Start: 06/19/20 12:33 Freq: Status: Active Protocol: Document 06/21/20 14:25 CGR (Rec: 06/21/20 14:31 CGR [id number]) OT- Subjective Occupational Therapy Visit Type Type Progress Note Visit Start Time 13:49 Visit Stop Time 14:15 Total Visit Minutes 26 OT Pain Assessment Pain When Pain Assessed At Rest Pain Present Pain Present Pain Reported Location Right Hip Scale Used did not rate Management Techniques Distraction,Modification of Treatment,Re-positioning M4 OT- IP ADL's Start: 06/19/20 12:33 Freq: Status: Active Protocol: Document 06/21/20 14:25 CGR (Rec: 06/21/20 14:31 CGR [id number]) OT ADL-Grooming Comments OT Grooming Comments Pt declined OT ADL-Oral Care Comments Oral Care Comments Pt declined OT ADL-Dressing General Eval Lower Body Dressing Ability Total Assistance Areas Needing Assistance Socks OT ADL-Toileting General Evaluation Toileting Ability Standby Assistance Devices Toileting Assistive Devices Grab Bars Comments OT Toileting Comments for pericare seated on toilet. See below for transfer information. OT ADL-Bathing Comments OT Bathing Comments Not performed M5 OT- IP IADL's Start: 06/19/20 12:33 Freq: Status: Active Protocol: Document 06/19/20 12:34 CGR (Rec: 06/19/20 12:51 CGR [id number]) OT-Instrumental Activities of Daily Living Deficits IADL Deficits Identified Deficits Home Safety Awareness Awareness of Need for Assistance at Home Decreased Awareness Ability to Problem Solve Emergency Able to Problem Solve Situations M6 OT- IP Functional Cognition Start: 06/19/20 12:33 Freq: Status: Active Protocol: Document 06/19/20 12:34 CGR (Rec: 06/19/20 12:51 CGR [id number]) Cognitive Factors Limiting Selfcare Function Cognitive Ability Level of Alertness Alert Patient Orientation Name,Place,Situation Attention Span Ability Capable of Focused Attention, Capable of Sustained Attention Ability to Follow Commands Able to Follow One Step Commands with Increased Time, Able to Follow One Step Commands with Repetition Cognitive Comments Cognitive Assessment Comments Pt appears to need extra vc d/ t pain. OT- Vision and Hearing OT- Hearing Assessment OT- Hearing Assessment WFL OT- Vision Assessment Visual Acuity WFL Visual Attentiveness WFL Occular Pursuits WFL M7 OT- IP Mobility and Balance Start: 06/19/20 12:33 Freq: Status: Active Protocol: Document 06/21/20 14:25 CGR (Rec: 06/21/20 14:31 CGR [id number]) OT- Bed Mobility Assessment Sit to Supine Sit to Supine Assist Moderate Assistance,Maximum Assistance,1 Person Assistance OT-Transfer Assessment Sit to and From Stand Sit to and from Stand Minimal Assistance,Moderate Assistance Transfers Transfer Ability Contact Guard Assistance Technique Transfer Destination Bed,Chair,Toilet Transfer Technique Stand Step Pivot Devices Transfer Assistive Devices Gait Belt,Front Wheeled Walker Comments Mobility Comments Pt needs some assist and extra time for sit to stand and had difficulty with stand to sit on toilet. Pt ambulates with CGA on this date. Bed mobility with difficulty and increased pain. OT- Balance Assessment Sitting Balance and Reactions Static Sitting Balance Ability Fair Dynamic Sitting Balance Ability Fair M8 OT- IP Objective Assessments Start: 06/19/20 12:33 Freq: Status: Active Protocol: Document 06/19/20 12:34 CGR (Rec: 06/19/20 12:51 CGR [id number]) OT Gross Range of Motion Upper Extremity Range of Motion Assessment Within Functional Limits OT Strength Upper Extremity Strength Assessment Within Functional Limits Comments Strength Comments grossly 4/5 OT- Coordination Assessment Upper Extremity Finger to Nose Test Within Functional Limits Finger Tapping Test Within Functional Limits OT-Muscle Tone Assessment Muscle Tone WNL Yes OT Sensation Assessment Edema Edema Present Edema Comments Noted swelling to the RLE M9 OT- IP Assessment and Plan Start: 06/19/20 12:33 Freq: Status: Active Protocol: Document 06/21/20 14:25 CGR (Rec: 06/21/20 14:31 CGR [id number]) OT Summary Assessment and Plan Potential Rehabilitation Potential Good Analytic Complexity at Evaluation Moderate Summary OT Impairments Pain,Strength,Balance, Functional Mobility,Grooming, Dressing,Toileting,Bathing, Toilet Transfers,Shower Transfers,Activity Tolerance Progress Towards Goals Slow Progress due to Pain Assessment Summary Pt presents as a moderate complexity evaluation s/p admit with R hip fx. Pt is progressing with therapy and although delays activity, pt is agreeable to whatever is asked of him. Pt ambulated to bathroom for toilet transfer and simulation of toileting with extra time and then returned to bed at end of session. Call button within reach and all needs at time met. Discharge recommendations still for SNF. Goals Grooming Goal Independent Dressing Goal Independent Toileting Goal Independent Bathing Goal Independent Toilet Transfer Goal Independent Shower Transfer Goal Independent Days to Meet Goals 20 Frequency of Treatment Frequency Of Treatment Once a Day Treatment Plan OT Treatment Plan ADL Training,Functional Mobility,Patient/Family Education,Discharge Planning Other Treatment Recommendations and Next ADLs seated, bsc or toilet Treatment Focus transfer. Discharge Recommendations OT Discharge Recommendations SNF Rehab Home Equipment Needs TBD Transportation Needs at Discharge Wheelchair/Cabulance
[2020-06-21] MEDS: DOCUSATE 100 MG CAPSULE PO (20:39)
[2020-06-21] MEDS: CODEINE/ACETAMINOPHEN 30/300 TABLET 1 TAB PO (20:40)
[2020-06-22 04:35] VITALS: BP 143/94; PULSE 98; RESP 16; TEMP 37.1; O2SAT 97
[2020-06-22 05:16] LABS: BUN Creatinine Ratio 22.7 (6-22); Blood Urea Nitrogen 10 mg/dL (9-20); Calcium 8.7 mg/dL (8.4-10.2); Carbon Dioxide 31 mmol/L (22-32); Chloride 95 mmol/L (98-107); Estimated Glomerular Filt Rate > 60.0 mL/min (>60); Glucose 119 mg/dL (80-110); HEMOLYSIS < 15 (0-50); Potassium 3.9 mmol/L (3.4-5.1); Sodium 128 mmol/L (137-145)
--- NOTE | 2020-06-22 05:18 | PC.NURSE ---
CIWA 0. No c/o of pain this shift. Pt allowed a few position changes and slept very well.
--- NOTE | 2020-06-22 07:48 | P.PN_ITS ---
Subjective Subjective Date Patient Seen: 06/22/20 Time Patient Seen: 07:48 Interval history: He is doing well. He reports he was up and walk in the hallway yesterday with physical therapy. Exam Vital Signs (past 8 hours): - 06/22/20 04:35 Temperature 98.7 F Pulse Rate 98 H Respiratory Rate 16 Blood Pressure 143/94 H Pulse Oximetry 97 Oxygen Delivery Method Room Air Oxygen Flow Rate 0 Const Orientation: alert and oriented x3 Extrem Other: Right hip mild unchanged drainage on the upper dressing. Soft calf, easily wiggles toes. Objective Labs Result Diagrams: 06/21/20 05:05 06/22/20 04:55 Labs: Laboratory Results - last 24 hr 06/22/20 04:55 Sodium 128 L Potassium 3.9 Chloride 95 L Carbon Dioxide 31 BUN 10 Creatinine 0.44 L Estimated GFR > 60.0 BUN/Creatinine Ratio 22.7 H Glucose 119 H Calcium 8.7 PFSH Medical History Alcohol abuse History of pneumothorax Hypertension Surgical History History of hip surgery History of knee surgery Family History Brother Cancer Mother Alzheimer's dementia Social History household members: none Smoking Status: Current every day smoker alcohol intake: current Assessment & Plan Post-op Postoperative Procedures: Procedures Operation Date: 06/18/20 17:00 Actual Procedures Side Surgeon p Intramedullary Nailing Femur Right Carlitos Betancourt MD He is doing well. Continue to mobilize with physical therapy. [facility]. Follow up with Dr Betancourt in Orthopedics in 1.5 weeks. Treatment of sacral decubitus ulcer per General surgery and wound care. Quality VTE Deep Vein Thrombosis/Pulmonary Embolism Present on Admission: No
[2020-06-22 08:45] VITALS: BP 120/75; PULSE 94; RESP 16; TEMP 36.4; O2SAT 97
[2020-06-22] MEDS: FAMOTIDINE 20 MG TABLET PO ×2 (08:58→21:00)
[2020-06-22] MEDS: FOLIC ACID 1 MG TABLET PO (08:58)
[2020-06-22] MEDS: NICOTINE 7 MG PATCH TOP (08:58)
[2020-06-22] MEDS: CODEINE/ACETAMINOPHEN 30/300 TABLET 1 TAB PO ×4 (08:58→21:01)
[2020-06-22] MEDS: CALCIUM CARB/VIT D3 500/200 TABLET 1 EACH PO ×2 (08:58→16:47)
[2020-06-22] MEDS: MULTIVITAMIN 1 TABLET 1 TAB PO (08:58)
[2020-06-22] MEDS: THIAMINE 100 MG TABLET PO (08:58)
[2020-06-22] MEDS: polyethylene glycoL 3350 17 GM POWD.PACK PO (08:58)
[2020-06-22] MEDS: DOCUSATE 100 MG CAPSULE PO ×2 (08:58→21:00)
[2020-06-22] MEDS: guaiFENesin ER 600 MG TAB 1200 MG PO ×2 (08:58→21:00)
[2020-06-22] MEDS: ASPIRIN EC 81 MG TABLET PO ×2 (08:58→21:00)
[2020-06-22] MEDS: SODIUM CHLORIDE 0.9% FLUSH 10 ML IV ×2 (08:59→22:15)
--- NOTE | 2020-06-22 09:59 | CM.DPC ---
Addendum entered by KATT Valentine 06/22/20 14:19: ADD: Return call from November at [facility], reviewed patient and feel they could likely meet his needs but will need to discuss in the AM with [facility] admins to confirm they can accept and will then work on insurance auth for patient. Per RN, spoke to pt's contact Gm Serrato and updated him on pt status and potential for SNF but not a confirmed plan. BF Addendum entered by KATT Valentine 06/22/20 10:48: ADD: Return call from [facility] in [place], they are not contracted with [facility]. SW spoke to November at [facility] and she is willing to review and could potentially work on a [id number] with [facility] if they feel they can meet pt's needs. Will review to determine. BF Original Note: Late Entry for 06/21/20: SNF Planning Per MD, pt remains medically stable to d/c to SNF but not safe for d/c home at this time and awaiting SNF acceptance. Per PT/OT, pt still remains 2PA for mobility and ADL's and recommending SNF as pt [place] alone [place] and not safe for home alone at this time. AYALA followed up on previously faxed SNF referrals: [facility]- no [facility]- no [facility]- not accepting new admissions at this time [facility]- left message requesting call back [facility]- left msg requesting call back [facility]- not accepting new admissions until after 06/23/20 [facility]- not contracted with [facility], only accepting COVID + pts SW continued SNF referrals today 06/22/20 to the following in [facility]: [facility]-no admit staff in today [facility]- no admit staff in today [facility]- not contracted with [facility]- left msg on admissions cell [place]- left msg [facility]- left msg AYALA staffed in [facility] with MD and staff that [facility] is a barrier to acceptance at SNF and COVID 19 remains a barrier to the amount of SNF's able to accept right now. PT/OT will continue to work with pt 2x day on strengthening. AYALA called [facility] with pt's primary contact/support person Gm Means who works closely with pt on community resources and supports and left msg (they are only open M-F) requesting call back to further problem solve additional supports at home or in the community if SNF cannot be secured. Plan: SW will continue to follow up on previous SNF referrals and SNF's in the area towards attempting SNF placement and coordination with [facility] staff to determine if any other options are available for safe d/c plan. KATT Valentine
--- NOTE | 2020-06-22 10:54 | PT.IPTN ---
Current Diagnoses Gangrene, not elsewhere classified (06/18/20) Displaced intertrochanteric fracture of right femur, initial encounter for closed fracture (06/18/20) Surgery Performed Operation Date: 06/18/20 17:00 Actual Procedures p Intramedullary Nailing Femur(Right) - Carlitos Betancourt MD Physical Therapy Treatment Note M2 PT-IP Current Condition Start: 06/19/20 08:21 Freq: NEEDED Status: Active Protocol: Document 06/21/20 14:12 MA (Rec: 06/21/20 14:12 MA [id number]) Physical Therapy Current Condition Current Condition Evaluation Date 06/19/20 Treatment Diagnosis R displaced IT fracture s/p CMN; sacral PI; difficulty in walking Onset Date 06/07/20 Precautions Other Precautions caution with sacral PI to avoid shear forces Weight Bearing Status Weight Bearing Status Weight Bear as Tolerated M3 PT-IP Subjective Start: 06/19/20 08:21 Freq: NEEDED Status: Active Protocol: Document 06/22/20 10:38 CLB (Rec: 06/22/20 11:37 CLB [id number]) Subjective Physical Therapy Visit Type Type Treatment Note Visit Start Time 10:38 Visit Stop Time 10:54 Total Visit Minutes 16 Notes ELECTRICAL DESIGNER present to assist pt with pericare and shower. Physical Therapy Visit Comments Patient Comments Pt willing to get OOB for shower. Therapy Pain Assessment Pain When Pain Assessed During Mobility Pain Present Pain Present Pain Reported Location Right Hip Intensity 7 Scale Used Numeric (0 - 10) Description With Movement Pain Behaviors Facial Grimacing,Holding Area, Wincing Pain Management Techniques Re-positioning,Timing of Activity with Medications M4 PT-IP Mobility and Gait Start: 06/19/20 08:21 Freq: NEEDED Status: Active Protocol: Document 06/22/20 10:38 CLB (Rec: 06/22/20 11:37 CLB [id number]) PT-Bed Mobility Assessment Supine to Sit Supine to Sit Minimal Assistance,1 Person Assistance,Head of Bed Elevated Scooting Scooting to Edge of Bed Contact Guard Assistance PT-Transfer Assessment Sit to and From Stand Sit to and from Stand Minimal Assistance,1 Person Assistance,Use of Upper Extremities Equipment Transfer Assistive Device Gait Belt,Front Wheeled Walker Orthotic/Prosthetic Devices or Brace: No Transfer Ability Level of Assist Minimal Assistance,1 Person Assistance Comments Mobility Comments Pt required Min A for rolling to right to remove bed jorge and assist with pericare by ELECTRICAL DESIGNER. Pt required Min A for supine- sit then CGA for scooting to EOB. Pt required cues for proper positioning of BLE before standing and cues for pushing off of bed for safety. Pt required Min A to full stand then CGA ~15ft to shower . Pt able to doff gown and remained standing in shower. Pt left in shower with ELECTRICAL DESIGNER. Gait Assessment Gait Gait Assistance Required: Contact Guard Assist,1 Person Assist Distance (Feet) 15 Able to Maintain Weight Bearing Status Yes During Gait Assistive Devices Assistive Device Gait Belt,Front Wheeled Walker Orthotic/Prosthetic Devices or Brace: No Gait Deviations General Gait Pattern Antalgic,Decreased Stride Length,Decreased Feet Clearance,Flexed Trunk,Step-to Gait Factors Limiting Gait Function Factors Limiting Gait Function Decreased Activity Tolerance, Decreased Sensation,Decreased Strength,Difficulty Following Directions,Limited Range of Motion,Pain,Poor Balance,Poor Safety Awareness Comments Gait Comments Pt requires CGA with FWW during ambulation taking small step to gait pattern. Pt requires CGA at this time for safety. Stair Climbing Assessment Comments Stair Climbing Comments Not assessed. At this time, pt will d/c to SNF tomorrow. If d/c is changed, will need to complete 1 step with L rail for home mgt. PT-Balance Assessment Sitting Balance and Reactions Static Sitting Balance Ability Good Dynamic Sitting Balance Ability Good Standing Balance and Reactions Static Standing Balance Ability Good Dynamic Standing Balance Ability Fair Device Used FWW M5 PT-IP Objective Assessments Start: 06/19/20 08:21 Freq: NEEDED Status: Active Protocol: Document 06/19/20 12:30 AW (Rec: 06/19/20 13:03 AW [id number]) Orientation Orientation/Cognition Level of Alertness Confusional State Orientation Name,Month,Place,Situation Language Function Ability No Deficits Noted Safety Awareness Decreased Safety Awareness Memory Description Short Term Impaired Gross Range of Motion Lower Extremity ROM Assessment Right Impaired Strength Lower Extremity Strength Assessment Bilaterally Impaired Hip L 4/5; R 3-/5 Knee L 4/5; R 3/5 Ankle B 4-/5 Sensation Assessment Sensation Gross Sensation Right LE Impaired Proprioception (Position) Impaired Muscle Tone Muscle Tone WNL Yes M6 PT-IP Treatment Start: 06/19/20 08:21 Freq: NEEDED Status: Active Protocol: Document 06/21/20 10:47 MA (Rec: 06/21/20 11:48 MA [id number]) Physical Therapy Treatment Exercises Exercises Heel Slides Education Education Provided Weight Bearing Status,Safety Other Treatments Other Treatment Performed Educated pt on turning toward LLE for safety. Pt then showed carryover, turning toward L to sit in chair M7 PT-IP Assessment and Plan Start: 06/19/20 08:21 Freq: NEEDED Status: Active Protocol: Document 06/22/20 10:38 CLB (Rec: 06/22/20 11:37 CLB [id number]) PT Summary Assessment and Plan Potential Rehabilitation Potential Good Status of Condition at Evaluation Evolving Summary Impairments Pain,ROM,Strength,Balance, Sensation,Cognition,Bed Mobility,Transfers,Gait, Activity Tolerance Progress Towards Goals Slow Progress due to Pain,Slow Progress due to Medical Issues,Slow Progress due to Activity Tolerance Assessment Summary Pt is requiring Min A for bed mobility and sit-stand. Pt requires CGA w/FWW with ambulation for safety. Pt will benefit from SNF rehab before returning home to increase strength and activity tolerance for functional mobility. Goals Bed Mobility Goal Standby Assistance Transfer Goal Contact Guard Assistance,Front Wheeled Walker Gait Goal Standby Assistance,Front Wheel Walker Gait Distance 75 Other Goals up/down one step with L rail CGA (ONLY if going home) Days to Meet Goals 10 Frequency of Treatment Frequency Of Treatment Twice a Day Treatment Plan Physical Therapy Treatment Plan Bed Mobility Training,Transfer Training,Gait Training, Therapeutic Exercise,Balance Retraining,Post Op Education, Discharge Planning,Hot or Cold Pack,Neuromuscular Re-ed Other Recommendations and Next Treatment bed mobility, transfers, Focus ambulation with FWW Recommendations To Nursing Amount of Assist Needed 2 Person Assist Discharge Recommendations PT Discharge Recommendations SNF Rehab Equipment Needed for Home Before defer to subacute rehab Discharge setting, may need FWW prior to DC home. Transportation Needs at Discharge Wheelchair/Cabulance
--- NOTE | 2020-06-22 11:05 | P.PN_ITS ---
Subjective Subjective Date Patient Seen: 06/22/20 Interval history: Pradip Barron is a 65-year-old male with a past medical history significant for hypertension, tobacco dependence, and alcohol dependence who presented to the ED via EMS with right hip pain due to intertrochanteric fracture. Patient is postop day 4 s/p right hip ORIF. He was able to walk 70 ft with PT yesterday but requiring 2 person assist and PT [facility]. Exam Vital Signs (past 8 hours): - 06/22/20 04:35 06/22/20 08:45 Temperature 98.7 F 97.5 F L Pulse Rate 98 H 94 H Respiratory Rate 16 16 Blood Pressure 143/94 H 120/75 Pulse Oximetry 97 97 Oxygen Delivery Method Room Air Oxygen Flow Rate 0 Narrative Exam Narrative: General: Alert and cooperative male no acute distress Lungs: Coarse bilateral breath sounds, likely chronic associated with smoking Abdomen: Soft Extremities: Right thigh edema stable, hip dressing intact Neurological: Affect normal, speech normal Objective Labs Result Diagrams: 06/21/20 05:05 06/22/20 04:55 Labs: Laboratory Results - last 24 hr 06/22/20 04:55 Sodium 128 L Potassium 3.9 Chloride 95 L Carbon Dioxide 31 BUN 10 Creatinine 0.44 L Estimated GFR > 60.0 BUN/Creatinine Ratio 22.7 H Glucose 119 H Calcium 8.7 PFSH Medical History Alcohol abuse History of pneumothorax Hypertension Surgical History History of hip surgery History of knee surgery Family History Brother Cancer Mother Alzheimer's dementia Social History household members: none Smoking Status: Current every day smoker alcohol intake: current Assessment & Plan Assessment & Plan narrative: Pradip Barron is a 65-year-old male with a past medical history significant for hypertension, tobacco dependence, and alcohol dependence who presented to the ED via EMS with right hip pain due to intertrochanteric fracture. 1. Acute pathological right comminuted intertrochanteric femur fracture, acute, present on admission, active. -Patient presented after sustaining a ground level fall 10 days prior to admission with abrupt onset right hip pain and inability to ambulate. Patient was mobilizing using wheelchair at home. -Hip x-ray demonstrated comminuted right intertrochanteric femur fracture. -Consulted Orthopedic surgery, Dr. Betancourt, who performed ORIF. -Continue aspirin 81 mg twice daily for VTE prophylaxis and famotidine 20 mg twice daily for GI prophylaxis. -Continue calcium and vitamin-D3 supplementation. Patient will need to be treated for osteoporosis by orthopedic surgery or PCP. -continue PT and OT -Tylenol and Tylenol with codeine as needed for pain (patient requested Tylenol with codeine based on previous experience) 2. Acute on chronic blood loss anemia, present on admit -patient has chronic iron deficiency anemia documented as far back as 2015 with unknown prior workup -transfused 2 units PRBC for symptomatic anemia related to hip fracture, with improvement in tachycardia -consider outpatient upper and lower endoscopies for chronic anemia evaluation 3. Sacral decubitus ulcers with eschar, acute, unstageable, present on admission. Active. -Patient presented with 7 cm x 6 cm sacral decubitus covered with black eschar and is unstageable. -Blood cultures x2 have no growth to date other than 1 bottle with coag-negative staph which represents skin contamination. -Consulted general surgery, Dr. Farias, who performed bedside debridement. Continue wound care per nursing. General surgery does not feel that sacral decubitus pressure ulcer is infected and have discontinued antibiotics (received vancomycin per pharmacist, levofloxacin and Zosyn). -Continue frequent turning, repositioning and offloading. 4. Hyponatremia, acute on chronic, present on admission. Active. -Secondary to chronic alcohol use, dehydration and poor nutritional intake. -Initial sodium 122. Sodium level slightly improved with IV fluid hydration and stable at 125 -NS discontinued 06/20 5. Alcohol dependence, chronic, present on admission. Stable. -Patient reports consuming 3 beers a day. Patient has history of alcohol withdrawal with delirium tremens but denies history of alcohol withdrawal seizure. -Alcohol level < 10 on admission. -Patient's CIWA score has remained low without evidence of acute withdrawal. -Continue folic acid 1 mg daily, thiamine 100 mg daily and multivitamin daily. -Counseled the patient on alcohol use and recommended cutting back or abstaining from alcohol. -Obtained echocardiogram which was unremarkable and did not demonstrate alcohol- induced cardiomyopathy. 6. History of hypertension, chronic, present on admission. Inactive. -Patient is not medically treated. -blood pressures have been normal since admission 7. Tobacco dependence, chronic, present on admission. Stable. -Patient reports he smokes 0.5 ppd every 3 days. -Continue Nicoderm patch daily to prevent nicotine withdrawal. -Counseled patient and recommended indefinite smoking cessation. 8. Severe chronic protein calorie malnutrition, present on admission. Stable. -BMI 20.6. Secondary due to physical immobility and chronic alcohol use as evidence by 12.2% unintentional weight loss in 3 months, meeting <50% EER in past 3 months, patient found on floor by EMS after suffering hip fracture and had been using wheelchair for weeks prior due to weakness, imaging showing diffuse osteopenia, and sacral decubitus ulcers with eschar. -Consulted dietitian appreciate her time and recommendations. -Patient is high risk of infection, surgical complication, morbidity and mortality due to poor nutritional status with poor ability to heal. -received 1 g IV magnesium for serum magnesium level 1.5 Code status: Full code, patient designates Krupa Iniguez to be his surrogate decision maker. VTE prophylaxis: ASA, compression stockings Disposition: Patient has been stable to [facility] to [facility]. Awaiting [facility] insurance authorization. Quality VTE Deep Vein Thrombosis/Pulmonary Embolism Present on Admission: No
--- NOTE | 2020-06-22 11:16 | PC.NURSE ---
Day shift: Dressing replaced at approx 1100 today. Replaced with Allyven dressing at coccyx and over the pressure wound bilat buttox. Pt tolerated well. Pt had a shower today at approx 1045 and tolerated that well as well. Linen changed and new gown on Pt. Pt stated feeling a little better now. Call light in reach. Bed alarm is on. No s/s of ETOH detox. Will continue to monitor and continue plan of care.
[2020-06-22 11:18] VITALS: BP 122/51; PULSE 97; RESP 16; TEMP 36.6; O2SAT 97
--- NOTE | 2020-06-22 12:57 | PT-IP ANOTE ---
Pt refused tx due to pain and fatigue. Will check back with pt in the morning for therapy session.
[2020-06-22 15:50] VITALS: BP 131/85; PULSE 106; RESP 18; TEMP 37.1; O2SAT 94
--- NOTE | 2020-06-22 16:53 | OT.IPNOTE ---
Patient seen in bed with evening tray. Offered assist to transfer to chair for meal, however, patient declined. He reports limited tolerance with sitting d/t pain with pressure ulcer. Reviewed importance of position changes in bed with patient verbalizing understanding and nursing staff providing assist. Patient declines further treatment at this time. Will follow-up for further ADL training tomorrow.
[2020-06-22 19:41] VITALS: BP 165/68; PULSE 85; RESP 19; TEMP 36.9; O2SAT 98
--- NOTE | 2020-06-22 21:04 | PC.NURSE ---
4/10 pain to right hip; Proximal aquacell drsg with shadow drainage, distal aquacell drsg c/d/i; c/m/s to RLE positive; PPP; pt 1+ bilateral edema to ankles; SCDs active; pt declines repositioning by nursing staff, saying I can move myself, pt also declines working with OT in the afternoon; he affirms that waffle cushion in in place This RN assessed patient for interest in alcohol abuse education; pt shows very mild interest and appears to have knowledge deficits regarding long-term consequences, but was willing to accept AA meeting instructions for [facility]
[2020-06-22 23:55] VITALS: BP 146/91; PULSE 75; RESP 18; TEMP 36.6; O2SAT 97
[2020-06-23 05:26] VITALS: BP 136/87; PULSE 86; RESP 16; TEMP 37.1; O2SAT 97
[2020-06-23 07:56] VITALS: BP 145/97; PULSE 89; RESP 16; TEMP 36.4; O2SAT 98
--- NOTE | 2020-06-23 08:37 | CM.DPNOTE ---
Faxed PASRR, FS, SX, last PN, PT/OT to [facility]- janice Syed. Fax confirmation received. Alyssa Anderson CM Asst.
--- NOTE | 2020-06-23 08:41 | CM.DPC ---
DCP/continued: Reviewed chart. Patient is an [facility] patient in need of SNF for hip fx repair rehabilitation. Per notes, difficulty with placement due to insurance? Placed call to Mara at [facility] to review and check with [facility] on carve out rate for rehabilitation. Also spoke with Randolph at [facility] in [place] ph# [phone] he reports that they do have contract with [facility] and is willing to review. Asked GAETANO/Alyssa to fax clinicals to [facility] at [phone]. P: Hopeful patient will be accepted to SNF today. KATT Flaherty
[2020-06-23] MEDS: SODIUM CHLORIDE 0.9% FLUSH 10 ML IV ×2 (09:00→21:15)
--- NOTE | 2020-06-23 09:28 | PC.NURSE ---
Day shift: Per Dr Vivek daniel to d/c CIWA precautions.
[2020-06-23] MEDS: FOLIC ACID 1 MG TABLET PO (09:45)
[2020-06-23] MEDS: ASPIRIN EC 81 MG TABLET PO ×2 (09:45→21:15)
[2020-06-23] MEDS: polyethylene glycoL 3350 17 GM POWD.PACK PO (09:45)
[2020-06-23] MEDS: DOCUSATE 100 MG CAPSULE PO ×2 (09:45→21:15)
[2020-06-23] MEDS: CODEINE/ACETAMINOPHEN 30/300 TABLET 1 TAB PO ×3 (09:46→23:43)
[2020-06-23] MEDS: FAMOTIDINE 20 MG TABLET PO ×2 (09:46→21:15)
[2020-06-23] MEDS: guaiFENesin ER 600 MG TAB 1200 MG PO ×2 (09:46→21:15)
[2020-06-23] MEDS: MULTIVITAMIN 1 TABLET 1 TAB PO (09:46)
[2020-06-23] MEDS: THIAMINE 100 MG TABLET PO (09:46)
--- NOTE | 2020-06-23 10:11 | CM.DPNOTE ---
Faxed all clinicals to [facility], per Yahaira on 06/23/20 and received confirmation. Alyssa Anderson CM Asst.
[2020-06-23] MEDS: NICOTINE 7 MG PATCH TOP (11:09)
--- NOTE | 2020-06-23 11:19 | PT.IPTN ---
Current Diagnoses Gangrene, not elsewhere classified (06/18/20) Displaced intertrochanteric fracture of right femur, initial encounter for closed fracture (06/18/20) Surgery Performed Operation Date: 06/18/20 17:00 Actual Procedures p Intramedullary Nailing Femur(Right) - Carlitos Betancourt MD Physical Therapy Treatment Note M2 PT-IP Current Condition Start: 06/19/20 08:21 Freq: NEEDED Status: Active Protocol: Document 06/21/20 14:12 MA (Rec: 06/21/20 14:12 MA [id number]) Physical Therapy Current Condition Current Condition Evaluation Date 06/19/20 Treatment Diagnosis R displaced IT fracture s/p CMN; sacral PI; difficulty in walking Onset Date 06/07/20 Precautions Other Precautions caution with sacral PI to avoid shear forces Weight Bearing Status Weight Bearing Status Weight Bear as Tolerated M3 PT-IP Subjective Start: 06/19/20 08:21 Freq: NEEDED Status: Active Protocol: Document 06/23/20 11:03 CLB (Rec: 06/23/20 14:02 CLB [id number]) Subjective Physical Therapy Visit Type Type Treatment Note Visit Start Time 11:03 Visit Stop Time 11:19 Total Visit Minutes 16 Number of SALES AGENT FOOD VENDING SERVICE Visits 12 Physical Therapy Visit Comments Patient Comments Pt willing to get OOB for a walk. Therapy Pain Assessment Pain When Pain Assessed During Mobility Pain Present Pain Present Pain Reported M4 PT-IP Mobility and Gait Start: 06/19/20 08:21 Freq: NEEDED Status: Active Protocol: Document 06/23/20 11:03 CLB (Rec: 06/23/20 14:02 CLB [id number]) PT-Bed Mobility Assessment Supine to Sit Supine to Sit Minimal Assistance,1 Person Assistance,Head of Bed Elevated Sit to Supine Sit to Supine Minimal Assistance,1 Person Assistance,Head of Bed Elevated Scooting Scooting to Edge of Bed Standby Assistance PT-Transfer Assessment Sit to and From Stand Sit to and from Stand Contact Guard Assistance,1 Person Assistance,Use of Upper Extremities Equipment Transfer Assistive Device Gait Belt,Front Wheeled Walker Orthotic/Prosthetic Devices or Brace: No Transfer Ability Level of Assist Contact Guard Assistance Comments Mobility Comments Pt SBA for bed mobility to EOB then CGA for sit-stand. Pt ambulated requiring CGA w/FWW ~60ft with one stand rest break. Pt then required Min A of RLE onto bed during sit to supine. Pt then perform HS and AP's. Left pt in bed with alarm on and all needs within reach. Gait Assessment Gait Gait Assistance Required: Contact Guard Assist,1 Person Assist Distance (Feet) 60 Assistive Devices Assistive Device Gait Belt,Front Wheeled Walker Orthotic/Prosthetic Devices or Brace: No Gait Deviations General Gait Pattern Antalgic,Decreased Stride Length,Decreased Feet Clearance,Flexed Trunk,Step-to Gait,Wide Based Gait Factors Limiting Gait Function Factors Limiting Gait Function Decreased Activity Tolerance, Decreased Sensation,Decreased Strength,Difficulty Following Directions,Limited Range of Motion,Pain,Poor Balance,Poor Safety Awareness Comments Gait Comments see mobility comments. Stair Climbing Assessment Comments Stair Climbing Comments Not assessed. At this time, pt will d/c to SNF tomorrow. If d/c is changed, will need to complete 1 step with L rail for home mgt. PT-Balance Assessment Sitting Balance and Reactions Static Sitting Balance Ability Good Dynamic Sitting Balance Ability Good Standing Balance and Reactions Static Standing Balance Ability Good Dynamic Standing Balance Ability Fair Device Used FWW M5 PT-IP Objective Assessments Start: 06/19/20 08:21 Freq: NEEDED Status: Active Protocol: Document 06/19/20 12:30 AW (Rec: 06/19/20 13:03 AW [id number]) Orientation Orientation/Cognition Level of Alertness Confusional State Orientation Name,Month,Place,Situation Language Function Ability No Deficits Noted Safety Awareness Decreased Safety Awareness Memory Description Short Term Impaired Gross Range of Motion Lower Extremity ROM Assessment Right Impaired Strength Lower Extremity Strength Assessment Bilaterally Impaired Hip L 4/5; R 3-/5 Knee L 4/5; R 3/5 Ankle B 4-/5 Sensation Assessment Sensation Gross Sensation Right LE Impaired Proprioception (Position) Impaired Muscle Tone Muscle Tone WNL Yes M6 PT-IP Treatment Start: 06/19/20 08:21 Freq: NEEDED Status: Active Protocol: Document 06/23/20 11:03 CLB (Rec: 06/23/20 14:02 CLB [id number]) Physical Therapy Treatment Exercises Exercises Ankle Pumps,Heel Slides M7 PT-IP Assessment and Plan Start: 06/19/20 08:21 Freq: NEEDED Status: Active Protocol: Document 06/23/20 11:03 CLB (Rec: 06/23/20 14:02 CLB [id number]) PT Summary Assessment and Plan Summary Impairments Pain,ROM,Strength,Balance, Sensation,Cognition,Bed Mobility,Transfers,Gait, Activity Tolerance Progress Towards Goals Slow Progress due to Pain,Slow Progress due to Medical Issues,Slow Progress due to Activity Tolerance Assessment Summary Pt continues to require Min A for bed mobility and CGA for sit-stand and gait. Pt increased gait distance using slow gait requiring increased time and one standing rest break. Pt will benefit from SNF rehab before returning home to increase strength and activity tolerance for functional mobility. Goals Bed Mobility Goal Standby Assistance Transfer Goal Contact Guard Assistance,Front Wheeled Walker Gait Goal Standby Assistance,Front Wheel Walker Gait Distance 75 Other Goals up/down one step with L rail CGA (ONLY if going home) Days to Meet Goals 10 Frequency of Treatment Frequency Of Treatment Twice a Day Treatment Plan Physical Therapy Treatment Plan Bed Mobility Training,Transfer Training,Gait Training, Therapeutic Exercise,Balance Retraining,Post Op Education, Discharge Planning,Hot or Cold Pack,Neuromuscular Re-ed Other Recommendations and Next Treatment bed mobility, transfers, Focus ambulation with FWW Recommendations To Nursing Amount of Assist Needed 1 Person Assist Discharge Recommendations PT Discharge Recommendations SNF Rehab Equipment Needed for Home Before defer to subacute rehab Discharge setting, may need FWW prior to DC home. Transportation Needs at Discharge Wheelchair/Cabulance
[2020-06-23 11:52] VITALS: BP 126/82; PULSE 89; RESP 16; TEMP 36.4; O2SAT 99
--- NOTE | 2020-06-23 12:23 | OT.IPNOTE ---
Attempted to see pt for OT treatment and pt states too tired as just finished seeing [place] MACHINE OPERATOR for walking. To attempt again later to see pt for OT treatment.
--- NOTE | 2020-06-23 12:33 | DIET.PN ---
Dietary Progress Note Assessment: 65y M admitted for displaced IT hip fracture found down by friend at home referred to nutrition for loss of muscle mass, etoh, and Stage 1 and 2 sacral decubitus ulcers. Pt consuming 75% of meals and ONS supplements improving wound healing and supporting healing of hip fx repair along c avoidance of etoh. Pts PCM is resolving, however not resolved. Pt awaiting d/c to SNF for further rehab. HT: 167.6cm WT: 60.3kg up from 58kg at admit (+3.9%) UBW: 66kg BMI: 21.5 Labs: Cr 0.44 L, A1c 5.0 MNA: 7 malnourished Dion: improved to 19 from 11 on admit poor skin integrity (stage 1&2 ulcers) Nutrition Diagnosis: Resolving Severe Acute on Chronic PCM r/t physical immobility and chronic etoh use aeb 12.2% unintentional weight loss in 3mo, meeting <50% EER in past 3mo, pt found on floor by EMS after suffering hip fx and had been using wheelchair for weeks prior r/t weakness, imaging showing diffuse osteopenia, stage 1 and 2 sacral decubitus ulcers c eschar. Interventions: 1. Educated pt on importance of etoh cessation and implications for nutrient malabsorption. 2. Encouraged pt to consume three meals per day to support LBM. Recc pt request ONS Ensure c MOW deliveries to support kcal and protein needs at home. 3. Recc ONS Morteza bid and Ensure Enlive once daily to support kcal and pro needs for PCM and post-surgical healing. Diet Order: general EER: 2,030kcal (35kcal/kg per PCM), 81g PRO (1.4g/kg per PCM and post surgical healing) Monitoring/Evaluations: daily weights
--- NOTE | 2020-06-23 13:27 | CM.DPNOTE ---
61.aven't heard back from Randolph at [facility]. Called Page at [facility] ([phone]) since they too take [facility] and faxed clinicals to her for review ([phone] and [phone]). Also sent clinicals to [facility] because they have available beds and are willing to do a carve out. Spoke to Francisca at to also attempt a carve out.
--- NOTE | 2020-06-23 14:30 | OT.IP.TRT ---
Current Diagnoses Gangrene, not elsewhere classified (06/18/20) Displaced intertrochanteric fracture of right femur, initial encounter for closed fracture (06/18/20) Surgery Performed Operation Date: 06/18/20 17:00 Actual Procedures p Intramedullary Nailing Femur(Right) - Carlitos Betancourt MD Occupational Therapy Treatment Note M2 OT-IP Current Condition Start: 06/19/20 12:33 Freq: Status: Active Protocol: Document 06/19/20 12:34 CGR (Rec: 06/19/20 12:51 CGR [id number]) Occupational Therapy Current Condition Current Condition Evaluation Date 06/19/20 Treatment Diagnosis R hip fx s/p R cepalomedullary nailing Diagnosis Onset Date 06/18/20 Weight Bearing Status Weight Bearing Status Weight Bear as Tolerated M3 OT- IP Subjective and Pain Start: 06/19/20 12:33 Freq: Status: Active Protocol: Document 06/23/20 16:16 CCC (Rec: 06/23/20 16:20 CCC [id number]) OT- Subjective Occupational Therapy Visit Type Type Treatment Note Visit Start Time 14:22 Visit Stop Time 14:30 Total Visit Minutes 8 Occupational Therapy Visit Comments Patient Comments Pt not wanting to brush his teeth or use the bathroom but willing to get out of bed. OT Pain Assessment Pain When Pain Assessed At Rest Pain Present Pain Present Pain Reported M6 OT- IP Functional Cognition Start: 06/19/20 12:33 Freq: Status: Active Protocol: Document 06/19/20 12:34 CGR (Rec: 06/19/20 12:51 CGR [id number]) Cognitive Factors Limiting Selfcare Function Cognitive Ability Level of Alertness Alert Patient Orientation Name,Place,Situation Attention Span Ability Capable of Focused Attention, Capable of Sustained Attention Ability to Follow Commands Able to Follow One Step Commands with Increased Time, Able to Follow One Step Commands with Repetition Cognitive Comments Cognitive Assessment Comments Pt appears to need extra vc d/ t pain. OT- Vision and Hearing OT- Hearing Assessment OT- Hearing Assessment WFL OT- Vision Assessment Visual Acuity WFL Visual Attentiveness WFL Occular Pursuits WFL M7 OT- IP Mobility and Balance Start: 06/19/20 12:33 Freq: Status: Active Protocol: Document 06/23/20 16:16 CCC (Rec: 06/23/20 16:20 CCC [id number]) OT- Bed Mobility Assessment Supine to Sit Supine to Sit Assist Standby Assistance,Bedrails Scooting Scooting to Edge of Bed Standby Assistance OT-Transfer Assessment Sit to and From Stand Sit to and from Stand Minimal Assistance,1 Person Assistance Transfers Transfer Ability Contact Guard Assistance Comments Mobility Comments Increased time to get from supine to sit with bed rails and encouragement. Pt needing RANDY to stand to FWW. SHIPPING AND RECEIVING OPERATOR came in the room to take over as pt just wanting to walk onoy at this time and refusing to do any ADl needs at this time. OT- Balance Assessment Sitting Balance and Reactions Static Sitting Balance Ability Good Dynamic Sitting Balance Ability Fair M8 OT- IP Objective Assessments Start: 06/19/20 12:33 Freq: Status: Active Protocol: Document 06/19/20 12:34 CGR (Rec: 06/19/20 12:51 CGR [id number]) OT Gross Range of Motion Upper Extremity Range of Motion Assessment Within Functional Limits OT Strength Upper Extremity Strength Assessment Within Functional Limits Comments Strength Comments grossly 4/5 OT- Coordination Assessment Upper Extremity Finger to Nose Test Within Functional Limits Finger Tapping Test Within Functional Limits OT-Muscle Tone Assessment Muscle Tone WNL Yes OT Sensation Assessment Edema Edema Present Edema Comments Noted swelling to the RLE M9 OT- IP Assessment and Plan Start: 06/19/20 12:33 Freq: Status: Active Protocol: Document 06/23/20 16:16 [facility] (Rec: 06/23/20 16:20 [facility] [id number]) OT Summary Assessment and Plan Potential Rehabilitation Potential Good Analytic Complexity at Evaluation Moderate Summary OT Impairments Pain,Strength,Balance, Functional Mobility,Grooming, Dressing,Toileting,Bathing, Toilet Transfers,Shower Transfers,Activity Tolerance Progress Towards Goals Progressing Toward Goals Assessment Summary Pt will benefit from skilled rehab as still needing assist for all ADl and mobility needs . Pt looking to go to skilled rehab when medically stable. Goals Grooming Goal Independent Dressing Goal Independent Toileting Goal Independent Bathing Goal Independent Toilet Transfer Goal Independent Shower Transfer Goal Independent Days to Meet Goals 19 Frequency of Treatment Frequency Of Treatment Once a Day Treatment Plan OT Treatment Plan ADL Training,Functional Mobility,Patient/Family Education,Discharge Planning Discharge Recommendations OT Discharge Recommendations SNF Rehab Home Equipment Needs Defer to SNF Transportation Needs at Discharge Wheelchair/Cabulance
--- NOTE | 2020-06-23 14:45 | PT.IPTN ---
Current Diagnoses Gangrene, not elsewhere classified (06/18/20) Displaced intertrochanteric fracture of right femur, initial encounter for closed fracture (06/18/20) Surgery Performed Operation Date: 06/18/20 17:00 Actual Procedures p Intramedullary Nailing Femur(Right) - Carlitos Betancourt MD Physical Therapy Treatment Note M2 PT-IP Current Condition Start: 06/19/20 08:21 Freq: NEEDED Status: Active Protocol: Document 06/21/20 14:12 MA (Rec: 06/21/20 14:12 MA [id number]) Physical Therapy Current Condition Current Condition Evaluation Date 06/19/20 Treatment Diagnosis R displaced IT fracture s/p CMN; sacral PI; difficulty in walking Onset Date 06/07/20 Precautions Other Precautions caution with sacral PI to avoid shear forces Weight Bearing Status Weight Bearing Status Weight Bear as Tolerated M3 PT-IP Subjective Start: 06/19/20 08:21 Freq: NEEDED Status: Active Protocol: Document 06/23/20 14:29 CLB (Rec: 06/23/20 15:01 CLB [id number]) Subjective Physical Therapy Visit Type Type Treatment Note Visit Start Time 14:29 Visit Stop Time 14:45 Total Visit Minutes 16 Number of APPLICATION SPEC Visits 13 Physical Therapy Visit Comments Patient Comments Pt OOB with OT upon arrival, pt willing to ambulate, I need to get better Therapy Pain Assessment Pain When Pain Assessed During Mobility Pain Present Pain Present Pain Reported M4 PT-IP Mobility and Gait Start: 06/19/20 08:21 Freq: NEEDED Status: Active Protocol: Document 06/23/20 14:29 CLB (Rec: 06/23/20 15:01 CLB [id number]) PT-Transfer Assessment Sit to and From Stand Sit to and from Stand Contact Guard Assistance,1 Person Assistance,Use of Upper Extremities Equipment Transfer Assistive Device Gait Belt,Front Wheeled Walker Orthotic/Prosthetic Devices or Brace: No Transfer Ability Level of Assist Contact Guard Assistance Comments Mobility Comments Pt ambulated in mittal ~100ft w/ FWW/CGA, pt uses small step thru gait pattern with wide stance. Pt required cues not to get too close to front of walker for safety. Pt required a standing rest break after ~ 50ft then returned to room. Pt then required CGA for stand- sit and Min A of RLE onto bed, pt was able to scoot up in bed SBA. Pt left with RLE elevated on pillow, call light and all needs within reach and bed alarm on. Inform [employer] NAT[employer] G[employer] PLANT OPERATOR of pt mobility. Gait Assessment Gait Gait Assistance Required: Contact Guard Assist,1 Person Assist Distance (Feet) 100 Assistive Devices Assistive Device Gait Belt,Front Wheeled Walker Orthotic/Prosthetic Devices or Brace: No Gait Deviations General Gait Pattern Antalgic,Decreased Stride Length,Decreased Feet Clearance,Flexed Trunk,Step-to Gait,Wide Based Gait Factors Limiting Gait Function Factors Limiting Gait Function Decreased Activity Tolerance, Decreased Sensation,Decreased Strength,Difficulty Following Directions,Limited Range of Motion,Pain,Poor Balance,Poor Safety Awareness Comments Gait Comments see mobility comments. Stair Climbing Assessment Comments Stair Climbing Comments Not assessed. At this time, pt will d/c to SNF tomorrow. If d/c is changed, will need to complete 1 step with L rail for home mgt. PT-Balance Assessment Sitting Balance and Reactions Static Sitting Balance Ability Good Dynamic Sitting Balance Ability Good Standing Balance and Reactions Static Standing Balance Ability Good Dynamic Standing Balance Ability Fair Device Used FWW M5 PT-IP Objective Assessments Start: 06/19/20 08:21 Freq: NEEDED Status: Active Protocol: Document 06/19/20 12:30 AW (Rec: 06/19/20 13:03 AW [id number]) Orientation Orientation/Cognition Level of Alertness Confusional State Orientation Name,Month,Place,Situation Language Function Ability No Deficits Noted Safety Awareness Decreased Safety Awareness Memory Description Short Term Impaired Gross Range of Motion Lower Extremity ROM Assessment Right Impaired Strength Lower Extremity Strength Assessment Bilaterally Impaired Hip L 4/5; R 3-/5 Knee L 4/5; R 3/5 Ankle B 4-/5 Sensation Assessment Sensation Gross Sensation Right LE Impaired Proprioception (Position) Impaired Muscle Tone Muscle Tone WNL Yes M6 PT-IP Treatment Start: 06/19/20 08:21 Freq: NEEDED Status: Active Protocol: Document 06/23/20 11:03 CLB (Rec: 06/23/20 14:02 CLB [id number]) Physical Therapy Treatment Exercises Exercises Ankle Pumps,Heel Slides M7 PT-IP Assessment and Plan Start: 06/19/20 08:21 Freq: NEEDED Status: Active Protocol: Document 06/23/20 14:29 CLB (Rec: 12/28/20 15:01 CLB [id number]) PT Summary Assessment and Plan Summary Impairments Pain,ROM,Strength,Balance, Sensation,Cognition,Bed Mobility,Transfers,Gait, Activity Tolerance Progress Towards Goals Progressing Toward Goals Assessment Summary Pt able to increase ambulation to ~100ft w/FWW/CGA, pt requires Min A of RLE during sit-supine and pt is able to scoot up towards HOB SBA. Goals Bed Mobility Goal Standby Assistance Transfer Goal Contact Guard Assistance,Front Wheeled Walker Gait Goal Standby Assistance,Front Wheel Walker Gait Distance 75 Other Goals up/down one step with L rail CGA (ONLY if going home) Days to Meet Goals 10 Frequency of Treatment Frequency Of Treatment Twice a Day Treatment Plan Physical Therapy Treatment Plan Bed Mobility Training,Transfer Training,Gait Training, Therapeutic Exercise,Balance Retraining,Post Op Education, Discharge Planning,Hot or Cold Pack,Neuromuscular Re-ed Other Recommendations and Next Treatment bed mobility, transfers, Focus ambulation with FWW Recommendations To Nursing Amount of Assist Needed 1 Person Assist Discharge Recommendations PT Discharge Recommendations SNF Rehab Equipment Needed for Home Before defer to subacute rehab Discharge setting, may need FWW prior to DC home. Transportation Needs at Discharge Wheelchair/Cabulance
--- NOTE | 2020-06-23 15:01 | CM.DPNOTE ---
Spoke with Randolph from [facility] in [place]. They are willing to take patient. Randolph will request authorization for SNF from [facility] today and will [place] back with us tomorrow am with an update. They can take patient as soon as the authorization is approved.
--- NOTE | 2020-06-23 15:05 | PC.NURSE ---
shift note- A/O x4, 97% RA LS; bilat mid,bases, and posterior exp/insp ronchi wheeze, upper bilat lungs exp/insp wheezes. Denies SOB, using I.S. to 1300 and accapela. 2 pitting edema to bialt ankles. Rt hip drsg proximal old shadow drainage, distal drsg CDI. Wound to left buttock stage III now, unstagable prior to debridment, right buttock red without open skin, stage II, alevyn drsgs to buttocks and coccyx. bruise to back of right knee. 1PA FWW to ambulate, up w PT x2 this shift, up to BSC @ 1045 for sm BM. Nicotine patch to back upper Rt arm. Refused to up to chair for lunch. Refused cesia gardner and SCD's. Call light in reach and able to use appropriately.
[2020-06-23 15:10] VITALS: BP 103/76; PULSE 93; RESP 17; TEMP 36.8; O2SAT 97
--- NOTE | 2020-06-23 15:33 | PM.PN.1 ---
Subjective Subjective Date Patient Seen: 06/23/20 Time Patient Seen: 12:30 Interval history: Pradip Barron is a 65-year-old male with a past medical history significant for hypertension, tobacco dependence, and alcohol dependence who presented to the ED via EMS with right hip pain due to intertrochanteric fracture. Patient is postop day 5 s/p right hip ORIF. He was able to walk PT yesterday but requiring 2 person assist and PT recommending longterm facility rehab. Pending authorization from insurance for rehab, anticipate discharge hopefully tomorrow. He has had two BMs since surgery, both quite hard. Denies fever, chills. Complains of chronic ache in that hip and sharp pains with movement. Exam Vital Signs (past 8 hours): - 06/23/20 07:56 06/23/20 11:52 Temperature 97.5 F L 97.5 F L Pulse Rate 89 89 Respiratory Rate 16 16 Blood Pressure 145/97 H 126/82 Pulse Oximetry 98 99 Oxygen Delivery Method Room Air Oxygen Flow Rate 0 Narrative Exam Narrative: General: Alert and cooperative male no acute distress Lungs: Coarse bilateral breath sounds, likely chronic associated with smoking CV: RRR no m/r/g Abdomen: Soft, non-distended, non-tender. Extremities: Right thigh edema stable, hip dressing intact Neurological: Affect normal, speech normal Objective Labs Result Diagrams: 06/21/20 05:05 06/22/20 04:55 [facility] Medical History Alcohol abuse History of pneumothorax Hypertension Surgical History History of hip surgery History of knee surgery Family History Brother Cancer Mother Alzheimer's dementia Social History household members: none Smoking Status: Current every day smoker alcohol intake: current Assessment & Plan Assessment & Plan narrative: Pradip Barron is a 65-year-old male with a past medical history significant for hypertension, tobacco dependence, and alcohol dependence who presented to the ED via EMS with right hip pain due to intertrochanteric fracture. 1. Acute pathological right comminuted intertrochanteric femur fracture, acute, present on admission, active. -Patient presented after sustaining a ground level fall 10 days prior to admission with abrupt onset right hip pain and inability to ambulate. Patient was mobilizing using wheelchair at home. -Hip x-ray demonstrated comminuted right intertrochanteric femur fracture. -Consulted Orthopedic surgery, Dr. Betancourt, who performed ORIF. -Continue aspirin 81 mg twice daily for VTE prophylaxis and famotidine 20 mg twice daily for GI prophylaxis. -Continue calcium and vitamin-D3 supplementation. Patient will need to be treated for osteoporosis by orthopedic surgery or PCP. -continue PT and OT -Tylenol and Tylenol with codeine as needed for pain (patient requested Tylenol with codeine based on previous experience) 2. Acute on chronic blood loss anemia, present on admit -patient has chronic iron deficiency anemia documented as far back as 2015 with unknown prior workup -transfused 2 units PRBC for symptomatic anemia related to hip fracture, with improvement in tachycardia -consider outpatient upper and lower endoscopies for chronic anemia evaluation 3. Sacral decubitus ulcers with eschar, acute, unstageable, present on admission. Active. -Patient presented with 7 cm x 6 cm sacral decubitus covered with black eschar and is unstageable. -Blood cultures x2 have no growth to date other than 1 bottle with coag-negative staph which represents skin contamination. -Consulted general surgery, Dr. Farias, who performed bedside debridement. Continue wound care per nursing. General surgery does not feel that sacral decubitus pressure ulcer is infected and have discontinued antibiotics (received vancomycin per pharmacist, levofloxacin and Zosyn). -Continue frequent turning, repositioning and offloading. 4. Hyponatremia, acute on chronic, present on admission. Active. -Secondary to chronic alcohol use, dehydration and poor nutritional intake. -Initial sodium 122. Sodium level slightly improved with IV fluid hydration and stable at 125 -NS discontinued 06/20 5. Alcohol dependence, chronic, present on admission. Stable. -Patient reports consuming 3 beers a day. Patient has history of alcohol withdrawal with delirium tremens but denies history of alcohol withdrawal seizure. -Alcohol level < 10 on admission. -Patient's CIWA score has remained low without evidence of acute withdrawal. -Continue folic acid 1 mg daily, thiamine 100 mg daily and multivitamin daily. -Counseled the patient on alcohol use and recommended cutting back or abstaining from alcohol. -Obtained echocardiogram which was unremarkable and did not demonstrate alcohol-induced cardiomyopathy. 6. History of hypertension, chronic, present on admission. Inactive. -Patient is not medically treated. -blood pressures have been normal since admission 7. Tobacco dependence, chronic, present on admission. Stable. -Patient reports he smokes 0.5 ppd every 3 days. -Continue Nicoderm patch daily to prevent nicotine withdrawal. -Counseled patient and recommended indefinite smoking cessation. 8. Severe chronic protein calorie malnutrition, present on admission. Stable. -BMI 20.6. Secondary due to physical immobility and chronic alcohol use as evidence by 12.2% unintentional weight loss in 3 months, meeting <50% EER in past 3 months, patient found on floor by EMS after suffering hip fracture and had been using wheelchair for weeks prior due to weakness, imaging showing diffuse osteopenia, and sacral decubitus ulcers with eschar. -Consulted dietitian appreciate her time and recommendations. -Patient is high risk of infection, surgical complication, morbidity and mortality due to poor nutritional status with poor ability to heal. -received 1 g IV magnesium for serum magnesium level 1.5 Code status: Full code, patient designates Krupa Iniguez to be his surrogate decision maker. VTE prophylaxis: ASA, compression stockings Disposition: Patient has been stable to discharge to longterm for rehab. Awaiting [facility] insurance authorization. Quality VTE Deep Vein Thrombosis/Pulmonary Embolism Present on Admission: No
--- NOTE | 2020-06-23 17:11 | PC.NURSE ---
Pt goals written on white board, including repositioning/ambulating, nutrition, and deep breathing; Wound to buttocks rinsed with saline, new allevyn applied, riki-skin pink; pt is willing to add high protein ensure to diet for wound healing; sitting up to chair for dinner; rhonchi to bl mid/lower lungs; IS 1500 X 8 breaths; SCDs removed for dinner
[2020-06-23] MEDS: CALCIUM CARB/VIT D3 500/200 TABLET 1 EACH PO (18:13)
[2020-06-23 20:36] VITALS: BP 126/80; PULSE 89; RESP 16; TEMP 37.2; O2SAT 99
[2020-06-23 23:54] VITALS: BP 149/93; PULSE 88; RESP 16; TEMP 36.8; O2SAT 98
[2020-06-24 04:11] VITALS: BP 130/90; PULSE 79; RESP 16; TEMP 36.2; O2SAT 99
[2020-06-24] MEDS: CODEINE/ACETAMINOPHEN 30/300 TABLET 1 TAB PO ×2 (05:51→09:53)
[2020-06-24 08:00] VITALS: BP 141/94; PULSE 87; RESP 15; TEMP 36.8; O2SAT 100
--- NOTE | 2020-06-24 09:07 | P.PN_ITS ---
Subjective Subjective Date Patient Seen: 06/24/20 Time Patient Seen: 09:07 Interval history: Patient's pain is 4/10. Denies fever /chills. No nausea/ vomiting. Exam Vital Signs (past 8 hours): - 06/24/20 04:11 06/24/20 08:00 Temperature 97.2 F L 98.2 F Pulse Rate 79 87 Respiratory Rate 16 15 Blood Pressure 130/90 141/94 H Pulse Oximetry 99 100 Oxygen Delivery Method Room Air Oxygen Flow Rate 0 Narrative Exam Narrative: 65-year-old male resting comfortably in bed in no apparent distress. Both dressings are little moist otherwise intact. Sensation grossly intact distal right lower extremity. Right leg is warm and dry. Motor functions intact distally. Objective Labs Result Diagrams: 06/21/20 05:05 06/22/20 04:55 [facility] Medical History Alcohol abuse History of pneumothorax Hypertension Surgical History History of hip surgery History of knee surgery Family History Brother Cancer Mother Alzheimer's dementia Social History household members: none Smoking Status: Current every day smoker alcohol intake: current Assessment & Plan Post-op Postoperative Procedures: Procedures Operation Date: 06/18/20 17:00 Actual Procedures Side Surgeon p Intramedullary Nailing Femur Right Carlitos Betancourt MD Postop day 6. Stable. Status post right long cephalomedullary nail. Weightbearing as tolerated right lower extremities. Six weeks DVT prophylaxis follow-up 10-[address] Betancourt. Patient is being followed by hospitalist and reviewed note from 06/23/2020. Patient also had bedside debridement by General surgery of decubitus ulcer. Patient is awaiting authorization to be discharged to alf facility. Quality VTE Deep Vein Thrombosis/Pulmonary Embolism Present on Admission: No
[2020-06-24] MEDS: polyethylene glycoL 3350 17 GM POWD.PACK PO (09:10)
[2020-06-24] MEDS: ASPIRIN EC 81 MG TABLET PO (09:11)
[2020-06-24] MEDS: FAMOTIDINE 20 MG TABLET PO (09:11)
[2020-06-24] MEDS: FOLIC ACID 1 MG TABLET PO (09:11)
[2020-06-24] MEDS: DOCUSATE 100 MG CAPSULE PO (09:11)
[2020-06-24] MEDS: MULTIVITAMIN 1 TABLET 1 TAB PO (09:11)
[2020-06-24] MEDS: THIAMINE 100 MG TABLET PO (09:11)
[2020-06-24] MEDS: guaiFENesin ER 600 MG TAB 1200 MG PO (09:11)
[2020-06-24] MEDS: CALCIUM CARB/VIT D3 500/200 TABLET 1 EACH PO (09:22)
[2020-06-24] MEDS: SODIUM CHLORIDE 0.9% FLUSH 10 ML IV (09:24)
[2020-06-24] MEDS: NICOTINE 7 MG PATCH TOP (09:25)
--- NOTE | 2020-06-24 10:22 | PM.DS.1 ---
History of Present Illness History of Present Illness Date Patient Seen: 06/24/20 Time Patient Seen: 10:22 Chief complaint: Right hip pain Narrative: As per REDDY Ames: Mr. Pradip Barron is a 65-year-old male who is a current smoker with a past medical history of hypertension and alcoholism who presents to the ER via EMS with right hip pain. The patient reports that he tripped and fell 10 days ago and had right hip pain and was unable to bear weight. He remained at home and was getting around in his wheelchair. He slid out of his wheelchair who was on the floor for approximately 5 hours until found by his friends who check on him regularly and summon EMS. The patient reports no loss of consciousness, head or neck pain following his fall. The patient denies constitutional symptoms of fevers or chills has had no headaches or dizziness. He endorses continuing to drink 3 beers daily and a pack of cigarettes lasts him approximately 2 days. He denies complaints of chest pain or palpitations. He reports no shortness of breath and has a chronic cough that is productive for milky colored sputum. Reports no complaints of abdominal pain, describes as stomach is tight, and denies nausea vomiting, diarrhea or constipation. The patient indicates that prior to his fall he was ambulatory in used no assistive devices. He has a wheelchair that he is currently using having had a previous left hip fracture. Upon arrival to the ER patient has a temperature of 102? degrees, tachycardic at 120, blood pressure of 116/69 respirations 20 saturating 97% on room air. X-ray of the pelvis and hip finds a right comminuted intertrochanteric fracture. A CT of the chest obtained related to trauma finding no acute intrathoracic process. CT the cervical spine finds no bony abnormalities. CT of the head finds no acute intracranial processes, small-vessel ischemic changes. On laboratory analysis the patient has white count of 7.5, hemoglobin of 12.6, hematocrit of 36.3 and platelets of 182. He has a PT of 12.7, INR 1.1, his D-dimer is 2001. On chemistries he has a sodium of 122, potassium of 4.3, BUN of 9 and creatinine 0.59. His nonfasting glucose is 92. He has a total bilirubin of 0.7, AST of 45, ALT 33 and alkaline phosphatase of 81. His albumin is 3.1. He has an LDH of 579, CRP of 15.2, procalcitonin is 0.17 and a lactate of 1.5 his total CK is 385 with CK-MB of 6.46 for an index of 1.7. His troponin is negative at less than 0.012. His alcohol screening is less than 10. COVID screening is negative. In the ER the patient received to sepsis bolus of lactated Ringer's Zosyn 4.5 g IV, Levaquin 750 mg IV and vancomycin 1250 mg IV. General surgery is contacted related to sacral wound requiring debridement and Dr. Farias agrees to consult. Orthopedics is also contacted and Dr. Betancourt agrees to consult. The patient is admitted to the hospitalist service for sacral unstageable decubitus ulcer and right hip fracture. Discharge Providers Provider Date of admission: 06/18/20 06:52 Discharge Date: 06/24/20 Consults: 06/18/20 06:39 Consult to Dietitian, Adult Routine Comment: Reason For Exam: Or muscle mass, tissue breakdown, femur fracture Consult to Discharge Planning Routine Comment: 06/18/20 07:43 Consult to Orthopedic Surgery Routine Comment: Consulting Provider: Carlitos Betancourt Reason for consultation: Closed Right intertrochanteric hip fracture Has provider been notified: Yes 06/18/20 07:44 Consult to General Surgery Routine Comment: Consulting Provider: Ying Farias Reason for consultation: Sacral decubitus needing debridement. Has provider been notified: Yes 06/18/20 22:24 Consult to Discharge Planning Routine Comment: Consult to Physical Therapy Evaluate & Treat Comment: Physician Instructions: Evaluate and Treat Consult to Respiratory Therapy Evaluate & Treat Comment: Physician Instructions: Evaluate and treat 06/19/20 07:35 Consult to Dietitian, Adult Routine Comment: Reason For Exam: EtOH 06/19/20 07:39 Consult to Occupational Therapy Evaluate & Treat Comment: Physician Instructions: Evaluate and treat Discharge provider: Edi Doyle DO Summary Hospital Course Discharge Diagnosis: Please see hospital course by problem list noted below. Hospital Course: Pradip Barron is a 65-year-old male with a past medical history significant for hypertension, tobacco dependence, and alcohol dependence who presented to the ED via EMS with right hip pain due to intertrochanteric fracture, he was admitted for orthopedic interventions and course complicated by an acute blood loss anemia requiring transfusion of 2U PRBC. Once authorization obtained from his insurance, patient was discharged to SNF for continued therapies after fracture. 1. Acute pathological right comminuted intertrochanteric femur fracture, acute, present on admission, active. -Patient presented after sustaining a ground level fall 10 days prior to admission with abrupt onset right hip pain and inability to ambulate. Patient was mobilizing using wheelchair at home. -Hip x-ray demonstrated comminuted right intertrochanteric femur fracture. -Consulted Orthopedic surgery, Dr. Betancourt, who performed ORIF, patient currently POD#6. -Continue aspirin 81 mg twice daily for VTE prophylaxis and famotidine 20 mg twice daily for GI prophylaxis. -Continue calcium and vitamin-D3 supplementation. Patient will need to be treated for osteoporosis by orthopedic surgery or PCP. -continue PT and OT at [facility]. -Tylenol and Tylenol with codeine as needed for pain (patient requested Tylenol with codeine based on previous experience) 2. Acute on chronic blood loss anemia, present on admit -patient has chronic iron deficiency anemia documented as far back as 2015 with unknown prior workup -transfused 2 units PRBC for symptomatic anemia related to hip fracture, with improvement in tachycardia, h/h remained stable after transfusion. -consider outpatient upper and lower endoscopies for chronic anemia evaluation 3. Sacral decubitus ulcers with eschar, acute, unstageable, present on admission. Active. -Patient presented with 7 cm x 6 cm sacral decubitus covered with black eschar and is unstageable. -Blood cultures x2 have no growth to date other than 1 bottle with coag-negative staph which represents skin contamination. -Consulted general surgery, Dr. Farias, who performed bedside debridement. Continue wound care per nursing. General surgery does not feel that sacral decubitus pressure ulcer is infected and discontinued antibiotics (received vancomycin per pharmacist, levofloxacin and Zosyn). -Continue frequent turning, repositioning and offloading. 4. Hyponatremia, acute on chronic, present on admission. Active. -Secondary to chronic alcohol use, dehydration and poor nutritional intake. -Initial sodium 122. Sodium level slightly improved with IV fluid hydration and stable at 125 -NS discontinued 06/20 5. Alcohol dependence, chronic, present on admission. Stable. -Patient reports consuming 3 beers a day. Patient has history of alcohol withdrawal with delirium tremens but denies history of alcohol withdrawal seizure. -Alcohol level < 10 on admission. -Patient's CIWA score has remained low without evidence of acute withdrawal. -Continue folic acid 1 mg daily, thiamine 100 mg daily and multivitamin daily. -Counseled the patient on alcohol use and recommended cutting back or abstaining from alcohol. -Obtained echocardiogram which was unremarkable and did not demonstrate alcohol-induced cardiomyopathy. 6. History of hypertension, chronic, present on admission. Inactive. -Patient is not medically treated. -blood pressures have been normal to slightly elevated since admission, related to pain most likely. Recommend outpatient monitoring of blood pressure. 7. Tobacco dependence, chronic, present on admission. Stable. -Patient reports he smokes 0.5 ppd every 3 days. -Continue Nicoderm patch daily to prevent nicotine withdrawal. -Counseled patient and recommended indefinite smoking cessation. 8. Severe chronic protein calorie malnutrition, present on admission. Stable. -BMI 20.6. Secondary due to physical immobility and chronic alcohol use as evidence by 12.2% unintentional weight loss in 3 months, meeting <50% EER in past 3 months, patient found on floor by EMS after suffering hip fracture and had been using wheelchair for weeks prior due to weakness, imaging showing diffuse osteopenia, and sacral decubitus ulcers with eschar. -Consulted dietitian appreciate her time and recommendations. -Patient is high risk of infection, surgical complication, morbidity and mortality due to poor nutritional status with poor ability to heal. 9. hypomagnesemia, acute, resolved. -received 1 g IV magnesium for serum magnesium level 1.5 Code status: Full code, patient designates Krupa Iniguez to be his surrogate decision maker. VTE prophylaxis: ASA Disposition: Discarge to [facility]. Time Spent with Patient Time spent: Greater than 30 minutes Exam Vital Signs (past 8 hours): - 06/24/20 04:11 06/24/20 08:00 Temperature 97.2 F L 98.2 F Pulse Rate 79 87 Respiratory Rate 16 15 Blood Pressure 130/90 141/94 H Pulse Oximetry 99 100 Oxygen Delivery Method Room Air Oxygen Flow Rate 0 Narrative Exam Narrative: General: Alert and cooperative male no acute distress Lungs: Coarse bilateral breath sounds, likely chronic associated with smoking CV: RRR no m/r/g Abdomen: Soft, non-distended, non-tender. Extremities: Right thigh edema stable, hip dressing intact Neurological: Affect normal, speech normal Objective Labs Result Diagrams: 06/21/20 05:05 06/22/20 04:55 [facility] Medical History Alcohol abuse History of pneumothorax Hypertension Surgical History History of hip surgery History of knee surgery Family History Brother Cancer Mother Alzheimer's dementia Social History household members: none Smoking Status: Current every day smoker alcohol intake: current Discharge Plan Discharge Plan Patient Disposition: SNF Other facility: [facility] Provider Discharge Comment: Pradip Barron is a 65-year-old male with a past medical history significant for hypertension, tobacco dependence, and alcohol dependence who presented to the ED via EMS with right hip pain due to intertrochanteric fracture, he was admitted for orthopedic interventions and course complicated by an acute blood loss anemia requiring transfusion of 2U PRBC. Once authorization obtained from his insurance, patient was discharged to SNF for continued therapies after fracture. 1. Acute pathological right comminuted intertrochanteric femur fracture, acute, present on admission, active. -Patient presented after sustaining a ground level fall 10 days prior to admission with abrupt onset right hip pain and inability to ambulate. Patient was mobilizing using wheelchair at home. -Hip x-ray demonstrated comminuted right intertrochanteric femur fracture. -Consulted Orthopedic surgery, Dr. Betancourt, who performed ORIF, patient currently POD#6. -Continue aspirin 81 mg twice daily for VTE prophylaxis and famotidine 20 mg twice daily for GI prophylaxis. -Continue calcium and vitamin-D3 supplementation. Patient will need to be treated for osteoporosis by orthopedic surgery or PCP. -continue PT and OT at [facility]. -Tylenol and Tylenol with codeine as needed for pain (patient requested Tylenol with codeine based on previous experience) 2. Acute on chronic blood loss anemia, present on admit -patient has chronic iron deficiency anemia documented as far back as 2015 with unknown prior workup -transfused 2 units PRBC for symptomatic anemia related to hip fracture, with improvement in tachycardia, h/h remained stable after transfusion. -consider outpatient upper and lower endoscopies for chronic anemia evaluation 3. Sacral decubitus ulcers with eschar, acute, unstageable, present on admission. Active. -Patient presented with 7 cm x 6 cm sacral decubitus covered with black eschar and is unstageable. -Blood cultures x2 have no growth to date other than 1 bottle with coag-negative staph which represents skin contamination. -Consulted general surgery, Dr. Farias, who performed bedside debridement. Continue wound care per nursing. General surgery does not feel that sacral decubitus pressure ulcer is infected and discontinued antibiotics (received vancomycin per pharmacist, levofloxacin and Zosyn). -Continue frequent turning, repositioning and offloading. 4. Hyponatremia, acute on chronic, present on admission. Active. -Secondary to chronic alcohol use, dehydration and poor nutritional intake. -Initial sodium 122. Sodium level slightly improved with IV fluid hydration and stable at 125 -NS discontinued 06/20 5. Alcohol dependence, chronic, present on admission. Stable. -Patient reports consuming 3 beers a day. Patient has history of alcohol withdrawal with delirium tremens but denies history of alcohol withdrawal seizure. -Alcohol level < 10 on admission. -Patient's CIWA score has remained low without evidence of acute withdrawal. -Continue folic acid 1 mg daily, thiamine 100 mg daily and multivitamin daily. -Counseled the patient on alcohol use and recommended cutting back or abstaining from alcohol. -Obtained echocardiogram which was unremarkable and did not demonstrate alcohol-induced cardiomyopathy. 6. History of hypertension, chronic, present on admission. Inactive. -Patient is not medically treated. -blood pressures have been normal to slightly elevated since admission, related to pain most likely. Recommend outpatient monitoring of blood pressure. 7. Tobacco dependence, chronic, present on admission. Stable. -Patient reports he smokes 0.5 ppd every 3 days. -Continue Nicoderm patch daily to prevent nicotine withdrawal. -Counseled patient and recommended indefinite smoking cessation. 8. Severe chronic protein calorie malnutrition, present on admission. Stable. -BMI 20.6. Secondary due to physical immobility and chronic alcohol use as evidence by 12.2% unintentional weight loss in 3 months, meeting <50% EER in past 3 months, patient found on floor by EMS after suffering hip fracture and had been using wheelchair for weeks prior due to weakness, imaging showing diffuse osteopenia, and sacral decubitus ulcers with eschar. -Consulted dietitian appreciate her time and recommendations. -Patient is high risk of infection, surgical complication, morbidity and mortality due to poor nutritional status with poor ability to heal. 9. hypomagnesemia, acute, resolved. -received 1 g IV magnesium for serum magnesium level 1.5 Code status: Full code, patient designates Krupa Iniguez to be his surrogate decision maker. VTE prophylaxis: ASA Disposition: Discarge to [facility]. Discharge orders & Medications Prescriptions: New acetaminophen 325 mg Tablet 650 mg PO Q6HR PRN (Reason: Fever/Mild Pain (1-3)) 30 Days Qty: 60 RF: 0 aspirin 81 mg Tablet,Delayed Release (Dr/Ec) 81 mg PO BID 36 Days Qty: 72 RF: 0 calcium carbonate-vitamin D3 [Oyster Shell Calcium-Vit D3] 500 mg(1,250mg) -200 unit Tablet 1 tab PO BIDWM 30 Days Qty: 30 RF: 0 acetaminophen-codeine 300-30 mg Tablet 1 tab PO Q4HR PRN (Reason: Pain, Moderate (4-6)) 7 Days Qty: 30 RF: 0 famotidine [Pepcid AC] 20 mg Tablet 20 mg PO BID 30 Days Qty: 60 RF: 0 docusate sodium [DOK] 100 mg Capsule 100 mg PO BID 14 Days Qty: 28 RF: 0 folic acid 1 mg Tablet 1 mg PO DAILY 30 Days RF: 0 nicotine 7 mg/24 hr Patch 24 Hour 7 mg topical DAILY 21 Days Qty: 21 RF: 0 multivitamin with folic acid [Tab-A-Viral] 400 mcg Tablet 1 tab PO DAILY 30 Days Qty: 30 RF: 0 polyethylene glycol 3350 17 gram Powder In Packet 17 gm PO DAILY 14 Days Qty: 14 RF: 0 thiamine HCl (vitamin B1) [Vitamin B-1] 100 mg Tablet 100 mg PO DAILY 30 Days Qty: 30 RF: 0 Discharge Health Status Precautions: [place] Diet/Activity/Treatments Diet: Diet as Tolerated and Low-sodium Liquid consistency: Normal/Thin Food texture: Regular Activity: As tolerated Special Rehabilitation Services Reason for rehabilitation: Post-operative therapy Rehab type: Physical therapy and Occupational therapy Quality VTE Deep Vein Thrombosis/Pulmonary Embolism Present on Admission: No
--- NOTE | 2020-06-24 11:09 | CM.DPNOTE ---
Faxed Discharge records to [facility], Attn: Randolhp Syed. Will fax Covid result when completed. Alyssa Anderson CM Asst.
--- NOTE | 2020-06-24 11:22 | PT.IPTN ---
Current Diagnoses Gangrene, not elsewhere classified (06/18/20) Displaced intertrochanteric fracture of right femur, initial encounter for closed fracture (06/18/20) Surgery Performed Operation Date: 06/18/20 17:00 Actual Procedures p Intramedullary Nailing Femur(Right) - Carlitos Betancourt MD Physical Therapy Treatment Note M2 PT-IP Current Condition Start: 06/19/20 08:21 Freq: NEEDED Status: Active Protocol: Document 06/21/20 14:12 MA (Rec: 06/21/20 14:12 MA [id number]) Physical Therapy Current Condition Current Condition Evaluation Date 06/19/20 Treatment Diagnosis R displaced IT fracture s/p CMN; sacral PI; difficulty in walking Onset Date 06/07/20 Precautions Other Precautions caution with sacral PI to avoid shear forces Weight Bearing Status Weight Bearing Status Weight Bear as Tolerated M3 PT-IP Subjective Start: 06/19/20 08:21 Freq: NEEDED Status: Active Protocol: Document 06/24/20 10:56 CLB (Rec: 06/24/20 11:37 CLB [id number]) Subjective Physical Therapy Visit Type Type Treatment Note Visit Start Time 10:56 Visit Stop Time 11:22 Total Visit Minutes 26 Physical Therapy Visit Comments Patient Comments Pt willing to get OOB for a walk. Therapy Pain Assessment Pain When Pain Assessed During Mobility Pain Present Pain Present Pain Reported M4 PT-IP Mobility and Gait Start: 06/19/20 08:21 Freq: NEEDED Status: Active Protocol: Document 06/24/20 10:56 CLB (Rec: 06/24/20 11:37 CLB [id number]) PT-Bed Mobility Assessment Supine to Sit Supine to Sit Minimal Assistance,1 Person Assistance,Head of Bed Elevated Sit to Supine Sit to Supine Minimal Assistance,1 Person Assistance,Head of Bed Elevated Scooting Scooting to Edge of Bed Standby Assistance PT-Transfer Assessment Sit to and From Stand Sit to and from Stand Contact Guard Assistance,1 Person Assistance,Use of Upper Extremities Equipment Transfer Assistive Device Gait Belt,Front Wheeled Walker Orthotic/Prosthetic Devices or Brace: No Transfer Ability Level of Assist Contact Guard Assistance Comments Mobility Comments Pt requires Min A of RLE during supine-sit then is able to scoot to EOB SBA. Pt then stood requiring CGA and ambulate ~230ft. Pt ambulates with small step thru gait pattern, pt takes rest breaks as he admires the artwork on gastel[employer]. Pt required Min A of RLE while getting back into bed. Pt refused ther ex in supine at end of tx. Left pt in bed with alarm on and all needs within reach. Gait Assessment Gait Gait Assistance Required: Contact Guard Assist,1 Person Assist Distance (Feet) 230 Assistive Devices Assistive Device Gait Belt,Front Wheeled Walker Orthotic/Prosthetic Devices or Brace: No Gait Deviations General Gait Pattern Antalgic,Decreased Stride Length,Decreased Feet Clearance,Flexed Trunk,Step-to Gait,Wide Based Gait Factors Limiting Gait Function Factors Limiting Gait Function Decreased Activity Tolerance, Decreased Sensation,Decreased Strength,Difficulty Following Directions,Limited Range of Motion,Pain,Poor Balance,Poor Safety Awareness Comments Gait Comments Pt requires CGA during ambulation for safety using small step thru gait pattern with wide stance, pt has improved with walker management and remains inside walker frame. Stair Climbing Assessment Comments Stair Climbing Comments Not assessed. At this time, pt will d/c to SNF tomorrow. If d/c is changed, will need to complete 1 step with L rail for home mgt. PT-Balance Assessment Sitting Balance and Reactions Static Sitting Balance Ability Good Dynamic Sitting Balance Ability Good Standing Balance and Reactions Static Standing Balance Ability Good Dynamic Standing Balance Ability Fair Device Used FWW M5 PT-IP Objective Assessments Start: 06/19/20 08:21 Freq: NEEDED Status: Active Protocol: Document 06/19/20 12:30 AW (Rec: 06/19/20 13:03 AW [id number]) Orientation Orientation/Cognition Level of Alertness Confusional State Orientation Name,Month,Place,Situation Language Function Ability No Deficits Noted Safety Awareness Decreased Safety Awareness Memory Description Short Term Impaired Gross Range of Motion Lower Extremity ROM Assessment Right Impaired Strength Lower Extremity Strength Assessment Bilaterally Impaired Hip L 4/5; R 3-/5 Knee L 4/5; R 3/5 Ankle B 4-/5 Sensation Assessment Sensation Gross Sensation Right LE Impaired Proprioception (Position) Impaired Muscle Tone Muscle Tone WNL Yes M6 PT-IP Treatment Start: 06/19/20 08:21 Freq: NEEDED Status: Active Protocol: Document 06/23/20 11:03 CLB (Rec: 06/23/20 14:02 CLB [id number]) Physical Therapy Treatment Exercises Exercises Ankle Pumps,Heel Slides M7 PT-IP Assessment and Plan Start: 06/19/20 08:21 Freq: NEEDED Status: Active Protocol: Document 06/24/20 10:56 CLB (Rec: 06/24/20 11:37 CLB [id number]) PT Summary Assessment and Plan Summary Impairments Pain,ROM,Strength,Balance, Sensation,Cognition,Bed Mobility,Transfers,Gait, Activity Tolerance Progress Towards Goals Progressing Toward Goals Assessment Summary Pt increased gait distance and gait quality, using walker appropriately and small step thru gait pattern. Pt continues to require Min A during supine<>sit of RLE. Due to increase gait distance pt didn't feel as if he could perform ther ex this session. Goals Bed Mobility Goal Standby Assistance Transfer Goal Contact Guard Assistance,Front Wheeled Walker Gait Goal Standby Assistance,Front Wheel Walker Gait Distance 75 Other Goals up/down one step with L rail CGA (ONLY if going home) Days to Meet Goals 10 Frequency of Treatment Frequency Of Treatment Twice a Day Treatment Plan Physical Therapy Treatment Plan Bed Mobility Training,Transfer Training,Gait Training, Therapeutic Exercise,Balance Retraining,Post Op Education, Discharge Planning,Hot or Cold Pack,Neuromuscular Re-ed Other Recommendations and Next Treatment bed mobility, transfers, Focus ambulation with FWW Recommendations To Nursing Amount of Assist Needed 1 Person Assist Discharge Recommendations PT Discharge Recommendations SNF Rehab Equipment Needed for Home Before defer to subacute rehab Discharge setting, may need FWW prior to DC home. Transportation Needs at Discharge Wheelchair/Cabulance
[2020-06-24 11:24] LABS: COVID19 -Nasal RAPID Negative (Negative)
[2020-06-24 11:33] VITALS: BP 118/72; PULSE 106; RESP 16; TEMP 36.9; O2SAT 95
--- NOTE | 2020-06-24 13:21 | CM.DANOTE ---
DCP/continued: Reviewed chart. HEALTH CARE COACH placed call this AM to Randolph at [facility] in [place]. Randolph reports that he did obtain authorization this AM from [place]. Therefore, patient okay to d/c to [facility]. Orders obtained and clinical, orders, and PASSR faxed to [facility]. Randolph reports that [facility] will need to arrange transport. HEALTH CARE COACH completed medicaid transport form and faxed to [phone]. Received return phone call from Medicaid and patient scheduled to be picked up by [facility] transport at 2:30pm. RN/Conchita given number to call report and orange picker time. Met with patient re: above d/c plan. Patient aware and agreeable. Patient notified that he cannot smoke at facility and must self quarantine. Notified [facility] social media campaign manager/Gm of above plan. P: [facility] today via medicaid transport. KATT Flaherty
--- NOTE | 2020-06-24 14:54 | PC.NURSE ---
Transfer: Pt readied for transfer to [facility]. Report called to admitting nurse. Reviewed hospital course, pt displays some impaired judgement. Waited hours before calling for assistance when down at home, found smoking in his room here at hosp. He reported it was his last one but when his belongings were gathered for transfer more cigs were found. They were made aware and they will lock up pt's cigs when he gets there. They are a no smoking facility as well. Pt has extensive wounds from his falls as well as incisions. Buttock area was debrided during his surgery. Much of report was spent on discussing skin. Reviewed adl's and mobility. Questions answered.
== END 2020-06-24 14:10 | DRG 463 ==
LOC: ED 06:52 → AC 06:53
PROVIDERS: Internal Medicine; Orthopaedic Surgery Adult Reconstructive Orthopaedic Surgery; Admitting Provider Nurse Practitioner Adult Health; Emergency Provider Emergency Medicine; Referring Provider Emergency Medicine; Visit Provider Nurse Practitioner Adult Health
PROC: 0QS636Z Reposition Right Upper Femur with Intramedullary Internal Fixation Device, Percutaneous Approach (ICD-10-PCS; CPT 27245; principal; 2020-06-18 17:00)
DX: S72.141A Displaced intertrochanteric fracture of right femur, initial encounter for closed fracture (principal); E43 Unspecified severe protein-calorie malnutrition; I96 Gangrene, not elsewhere classified; E87.1 Hypo-osmolality and hyponatremia; D62 Acute posthemorrhagic anemia; L89.321 Pressure ulcer of left buttock, stage 1; L89.312 Pressure ulcer of right buttock, stage 2; J44.9 Chronic obstructive pulmonary disease, unspecified; F10.20 Alcohol dependence, uncomplicated; F17.210 Nicotine dependence, cigarettes, uncomplicated; R00.0 Tachycardia, unspecified; Z68.20 Body mass index [BMI] 20.0-20.9, adult; W18.30XA Fall on same level, unspecified, initial encounter; Z20.828 Contact with and (suspected) exposure to other viral communicable diseases
CPT/HCPCS: 11042; 36415; 36430; 51701; 70450; 71260; 72125; 73502; 74177; 76000; 80048; 80053; 80320; 81001; 82550; 82553; 82607; 82728; 82746; 83036; 83540; 83550; 83605; 83615; 83735; 84100; 84145; 84443; 84484; 85014; 85018; 85025; 85379; 85610; 86140; 86850; 86900; 86901; 87040; 87070; 87077; 87150; 87186; 87205; 87635; 93005; 93306; 94667; 94760; 94762; 96361; 96365; 96367; 96375; 97110; 97116; 97162; 97166; 97530; 97535; 99221; 99284; 99291; P9016; A9270; J0690; J1170; J2250; J2405; J2543; J2704; J3010; J3475; Q9957; Q9967